=== PATIENT | female | born 1980 ===

== ENCOUNTER 2020-10-25 10:49 | Emergency (ER) | payer OTHER, SELFPAY ==
[2020-10-25 10:57] VITALS: BP 166/69; PULSE 77; RESP 17; TEMP 36.5; O2SAT 97; BMI 40.2
--- NOTE | 2020-10-25 11:03 | ED_ITS ---
HPI - Extremity Problem General Chief complaint: Extremity Injury, Upper Stated complaint: shoulder and arm pain,rt Time Seen by Provider: 10/25/20 10:57 Source: patient Mode of arrival: ambulatory Limitations: no limitations History of Present Illness HPI Narrative: 40 yo female here with right sided neck pain which radiates to the right shoulder and down the right arm x 1 month. No injury or trauma. Patient taking Tylenol and using he denies at home with continued pain. No numbness or tingling. MD Complaint: extremity pain Onset (ago): month(s) Pain Consistency: intermittent Location: right Quality: burning Radiation: distal Relieving factors: nothing Exacerbating factors: nothing Associated symptoms: denies other symptoms Related Data Previous Rx's Medication Instructions Recorded dexamethasone [Decadron] 4 mg PO DAILY #5 tab 10/25/20 hydrocodone-acetaminophen 1 tab PO Q4-6H PRN #5 tab 10/25/20 methocarbamol [Robaxin-750] 750 mg PO Q8H #10 tab 10/25/20 Allergies Allergy/AdvReac Type Severity Reaction Status Date / Time aspirin [Aspirin] Allergy Unknown HIVES, Verified 10/25/20 10:59 swollen throat penicillin V Allergy Unknown swollen Verified 10/25/20 10:59 throat Penicillins Allergy Unknown BREATHING Verified 10/25/20 10:59 PROBLEM SEAFOOD Allergy Unknown ANAPHYLAXIS Uncoded 07/07/20 15:23 Shrimp Flavor Allergy Unknown Unknown Uncoded 10/25/20 10:59 Review of Systems Review of Systems: Yes all other systems are reviewed and are negative Constitutional: Constitutional: Reports no additional constitutional complaints, Denies body ache(s), Denies chills, Denies fever(s), Denies headache(s) and Denies weakness Eyes: Eyes: Reports no additional eye complaints and Denies change in vision ENT: Reports system reviewed and no additional complaints, except as documented, Denies dizziness, Denies headache(s), Denies nasal congestion, Denies nasal discharge and Denies neck pain Cardiovascular: Cardiovascular: Reports no additional cardiovascular complaints, Denies chest pain, Denies leg edema and Denies dyspnea Respiratory: Respiratory: Reports no additional respiratory complaints, Denies cough and Denies dyspnea Gastrointestinal: Gastrointestinal: Reports no additional gastrointestinal complaints, Denies abdominal pain, Denies diarrhea, Denies nausea and Denies vomiting Genitourinary: Genitourinary: Reports no additional female genitourinary complaints and Denies urinary incontinence Musculoskeletal: Musculoskeletal: Reports no additional musculoskeletal complaints, Denies back pain, Reports arthralgias, Denies joint swelling, Denies neck pain, Denies numbness and Denies tingling Integumentary/Breasts: Skin/Breast: Reports system reviewed and no additional complaints, except as docu and Denies rash Neurologic: Reports system reviewed and no additional complaints, except as documented, Denies Abnormal speech present, Denies dizziness, Denies headache(s), Denies numbness, Denies tingling and Denies weakness [facility] Past Medical History Attestation statement: The following information was validated with the patient. Source: old records reviewed and nursing notes reviewed Medical History Asthma Heart murmur Surgical History History of carpal tunnel surgery Social History Social History Advance Directives: No Advance Directives Information Provided: No Physical Exam Vital Signs: Vital Signs: Last Vital Signs Temp 97.7 F 10/25/20 10:57 Pulse 77 10/25/20 10:57 Resp 17 10/25/20 10:57 BP 166/69 H 10/25/20 10:57 Pulse Ox 97 10/25/20 10:57 Body Mass Index 40.2 Const: General: cooperative, healthy appearing, comfortable and no acute distress Orientation/consciousness: patient oriented x3 Limitations: no limitations HENMT: Head: Yes normal to inspection Ears: hearing grossly normal bilaterally General nose exam: Normal external nose present Face and sinus: Yes normal facial exam Mouth: Normal oral and palatal mucosa present Throat: Yes posterior oropharynx normal Eyes: General: appearance normal, both eyes and all related structures Pupils: Equal, round and reactive pupils present Neck: Neck: Yes normal visual inspection Chest: Chest palpation & inspection: normal inspection of the chest Resp: Effort & Inspection: normal respiratory effort Auscultation: clear to auscultation bilaterally Cardio: Rate: regular rate Rhythm: regular rhythm Peripheral pulses: Peripheral pulses 2+ throughout GI: Inspection: Yes normal to inspection Palpation (GI): Soft to palpation and nontender Auscultation: normal bowel sounds Back/Spine/Pelvis: Thoracic/Lumbar Spine: thoracic and lumbar spine normal to inspection Skin: General skin exam: no rashes or lesions noted Neuro: General: patient oriented x3, no focal motor deficits and normal sensation to monofilament Cranial nerves: Yes Equal, round and reactive pupils present Cognition (Neuro): normal cognition Speech: No Abnormal speech present Gait exam (Neuro): Normal gait present Motor exam (neuro): 5/5 motor strength present throughout Extrem: Other: Pain with palpable muscle spasm over the right trapezius. When manipulated the patient tells me she has pain which radiates down the right arm. Full range of motion of shoulder. Neurovascularly intact distally. Normal cap refill. No cervical tenderness. General: Yes normal to inspection Course Course Course Narrative: X-ray show a bone spur. Exam is more consistent with cervical radiculopathy. No neurological deficits. Discussed supportive care at home and follow-up outpatient with primary care. Reviewed worrisome signs and symptoms of when to return to the emergency department. Comfortable discharge home. MDM - Extremity (Nontraumatic) Imaging Data shoulder xray: Attestation: I personally reviewed and interpreted this imaging study as follows: Radiologist's impression: EXAMINATION: XR SHOULDER, RIGHT CLINICAL INFORMATION: Pain. No known trauma. COMPARISON: Radiographs right shoulder 01/17/2018 TECHNIQUE: Right shoulder is imaged in 3 views. FINDINGS: There is no fracture, dislocation, or destructive process. The glenohumeral joint is unremarkable. No joint narrowing or erosive change. The acromioclavicular alignment is normal. No degenerative changes. There are no visible rotator cuff calcifications. There is a small spur at the greater tuberosity. XR/XR shoulder RT min 2V IMPRESSION: Small spur greater tuberosity. Otherwise unremarkable exam. No arthropathy or visible rotator cuff calcifications. Discharge Plan Discharge Clinical Impression: Cervical radiculopathy Patient Disposition: Home, Self-Care Instructions: Cervical Radiculopathy (ED) Additional Instructions: Follow-up with your PCP. Consider seeing a chiropracter Heat to the area gentle stretching Prescriptions: New dexamethasone [Decadron] 4 mg tablet 4 mg PO DAILY Qty: 5 RF: 0 methocarbamol [Robaxin-750] 750 mg tablet 750 mg PO Q8H Qty: 10 RF: 0 hydrocodone-acetaminophen 5-300 mg tablet 1 tab PO Q4-6H PRN (Reason: pain) Qty: 5 RF: 0 Referrals: Stormy Browne MD [Primary Care Provider] - 2 days Interventions: ED Discharge Assessment Last Done: 10/25/20 12:20 Discharge Date/Time: 10/25/20 12:21
== END 2020-10-25 12:21 | disposition home or self-care (01) ==
PROVIDERS: Emergency Provider Emergency Medicine; PCP Internal Medicine
DX: M54.12 Radiculopathy, cervical region (principal)
CPT/HCPCS: 73030; 99282; 99283

== ENCOUNTER 2020-11-22 13:26 | Emergency (ER) | payer OTHER, SELFPAY ==
[2020-11-22 14:09] VITALS: BP 167/75; PULSE 72; RESP 18; TEMP 36.5; O2SAT 97; BMI 41.1
--- NOTE | 2020-11-22 14:32 | XR_ITS ---
EXAMINATION: RIGHT HAND/WRIST. CLINICAL INFORMATION: History of carpal tenderness with worsening/hand/wrist pain. COMPARISON: None TECHNIQUE: 4 views. FINDINGS: There is no visible acute fracture, dislocation or subluxation seen. The soft tissues are normal. XR/XR hand wrist RT IMPRESSION: Unremarkable right hand exam.
--- NOTE | 2020-11-22 14:32 | US_ITS ---
EXAMINATION: US VENOUS WITH DOPPLER UPPER EXTREMITY, RIGHT CLINICAL INFORMATION: Edema and swelling COMPARISON: 01/22/2019 TECHNIQUE: Ultrasound of the upper extremity is performed using compression sonography and color and pulse Doppler flow with assessment of augmentation of flow. There is also imaging and Doppler assessment of the jugular and subclavian veins. Spectral analysis with color-flow imaging is performed. FINDINGS: Respiratory variation, normal compression, and augmented flow are noted throughout the upper extremity including the axillary, brachial, cubital, and radial and ulnar veins. There is normal flow in the internal jugular and subclavian veins. There is no visible deep or superficial thrombophlebitis. If the patient's symptoms progress, a followup ultrasound in 5 -7 days might be of value to exclude proximal propagation from a nonvisualized distal arm vein. US/US venous duplex UE RT IMPRESSION: No DVT demonstrated in the right upper extremity
[2020-11-22] MEDS: oxyCODONE HCl Immed Release 5 MG TABLET PO (14:45)
--- NOTE | 2020-11-22 15:23 | ED.GENADULT ---
HPI - General Adult General Chief complaint: General Medical Stated complaint: R WRIST PAIN SURGERY 04/09 Time Seen by Provider: 11/22/20 14:25 Source: patient Mode of arrival: ambulatory Limitations: no limitations History of Present Illness HPI narrative: 40yoF c PMHx of carpal release surgery to right wrist presenting to the ED with complaints of worsening right hand/wrist pain with swelling since yesterday worse today. Denies any dizziness, headaches, changes in vision, jaw pain, paresthesias, chest pain, shortness of breath, dyspnea on exertion, orthopnea, symptoms or any other symptoms complaints or concerns at this time. Related Data Previous Rx's Medication Instructions Recorded dexamethasone [Decadron] 4 mg PO DAILY #5 tab 10/25/20 hydrocodone-acetaminophen 1 tab PO Q4-6H PRN #5 tab 10/25/20 methocarbamol [Robaxin-750] 750 mg PO Q8H #10 tab 10/25/20 acetaminophen [Tylenol Extra 1,000 mg PO QID PRN #14 tab 11/22/20 Strength] oxycodone 5 mg PO BID PRN #10 tab 11/22/20 prednisone 40 mg PO DAILY 5 Days #10 tab 11/22/20 Allergies Allergy/AdvReac Type Severity Reaction Status Date / Time aspirin [Aspirin] Allergy Unknown HIVES, Verified 10/25/20 10:59 swollen throat penicillin V Allergy Unknown swollen Verified 10/25/20 10:59 throat Penicillins Allergy Unknown BREATHING Verified 10/25/20 10:59 PROBLEM SEAFOOD Allergy Unknown ANAPHYLAXIS Uncoded 07/07/20 15:23 Shrimp Flavor Allergy Unknown Unknown Uncoded 10/25/20 10:59 Review of Systems Review of Systems: Constitutional : No Fever, No Chills, No Night Sweats, No Fatigue, No Malaise Eyes: No Eye Pain,No Discharge, No Vision Changes Cardiovascular : No Chest Pain, No SOB, No Dyspnea on Exertion, No Orthopnea, No Edema, No Palpitations Respiratory : No Cough, No Sputum, No Wheezing, No Dyspnea Gastrointestinal : No Nausea, No Vomiting, No Diarrhea, No Constipation, No abdominal Pain Genitourinary : No Dysuria, No Urinary Frequency, No Hematuria, No Urinary Incontinence, No Urgency, No Flank Pain, No Urinary Flow Changes, No Hesitancy Musculoskeletal : + joint pain/swelling, No Myalgias Skin : No Skin Lesions, No rash Neuro : No Weakness, No Numbness, No Paresthesias, No Loss of Consciousness, No Dizziness, No Headache Psych : No Anxiety/Panic, No Depression, No SI/HI/AH/VH, No Social Issues, Heme/Lymph: No Bruising, No Bleeding,No Lymphadenopathy Endocrine : No Polyuria, No Polydipsia, No Temperature Intolerance Yes all other systems are reviewed and are negative [facility] Past Medical History Attestation statement: The following information was validated with the patient. Medical History Asthma Heart murmur Surgical History History of carpal tunnel surgery Social History Social History Advance Directives: No Advance Directives Information Provided: Yes Physical Exam Vital Signs: Vital Signs: Last Vital Signs Temp 97.7 F 11/22/20 14:09 Pulse 72 11/22/20 14:09 Resp 18 11/22/20 14:09 BP 167/75 H 11/22/20 14:09 Pulse Ox 97 11/22/20 14:09 Body Mass Index 41.1 vital signs have been reviewed as normal and appeared to be correct. Blood pressure hypertensive. Heart rate normal. Respiration rate normal. Temperature normal. Oxygen saturation normal. Appearance: Alert. Oriented X3. No acute distress. Head: Normal external exam. Normocephalic. Atraumatic. Eyes: PERRLA. EOMI. Conjunctiva and sclera normal. Eyelids normal. ENT: Pharynx normal. Uvula midline. Moist mucous membranes. Neck: Normal inspection. Neck supple. FROM. No adenopathy. Thyroid Normal. Trachea midline. No meningeal signs. No neck mass noted. CVS: Normal heart rate and rhythm. Heart sound normal. No murmurs noted. Pulses normal throughout. Respiratory: No respiratory distress. Painless inspiration. Breath sounds normal. No wheezes/rales/rhonchi noted. Chest nontender. No accessory muscle usage noted or decreased air movement noted. Back: Full range of motion noted. Skin: Skin warm and dry. Normal skin color. Normal skin turgor. No rashes/lesions/lacerations noted. Extremities: Patient tender to palpation to right volar aspect of the distal wrist positive phalen;s/prayer sign consistent with carpal tunnel syndrome patient does have soft tissue swelling. No pitting edema to upper extremities. Patient has full range of motion of right shoulder/right elbow/right wrist and digits. No obvious deformities. No rashes/lesion/induration/fluctuance or signs infection noted. No laxity noted. No lower extremity edema. No calf tenderness noted. Otherwise all other Extremities exhibit normal range of motion and nontender. Neuro: Oriented X 3. No motor deficit. No sensory deficit. Reflexes normal. Course Course Course Narrative: 40yoF c PMHx of carpal release surgery to right wrist presenting to the ED with complaints of worsening right hand/wrist pain with swelling since yesterday worse today. - x-ray of right hand/wrist obtained and negative for any acute processes noted. - ultrasound of right upper extremity obtain if negative will DC home with symptomatic treatment along with instructions to return if any new or worsening symptoms and referral to hand surgeon. Patient understands agrees the plan. Medical Decision Making Medical Records Medical records reviewed: Yes I reviewed the patient's medical records. Lab Data Lab results reviewed: Yes I reviewed the patient's lab results. Imaging Data Right hand/wrist: Attestation: I personally reviewed and interpreted this imaging study as follows: Radiologist's impression: FINDINGS: There is no visible acute fracture, dislocation or subluxation seen. The soft tissues are normal. XR/XR hand wrist RT IMPRESSION: Unremarkable right hand exam. Right upper extremity venous Doppler: Attestation: I personally reviewed and interpreted this imaging study as follows: Radiologist's impression: FINDINGS: Respiratory variation, normal compression, and augmented flow are noted throughout the upper extremity including the axillary, brachial, cubital, and radial and ulnar veins. There is normal flow in the internal jugular and subclavian veins. There is no visible deep or superficial thrombophlebitis. If the patient's symptoms progress, a followup ultrasound in 5 -7 days might be of value to exclude proximal propagation from a nonvisualized distal arm vein. US/US venous duplex UE RT IMPRESSION: No DVT demonstrated in the right upper extremity Discharge Plan Discharge Clinical Impression: Acute carpal tunnel syndrome of right wrist Patient Disposition: Home, Self-Care Instructions: Carpal Tunnel Surgery (DC) Prescriptions: New acetaminophen [Tylenol Extra Strength] 500 mg tablet 1,000 mg PO QID PRN (Reason: fever or pain) Qty: 14 RF: 0 prednisone 20 mg tablet 40 mg PO DAILY 5 Days Qty: 10 RF: 0 oxycodone 5 mg tablet 5 mg PO BID PRN (Reason: pain) Qty: 10 RF: 0 No Action dexamethasone [Decadron] 4 mg tablet 4 mg PO DAILY Qty: 5 RF: 0 methocarbamol [Robaxin-750] 750 mg tablet 750 mg PO Q8H Qty: 10 RF: 0 hydrocodone-acetaminophen 5-300 mg tablet 1 tab PO Q4-6H PRN (Reason: pain) Qty: 5 RF: 0 Referrals: Isela Mo MD [Physician] - 1 week Stand Alone Forms: Work/School Release Print Language: Lithuanian
== END 2020-11-22 16:54 | disposition home or self-care (01) ==
PROVIDERS: Emergency Provider Emergency Medicine; PCP Internal Medicine
DX: G56.01 Carpal tunnel syndrome, right upper limb (principal); M25.531 Pain in right wrist
CPT/HCPCS: 29125; 73110; 73130; 93971; 99283; 99284

== ENCOUNTER 2022-08-12 15:55 | Emergency (ER) | payer OTHER, SELFPAY ==
[2022-08-12 16:39] VITALS: BP 183/108; PULSE 71; RESP 18; TEMP 36.6; O2SAT 99; BMI 38.6
--- NOTE | 2022-08-12 21:57 | ED_ITS ---
HPI - General Adult General Chief complaint: General Medical Stated complaint: ?Dental infection Time Seen by Provider: 08/12/22 21:36 Source: patient Mode of arrival: ambulatory History of Present Illness HPI narrative: 32-year-old female who presents with left upper molar pain that started approximately 2 weeks ago after the ?tooth cracked? and since that time she is been attempting multiple times to make an appointment to see the dentist, she denies any fevers or chills but states she has noted some left cheek swelling and denies any ear pain, difficulty swallowing or difficulty breathing. Related Data Previous Rx's Medication Instructions Recorded dexamethasone 4 mg tablet 4 mg PO DAILY #5 tabs 10/25/20 (Decadron) hydrocodone 5 mg-acetaminophen 300 1 tab PO Q4-6H PRN pain #5 tabs 10/25/20 mg tablet methocarbamol 750 mg tablet 750 mg PO Q8H #10 tabs 10/25/20 (Robaxin-750) acetaminophen 500 mg tablet 1,000 mg PO QID PRN fever or pain 11/22/20 (Tylenol Extra Strength) #14 tabs oxycodone 5 mg tablet 5 mg PO BID PRN pain #10 tabs 11/22/20 prednisone 20 mg tablet 40 mg PO DAILY rash 5 days #10 tabs 11/22/20 clindamycin HCl 300 mg capsule 300 mg PO Q6H 5 days #20 caps 08/12/22 Allergies Allergy/AdvReac Type Severity Reaction Status Date / Time aspirin [Aspirin] Allergy Unknown HIVES, Verified 08/12/22 16:39 swollen throat penicillin V Allergy Unknown swollen Verified 08/12/22 16:39 throat Penicillins Allergy Unknown BREATHING Verified 08/12/22 16:39 PROBLEM SEAFOOD Allergy Unknown ANAPHYLAXIS Uncoded 07/07/20 15:23 Shrimp Flavor Allergy Unknown Unknown Uncoded 10/25/20 10:59 Review of Systems Review of Systems: Pertinent positives and negatives as stated in HPI 10 point review of systems is otherwise negative. [facility] Past Medical History Source: nursing notes reviewed Medical History Asthma Heart murmur Surgical History History of carpal tunnel surgery Social History Social History Advance Directives: No Advance Directives Information Provided: No Physical Exam ED Vital Signs: Vital Signs - 24 hr 08/12/22 16:39 Temperature 97.9 F Pulse Rate 71 Respiratory Rate 18 Blood Pressure 183/108 H Pulse Oximetry 99 Oxygen Delivery Method Room Air BMI result Body Mass Index 38.6 VITAL SIGNS: Reviewed. GENERAL: Well developed, well nourished, in no acute distress. HEAD: Normocephalic/atraumatic EYES: PERRLA, EOMI EARS: Ext canals without abnormality, TMs non-bulging and non-erythematous NOSE: Nares patent bilateral OROPHARYNX: no oral lesions noted, posterior pharynx clear, left upper molar that is obviously cracked and there is noted gingival swelling and some mild nuchal swelling is noted, there is no trismus NECK: Supple, no adenopathy LUNGS: Normal breath sounds. No adventitious sounds or accessory muscle use. SpO2<99> CARDIOVASCULAR: Regular rate and rhythm without noted murmurs ABDOMEN: Soft, non-tender, non-distended with bowel sounds. MUSCULOSKELETAL: No tenderness, deformities, or effusions noted on gross inspection. EXTREMITIES: No cyanosis, clubbing or edema. SKIN: Inspection of the skin reveals no rashes NEUROLOGIC: Alert and oriented x 4. Strength and sensation to light touch were grossly intact x 4. Course Course Course Narrative: 42-year-old female with noted cracked tooth and evidence to suggest dental infection without concerns for airway. Patient was given topical pain medication as well as Tylenol and initial dose of antibiotics. She was then discharged home in stable condition. Discharge Plan Discharge Clinical Impression: Abscess, dental Patient Disposition: Home, Self-Care Instructions: Dental Abscess (ED) Additional Instructions: 1. Resume all home medications as prescribed. 2. Complete the entire course of antibiotics as prescribed. 3. Tylenol 1000 mg, orally, every 6 hours as needed for pain control. Do not exceed 4000 mg within 24 hours. Additional pain relief can be obtained from application of an ice pack to unexposed skin for 5-10 minutes, 3 to 4 times a day. 4. Please attempt to make an appointment with your primary care provider/dentist at your earliest convenience. Return to the ER for worsening symptoms. Prescriptions: New clindamycin HCl 300 mg capsule 300 mg PO Q6H 5 Days Qty: 20 0RF No Action dexamethasone [Decadron] 4 mg tablet 4 mg PO DAILY Qty: 5 0RF methocarbamol [Robaxin-750] 750 mg tablet 750 mg PO Q8H Qty: 10 0RF hydrocodone-acetaminophen 5-300 mg tablet 1 tab PO Q4-6H PRN (Reason: pain) Qty: 5 0RF acetaminophen [Tylenol Extra Strength] 500 mg tablet 1,000 mg PO QID PRN (Reason: fever or pain) Qty: 14 0RF prednisone 20 mg tablet 40 mg PO DAILY 5 Days Qty: 10 0RF oxycodone 5 mg tablet 5 mg PO BID PRN (Reason: pain) Qty: 10 0RF Referrals: Stormy Browne MD [Primary Care Provider] -
[2022-08-12 22:00] VITALS: BP 198/94; PULSE 73; RESP 18; TEMP 35.7; O2SAT 100
--- NOTE | 2022-08-12 22:07 | ED.GENADULT ---
HPI - General Adult General Chief complaint: General Medical Stated complaint: ?Dental infection Time Seen by Provider: 08/12/22 21:36 Source: patient Mode of arrival: ambulatory Related Data Previous Rx's Medication Instructions Recorded dexamethasone 4 mg tablet 4 mg PO DAILY #5 tabs 10/25/20 (Decadron) hydrocodone 5 mg-acetaminophen 300 1 tab PO Q4-6H PRN pain #5 tabs 10/25/20 mg tablet methocarbamol 750 mg tablet 750 mg PO Q8H #10 tabs 10/25/20 (Robaxin-750) acetaminophen 500 mg tablet 1,000 mg PO QID PRN fever or pain 11/22/20 (Tylenol Extra Strength) #14 tabs oxycodone 5 mg tablet 5 mg PO BID PRN pain #10 tabs 11/22/20 prednisone 20 mg tablet 40 mg PO DAILY rash 5 days #10 tabs 11/22/20 clindamycin HCl 300 mg capsule 300 mg PO Q6H 5 days #20 caps 08/12/22 Allergies Allergy/AdvReac Type Severity Reaction Status Date / Time aspirin [Aspirin] Allergy Unknown HIVES, Verified 08/12/22 16:39 swollen throat penicillin V Allergy Unknown swollen Verified 08/12/22 16:39 throat Penicillins Allergy Unknown BREATHING Verified 08/12/22 16:39 PROBLEM SEAFOOD Allergy Unknown ANAPHYLAXIS Uncoded 07/07/20 15:23 Shrimp Flavor Allergy Unknown Unknown Uncoded 10/25/20 10:59 [facility] Past Medical History Medical History Asthma Heart murmur Surgical History History of carpal tunnel surgery Social History Social History Advance Directives: No Advance Directives Information Provided: No Physical Exam ED Vital Signs: Vital Signs - 24 hr 08/12/22 16:39 08/12/22 22:00 Temperature 97.9 F 96.3 F L Pulse Rate 71 73 Respiratory Rate 18 18 Blood Pressure 183/108 H 198/94 H Pulse Oximetry 99 100 Oxygen Delivery Method Room Air Room Air BMI result Body Mass Index 38.6 Discharge Plan Discharge Clinical Impression: Abscess, dental, Hypertension Patient Disposition: Home, Self-Care Instructions: Dental Abscess (ED) Additional Instructions: 1. Resume all home medications as prescribed. 2. Complete the entire course of antibiotics as prescribed. 3. Tylenol 1000 mg, orally, every 6 hours as needed for pain control. Do not exceed 4000 mg within 24 hours. Additional pain relief can be obtained from application of an ice pack to unexposed skin for 5-10 minutes, 3 to 4 times a day. 4. Please attempt to make an appointment with your primary care provider/dentist at your earliest convenience. Return to the ER for worsening symptoms. Prescriptions: New clindamycin HCl 300 mg capsule 300 mg PO Q6H 5 Days Qty: 20 0RF No Action dexamethasone [Decadron] 4 mg tablet 4 mg PO DAILY Qty: 5 0RF methocarbamol [Robaxin-750] 750 mg tablet 750 mg PO Q8H Qty: 10 0RF hydrocodone-acetaminophen 5-300 mg tablet 1 tab PO Q4-6H PRN (Reason: pain) Qty: 5 0RF acetaminophen [Tylenol Extra Strength] 500 mg tablet 1,000 mg PO QID PRN (Reason: fever or pain) Qty: 14 0RF prednisone 20 mg tablet 40 mg PO DAILY 5 Days Qty: 10 0RF oxycodone 5 mg tablet 5 mg PO BID PRN (Reason: pain) Qty: 10 0RF Referrals: Stormy Browne MD [Primary Care Provider] - Interventions: ED Discharge Assessment Last Done: 08/12/22 22:19 Discharge Date/Time: 08/12/22 22:19
[2022-08-12] MEDS: Clindamycin HCL 300 MG CAPSULE PO (22:15)
[2022-08-12] MEDS: Acetaminophen 325 MG TABLET 975 MG PO (22:15)
[2022-08-12] MEDS: amLODIPine Besylate 10 MG TABLET 5 MG PO (22:15)
== END 2022-08-12 22:19 | disposition home or self-care (01) ==
PROVIDERS: Emergency Provider Student in an Organized Health Care Education/Training Program; PCP Internal Medicine
DX: K04.7 Periapical abscess without sinus (principal); Z79.899 Other long term (current) drug therapy
CPT/HCPCS: 99283

== ENCOUNTER 2023-06-10 21:08 | Emergency (ER) | payer OTHER, SELFPAY ==
--- NOTE | 2023-06-10 | ECG_ITS ---
Test Reason : chest pain Blood Pressure : / mmHG Vent. Rate : 074 BPM Atrial Rate : 074 BPM P-R Int : 162 ms QRS Dur : 088 ms QT Int : 410 ms P-R-T Axes : 053 026 021 degrees QTc Int : 455 ms Normal sinus rhythm Normal ECG When compared with ECG of 24-OCT-2018 02:56, No significant change was found Referred By: Generic ED Physician Electronically Signed By:SAMUEL SY
--- NOTE | ~2023-06-10 | XR_ITS ---
EXAMINATION: XR SHOULDER, LEFT CLINICAL INFORMATION: Shoulder pain COMPARISON: None available. TECHNIQUE: Three views of the left shoulder. FINDINGS: Glenohumeral alignment is anatomic. No acute fracture is seen. The acromioclavicular joint is intact. XR/XR shoulder LT min 2V IMPRESSION: No acute findings.
--- NOTE | ~2023-06-10 | XR_ITS ---
EXAMINATION: XR CHEST CLINICAL INFORMATION: Chest pain COMPARISON: 10/24/2018 TECHNIQUE: Frontal view of the chest was obtained. FINDINGS: The lungs are clear with no focal consolidation. No evidence of pneumothorax, pulmonary edema, or pleural effusions. The cardiomediastinal silhouette is unremarkable. No acute osseous findings. XR/XR chest 1V IMPRESSION: No acute cardiopulmonary findings.
[2023-06-10 21:35] VITALS: BP 158/102; PULSE 71; RESP 18; TEMP 36.3; O2SAT 98; BMI 35.1
[2023-06-10 21:36] LABS: MANUAL DIFF FLAG NO
[2023-06-10 21:53] LABS: Alanine Aminotransferase 12 U/L (0-31); Albumin Level 4.1 g/dL (3.5-5.0); Alkaline Phosphatase 71 U/L (39-117); Anion Gap 14 (12-20); Aspartate Amino Transferase 16 U/L (5-31); Bilirubin Total 0.2 mg/dL (0.0-1.0); Blood Urea Nitrogen 11 mg/dL (9-16); Calcium 9.5 mg/dL (8.4-10.2); Carbon Dioxide 25 mmol/L (22-29); Chloride 107 mmol/L (96-108); Creatinine Clr Calc Pharmacy 86.4; Estimated Glomerular Filt Rate > 60; Glucose Random 100 mg/dL (60-115); Potassium 3.6 mmol/L (3.3-5.1); Sodium 142 mmol/L (135-145); Total Protein 7.9 g/dL (6.5-8.0)
[2023-06-10 21:59] LABS: IDNOW Serial# 08D9AD1C; Strep A Nucleic Acid Negative (Negative)
[2023-06-10 22:00] LABS: Basophils Percent Auto 0.5 % (0-2); Eosinophils Absolute Auto 0.2 X10*3/uL (0.0-0.4); Eosinophils Percent Auto 2.6 % (0-4); Hemoglobin 9.6 g/dl (12.0-16.0); Imm Gran Abs Auto 0.02 X10*3/uL (0.00-0.03); Imm Gran Pct Auto 0.2 % (0.0-0.4); Lymphocytes Absolute Auto 3.7 X10*3/uL (1.2-4.9); Lymphocytes Percent Auto 45.3 % (20-40); Mean Corpuscular Hemoglobin 25.1 pg (27.0-33.0); Mean Corpuscular Volume 78.5 fL (80.0-98.0); Mean Platelet Volume 9.6 fL (9.4-12.3); Monocytes Absolute Auto 0.5 X10*3/uL (0.1-1.2); Monocytes Percent Auto 6.3 % (2-11); Neutrophils Absolute Auto 3.7 x10*3/uL (2.0-8.3); Neutrophils Percent Auto 45.1 % (45-73); Platelet Count 345 X10*3/uL (160-400); Red Blood Count 3.82 X10*6/uL (4.20-5.50); Red Cell Distribution Width 14.6 % (11.0-16.0); White Blood Count 8.2 X10*3/uL (4.8-10.8)
[2023-06-10 22:02] LABS: COVID-19 Test Negative (Negative); IDNOW Serial# BCCEAD1C
[2023-06-10 22:05] LABS: Troponin-I High Sensitivity < 2.7 ng/L (<3.5-17.0)
[2023-06-11 00:30] VITALS: BP 195/96; PULSE 68; PULSE 70; RESP 16; O2SAT 100
--- NOTE | 2023-06-11 00:57 | PC.NURSE ---
this RN brought patient back to room, placed on granite fabricator, Pt reported having high blood pressure, this RN took blood pressure again, continues to be high. Awaiting MD orders at this time
[2023-06-11 01:23] LABS: D Dimer High Sensitivity 166 NG/ML
--- NOTE | 2023-06-11 01:28 | ED.CHESTPAIN ---
HPI - Chest Pain General Chief Complaint: Chest Pain Stated Complaint: L arm pain radiates to the chest Time Seen by Provider: 06/11/23 00:51 Source: patient and family Mode of arrival: ambulatory Limitations: no limitations History of Present Illness HPI narrative: 43-year-old female otherwise healthy presented for left shoulder/left arm pain that started about 2 hours before presenting to the hospital today, pain was described as dull aching pain radiating to the left chest, complained of generalized weakness and lightheadedness and dizziness with sore throat with recent treatment of a family member for strep pharyngitis. Related Data Previous Rx's Medication Instructions Recorded dexamethasone 4 mg tablet 4 mg PO DAILY #5 tabs 10/25/20 (Decadron) hydrocodone 5 mg-acetaminophen 300 1 tab PO Q4-6H PRN pain #5 tabs 10/25/20 mg tablet methocarbamol 750 mg tablet 750 mg PO Q8H #10 tabs 10/25/20 (Robaxin-750) acetaminophen 500 mg tablet 1,000 mg PO QID PRN fever or pain 11/22/20 (Tylenol Extra Strength) #14 tabs oxycodone 5 mg tablet 5 mg PO BID PRN pain #10 tabs 11/22/20 prednisone 20 mg tablet 40 mg PO DAILY rash 5 days #10 tabs 11/22/20 clindamycin HCl 300 mg capsule 300 mg PO Q6H 5 days #20 caps 08/12/22 Allergies Allergy/AdvReac Type Severity Reaction Status Date / Time aspirin [Aspirin] Allergy Unknown HIVES, Verified 06/10/23 21:35 swollen throat penicillin V Allergy Unknown swollen Verified 06/10/23 21:35 throat Penicillins Allergy Unknown BREATHING Verified 06/10/23 21:35 PROBLEM SEAFOOD Allergy Unknown ANAPHYLAXIS Uncoded 07/07/20 15:23 Shrimp Flavor Allergy Unknown Unknown Uncoded 10/25/20 10:59 Review of Systems Review of Systems: All other systems are reviewed and are negative Constitutional: Reports as per HPI and Reports no additional constitutional complaints Eyes: Reports as per HPI and Reports no additional eye complaints Reports system reviewed and no additional complaints, except as documented Cardiovascular: Reports as per HPI and Reports no additional cardiovascular complaints Respiratory: Reports as per HPI and Reports no additional respiratory complaints Gastrointestinal: Reports as per HPI and Reports no additional gastrointestinal complaints Genitourinary: Reports no additional female genitourinary complaints Musculoskeletal: Reports no additional musculoskeletal complaints Skin/Breast: Reports system reviewed and no additional complaints, except as docu Psychiatric: Reports no additional psychiatric complaints Endocrine: Reports no additional endocrine complaints Hematologic/Lymphatic: Reports no additional hematologic/lymphatic complaints Allergic/Immunologic: Reports no additional allergic/immunologic complaints Reports system reviewed and no additional complaints, except as documented and Reports Abnormal speech present FORMERLY [facility], [facility] Past Medical History Medical History Asthma Heart murmur Surgical History History of carpal tunnel surgery Social History Social History Alcohol intake: never Smoked in Last 30 Days: No Use of substances other than those prescribed or required for medical reasons: No Advance Directives: No Advance Directives Information Provided: Yes Patient : No Physical Exam Vital Signs: Vital Signs: Last Vital Signs Temp 98.5 F 06/11/23 02:04 Pulse 68 06/11/23 02:04 Resp 13 06/11/23 02:04 BP 165/89 H 06/11/23 02:04 Pulse Ox 98 06/11/23 02:04 O2 Del Method Room Air 06/11/23 02:04 BMI result Body Mass Index 35.1 Vital signs have been reviewed as appeared to be correct. Blood pressure elevated. Heart rate normal. Respiration rate normal. Temperature normal. Oxygen saturation normal. Appearance: Alert. Oriented X3. No acute distress. Head: Normal external exam. Normocephalic. Atraumatic. No Johnson signs noted. No raccoon eyes noted Eyes: PERRLA. EOMI. Conjunctiva and sclera normal. Eyelids normal. ENT: TM's Normal. Pharynx normal. Uvula midline. Moist mucous membranes. No trismus noted. No drooling noted. No muffled voice noted. Neck: Normal inspection. Neck supple. FROM. No adenopathy. Thyroid Normal. No meningeal signs. No neck mass noted. CVS: Normal heart rate and rhythm. Heart sound normal. No murmurs noted. Pulses normal throughout. Respiratory: No respiratory distress. Painless inspiration. Breath sounds normal. No wheezes/rales/rhonchi noted. Chest nontender. No accessory muscle usage noted or decreased air movement noted. Abdomen: Soft and nontender. Bowel sounds normal in all 4 quadrants. No distention noted. No organomegaly noted. No visible injury noted. Back: No CVA tenderness. Full range of motion noted. Skin: Skin warm and dry. Normal skin color. Normal skin turgor. No rashes/lesions/lacerations noted. Extremities: No lower extremity edema. Extremities exhibit normal range of motion. Extremities nontender. Neuro: Oriented X 3. Cranial nerve exam: II-XII are grossly intact No motor deficit. No sensory deficit. Reflexes normal. Course Course Course Narrative: 03:00: 43-year-old female came in with left arm/left shoulder pain and atypical left chest pain negative workup for ACS patient with HEART score of 1. Declined any recent history of prolonged immobilization or recent surgery, no history of DVT, in light of negative D-dimer and in absence of arm swelling DVT in the left upper extremity is not likely. Left shoulder x-ray is unremarkable for acute pathology. Medications Administered Discontinued Medications Generic Name Dose Route Start Last Admin Trade Name Freq PRN Reason Stop Dose Admin Acetaminophen 650 mg 06/11/23 02:15 06/11/23 02:26 Acetaminophen 325 Mg Tablet PO 06/11/23 02:16 650 mg ONCE ONE Administration Medical Decision Making Differential Diagnosis Differential Diagnoses: The differential diagnosis associated with the presentation includes (ACS, left upper extremity DVT, pneumothorax, pleural effusion, severe anemia, electrolyte abnormality, left shoulder fracture, left shoulder dislocation.) Admission/Observation Consideration of admission/observation: Escalation of care including admission/observation considered Lab Data MDM Lab Attestation statement: I reviewed the patient's lab results. 06/10/23 21:31 06/10/23 21:31 Labs: Lab Results 06/10/23 06/10/23 06/10/23 Range/Units 21:31 21:31 21:31 WBC 8.2 (4.8-10.8) X10*3/uL RBC 3.82 L (4.20-5.50) X10*6/uL Hgb 9.6 L (12.0-16.0) g/dl Hct 30.0 L (37.0-47.0) % MCV 78.5 L (80.0-98.0) fL MCH 25.1 L (27.0-33.0) pg MCHC 32.0 (31.0-35.0) g/dl RDW 14.6 (11.0-16.0) % Plt Count 345 (160-400) X10*3/uL MPV 9.6 (9.4-12.3) fL Immature Gran % (Auto) 0.2 (0.0-0.4) % Neut % (Auto) 45.1 (45-73) % Lymph % (Auto) 45.3 H (20-40) % [place] % (Auto) 6.3 (2-11) % Eos % (Auto) 2.6 (0-4) % Baso % (Auto) 0.5 (0-2) % Lymph # (Auto) 3.7 (1.2-4.9) X10*3/uL [place] # (Auto) 0.5 (0.1-1.2) X10*3/uL Eos # (Auto) 0.2 (0.0-0.4) X10*3/uL Baso # (Auto) 0.0 (0.0-0.2) X10*3/uL Abs Immat Gran (auto) 0.02 (0.00-0.03) X10*3/uL Absolute Neuts (auto) 3.7 (2.0-8.3) x10*3/uL Absolute Nucleated RBC 0.000 (0.0-0.012) X10*3/uL Nucleated RBC % (auto) 0.0 (0.0-0.2) /100WBC D-Dimer High Sensitivty NG/ML Sodium 142 (135-145) mmol/L Potassium 3.6 (3.3-5.1) mmol/L Chloride 107 (96-108) mmol/L Carbon Dioxide 25 (22-29) mmol/L Anion Gap 14 (12-20) BUN 11 (9-16) mg/dL Creatinine 0.86 (0.5-1.4) mg/dL Estim Creat Clear Calc 86.4 Estimated GFR > 60 Random Glucose 100 (60-115) mg/dL Calcium 9.5 (8.4-10.2) mg/dL Total Bilirubin 0.2 (0.0-1.0) mg/dL AST 16 (5-31) U/L ALT 12 (0-31) U/L Alkaline Phosphatase 71 (39-117) U/L Troponin I High Sens < 2.7 (<3.5-17.0) ng/L Total Protein 7.9 (6.5-8.0) g/dL Albumin 4.1 (3.5-5.0) g/dL COVID-19 ([facility]) (Negative) COVID-19 Clin Com S. pyogenes GrpA TANA (Negative) 06/10/23 06/10/23 06/11/23 Range/Units 21:42 21:42 01:06 WBC (4.8-10.8) X10*3/uL RBC (4.20-5.50) X10*6/uL Hgb (12.0-16.0) g/dl Hct (37.0-47.0) % MCV (80.0-98.0) fL MCH (27.0-33.0) pg MCHC (31.0-35.0) g/dl RDW (11.0-16.0) % Plt Count (160-400) X10*3/uL MPV (9.4-12.3) fL Immature Gran % (Auto) (0.0-0.4) % Neut % (Auto) (45-73) % Lymph % (Auto) (20-40) % [place] % (Auto) (2-11) % Eos % (Auto) (0-4) % Baso % (Auto) (0-2) % Lymph # (Auto) (1.2-4.9) X10*3/uL [place] # (Auto) (0.1-1.2) X10*3/uL Eos # (Auto) (0.0-0.4) X10*3/uL Baso # (Auto) (0.0-0.2) X10*3/uL Abs Immat Gran (auto) (0.00-0.03) X10*3/uL Absolute Neuts (auto) (2.0-8.3) x10*3/uL Absolute Nucleated RBC (0.0-0.012) X10*3/uL Nucleated RBC % (auto) (0.0-0.2) /100WBC D-Dimer High Sensitivty 166 NG/ML Sodium (135-145) mmol/L Potassium (3.3-5.1) mmol/L Chloride (96-108) mmol/L Carbon Dioxide (22-29) mmol/L Anion Gap (12-20) BUN (9-16) mg/dL Creatinine (0.5-1.4) mg/dL Estim Creat Clear Calc Estimated GFR Random Glucose (60-115) mg/dL Calcium (8.4-10.2) mg/dL Total Bilirubin (0.0-1.0) mg/dL AST (5-31) U/L ALT (0-31) U/L Alkaline Phosphatase (39-117) U/L Troponin I High Sens (<3.5-17.0) ng/L Total Protein (6.5-8.0) g/dL Albumin (3.5-5.0) g/dL COVID-19 ([facility]) Negative (Negative) COVID-19 Clin Com See Note S. pyogenes GrpA TANA Negative (Negative) 06/11/23 Range/Units 02:13 WBC (4.8-10.8) X10*3/uL RBC (4.20-5.50) X10*6/uL Hgb (12.0-16.0) g/dl Hct (37.0-47.0) % MCV (80.0-98.0) fL MCH (27.0-33.0) pg MCHC (31.0-35.0) g/dl RDW (11.0-16.0) % Plt Count (160-400) X10*3/uL MPV (9.4-12.3) fL Immature Gran % (Auto) (0.0-0.4) % Neut % (Auto) (45-73) % Lymph % (Auto) (20-40) % [place] % (Auto) (2-11) % Eos % (Auto) (0-4) % Baso % (Auto) (0-2) % Lymph # (Auto) (1.2-4.9) X10*3/uL [place] # (Auto) (0.1-1.2) X10*3/uL Eos # (Auto) (0.0-0.4) X10*3/uL Baso # (Auto) (0.0-0.2) X10*3/uL Abs Immat Gran (auto) (0.00-0.03) X10*3/uL Absolute Neuts (auto) (2.0-8.3) x10*3/uL Absolute Nucleated RBC (0.0-0.012) X10*3/uL Nucleated RBC % (auto) (0.0-0.2) /100WBC D-Dimer High Sensitivty NG/ML Sodium (135-145) mmol/L Potassium (3.3-5.1) mmol/L Chloride (96-108) mmol/L Carbon Dioxide (22-29) mmol/L Anion Gap (12-20) BUN (9-16) mg/dL Creatinine (0.5-1.4) mg/dL Estim Creat Clear Calc Estimated GFR Random Glucose (60-115) mg/dL Calcium (8.4-10.2) mg/dL Total Bilirubin (0.0-1.0) mg/dL AST (5-31) U/L ALT (0-31) U/L Alkaline Phosphatase (39-117) U/L Troponin I High Sens < 2.7 (<3.5-17.0) ng/L Total Protein (6.5-8.0) g/dL Albumin (3.5-5.0) g/dL COVID-19 ([facility]) (Negative) COVID-19 Clin Com S. pyogenes GrpA TANA (Negative) Independent Interpretation I performed an independent interpretation of an: EKG (Normal sinus rhythm at 74 beats per minutes, normal axis deviation, normal intervals, no ST-T changes.) and Plain X-Ray (Chest/left shoulder: No acute pathology.) Radiology Impression Discussion of test interpretation with radiology: I have reviewed the radiologist's reading. Discharge Plan Discharge Clinical Impression: Atypical chest pain, Acute shoulder pain Patient Disposition: Home, Self-Care Instructions: Chest Pain (ED) Additional Instructions: Follow-up with PCP. Prescriptions: No Action dexamethasone [Decadron] 4 mg tablet 4 mg PO DAILY Qty: 5 0RF methocarbamol [Robaxin-750] 750 mg tablet 750 mg PO Q8H Qty: 10 0RF hydrocodone-acetaminophen 5-300 mg tablet 1 tab PO Q4-6H PRN (Reason: pain) Qty: 5 0RF acetaminophen [Tylenol Extra Strength] 500 mg tablet 1,000 mg PO QID PRN (Reason: fever or pain) Qty: 14 0RF prednisone 20 mg tablet 40 mg PO DAILY 5 Days Qty: 10 0RF oxycodone 5 mg tablet 5 mg PO BID PRN (Reason: pain) Qty: 10 0RF clindamycin HCl 300 mg capsule 300 mg PO Q6H 5 Days Qty: 20 0RF
[2023-06-11 02:04] VITALS: BP 165/89; PULSE 68; RESP 13; TEMP 36.9; O2SAT 98
[2023-06-11] MEDS: Acetaminophen 325 MG TABLET 650 MG PO (02:26)
[2023-06-11 02:39] LABS: Troponin-I High Sensitivity < 2.7 ng/L (<3.5-17.0)
== END 2023-06-11 03:13 | disposition home or self-care (01) ==
PROVIDERS: Emergency Provider Emergency Medicine
DX: R07.89 Other chest pain (principal); M25.512 Pain in left shoulder; Z20.822 Contact with and (suspected) exposure to COVID-19
CPT/HCPCS: 36415; 71045; 73030; 80053; 84484; 85025; 85379; 87635; 87651; 93005; 99283; 99285

== ENCOUNTER 2024-12-11 16:20 | Emergency (ER) | payer OTHER, SELFPAY ==
--- NOTE | ~2024-12-11 | CT_ITS ---
CLINICAL HISTORY: trauma CT maxillofacial without contrast Comparison: None Findings: No acute fractures. Temporomandibular joints are intact. Mild bilateral ethmoid sinus mucosal thickening. Mild left frontal sinus mucosal thickening. Mild bilateral maxillary sinus mucosal thickening. Mastoids clear. Right ostiomeatal unit is opacified. Left ostiomeatal unit is opacified. Mild leftward deviation of the nasal septum anteriorly. Mild rightward deviation of the posterior nasal septum. Orbital contents within normal limits. Visualized intracranial contents are within normal limits. No foreign bodies. IMPRESSION: 1. Sinus disease. 2. Right ostiomeatal unit opacification. 3. Nasal septal deviation as above. 4. No fracture. This document has been electronically signed by: Flakita Rosa MD on 12/11/2024 17:47:42
[2024-12-11 16:25] VITALS: BP 157/71; PULSE 78; RESP 18; TEMP 36.4; O2SAT 100; BMI 40.2
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
[2024-12-11 17:14] LABS: HCG Quantitative < 2 mIU/mL
[2024-12-11 20:06] VITALS: BP 180/86; PULSE 69; RESP 18; TEMP 36.9; O2SAT 100
[2024-12-11 20:17] VITALS: BP 180/86; PULSE 69; RESP 18; TEMP 36.9; O2SAT 100
== END 2024-12-11 20:19 | disposition home or self-care (01) ==
PROVIDERS: Emergency Provider Physician Assistant Medical
DX: S00.83XA Contusion of other part of head, initial encounter (principal); R51.9 Headache, unspecified; R10.2 Pelvic and perineal pain; Y29.XXXA Contact with blunt object, undetermined intent, initial encounter; Y93.9 Activity, unspecified; Y92.9 Unspecified place or not applicable; Y99.0 Civilian activity done for income or pay
CPT/HCPCS: 36415; 70486; 84702; 99282; 99284

== ENCOUNTER → 2024-12-11 16:26 | Outpatient (BNV) | payer OTHER, SELFPAY | PROVIDERS: Visit Provider Radiology Diagnostic Radiology | DX: S09.93XA Unspecified injury of face, initial encounter (principal) | CPT/HCPCS: 70486 ==

== ENCOUNTER 2025-01-30 08:47 | Emergency (ER) | payer OTHER, SELFPAY ==
--- NOTE | ~2025-01-30 | US_ITS ---
CLINICAL HISTORY: pain, swelling Bilateral lower extremity duplex venous Doppler Comparison: None Technique: Grayscale/Color/Duplex Doppler sonographic evaluation of the deep venous system within both lower extremities. Findings: Right lower extremity Common femoral vein: Patent CFV/GSV junction: Patent Femoral vein: Patent Popliteal vein: Patent Infrapopliteal veins: Patent where seen Soft tissue: No focal abnormality Left lower extremity Common femoral vein: Patent CFV/GSV junction: Patent Femoral vein: Patent Popliteal vein: Patent Infrapopliteal veins: Patent where seen Soft tissues: No focal abnormality Impression: 1. Negative for bilateral lower extremity DVT 2. No Charles's cyst This document has been electronically signed by: Justino Goode MD on 01/30/2025 09:54:57
--- NOTE | ~2025-01-30 | XR_ITS ---
CLINICAL HISTORY: pain 1 view chest x-ray. Comparison: CR/SR - XR CHEST 1V - 06/11/23 01:45 EDT Findings: Normal lung volumes. Lungs are clear. No pneumothorax or pleural effusion. Heart size normal. No passive venous congestion. No midline shift or tracheal deviation. No acute fracture. Impression: 1. No acute cardiopulmonary disease. This document has been electronically signed by: Justino Goode MD on 01/30/2025 10:39:45
--- NOTE | 2025-01-30 08:49 | ECG_ITS ---
Test Reason : chest pain Blood Pressure : */* mmHG Vent. Rate : 78 BPM Atrial Rate : 78 BPM P-R Int : 158 ms QRS Dur : 96 ms QT Int : 374 ms P-R-T Axes : 57 30 40 degrees QTcB Int : 426 ms Normal sinus rhythm Normal ECG When compared with ECG of 10-Jun-2023 21:26, No significant change was found Referred By: Generic ED Physician Electronically Signed By: Cameron Pierre
[2025-01-30 08:56] VITALS: BP 145/85; PULSE 70; RESP 18; TEMP 36; O2SAT 98; BMI 40.2
--- NOTE | 2025-01-30 09:01 | ED_ITS ---
HPI - Chest Pain General Chief Complaint: Chest Pain Stated Complaint: Chest pain, high bood pressure Time Seen by Provider: 01/30/25 09:01 Source: patient and old records reviewed Mode of arrival: ambulatory Limitations: no limitations History of Present Illness ED Provider: MARGIE MENDEZ narrative: 44 yo female with PMH of headaches, chronic back pain, anxiety, asthma, remote provoked PE several years ago here with c/o noticing L sided chest pain that is intermittent brought on by touching chest and deep breaths. No recent URI , travel or procedures. She has mild nausea and feels short of breath. She notes a recent cramp in her R calf as well. She feels cold sweats when it happens. She has no prior known CAD. She has been healthy otherwise MD complaint: chest pain Onset (ago): hour(s) (5am today) Timing of current episode: episodic Prior episodes: No Onset: during rest Pain location: left chest Pain radiation: none Severity: moderate Quality: sharp Relieving factors: nothing Exacerbating factors: inspiration and palpation Associated symptoms: nausea, diaphoresis and dyspnea Treatment prior to arrival: none Related Data Previous Rx's ?Medication ?Instructions ?Recorded dexamethasone 4 mg tablet 4 mg PO DAILY #5 tabs 10/25/20 (Decadron) hydrocodone 5 mg-acetaminophen 300 1 tab PO Q4-6H PRN pain #5 tabs 10/25/20 mg tablet methocarbamol 750 mg tablet 750 mg PO Q8H #10 tabs 10/25/20 (Robaxin-750) acetaminophen 500 mg tablet 1,000 mg (2 x 500 mg) PO QID PRN 11/22/20 (Tylenol Extra Strength) fever or pain #14 tabs oxycodone 5 mg tablet 5 mg PO BID PRN pain #10 tabs 11/22/20 prednisone 20 mg tablet 40 mg (2 x 20 mg) PO DAILY rash 5 11/22/20 days #10 tabs clindamycin HCl 300 mg capsule 300 mg PO Q6H 5 days #20 caps 08/12/22 cyclobenzaprine 10 mg tablet 10 mg PO TID PRN muscle spasm #20 01/30/25 tabs Allergies Allergy/AdvReac Type Severity Reaction Status Date / Time aspirin [Aspirin] Allergy Unknown HIVES, Verified 01/30/25 09:04 swollen throat penicillin V Allergy Unknown swollen Verified 01/30/25 09:04 throat Penicillins Allergy Unknown BREATHING Verified 01/30/25 09:04 PROBLEM SEAFOOD Allergy Unknown ANAPHYLAXIS Uncoded 07/07/20 15:23 Shrimp Flavor Allergy Unknown Unknown Uncoded 10/25/20 10:59 Review of Systems 2 Review of Systems: Constitutional : No Weight loss, No Fever, No Chills ENT/Mouth : No sore throat, No Rhinorrhea Eyes: No Eye Pain, No Swelling Cardiovascular : pos Chest Pain, pos SOB, no Dyspnea on Exertion, No Orthopnea, No Edema, No Palpitations Respiratory : No Cough, No Sputum Gastrointestinal : pos Nausea, No Vomiting, No Diarrhea, No abdominal Pain, No Hematochezia, No Melena Genitourinary : No Dysuria, No Urinary Frequency Musculoskeletal : No joint pain, No Myalgias, No Joint Swelling, pos calf pain Skin : No Skin Lesions, No rash Neuro : No Weakness, No Numbness, No Dizziness, No Headache Psych : No Anxiety/Panic, No Depression Heme/Lymph: No Bruising, No Lymphadenopathy Endocrine : No Polyuria, No Polydipsia All other systems reviewed and are negative [facility] Past Medical History Attestation statement: The following information was validated with the patient. Source: old records reviewed Medical History Heart murmur Asthma Surgical History History of carpal tunnel surgery Social History Social History (Updated 01/30/25 @ 09:02 by Eden Campos DO) Alcohol intake: never Patient Tobacco Use Status: Never used Tobacco Smoked in Last 30 Days: No Use of substances other than those prescribed or required for medical reasons: No Advance Directives: No Advance Directives Information Provided: No Do you have a plan to hurt others: No Plan Physical Exam 2 Vital Signs: Vital Signs: Last Vital Signs Temp 97.9 F 01/30/25 11:14 Pulse 67 01/30/25 11:14 Resp 19 01/30/25 11:14 BP 175/89 H 01/30/25 11:14 Pulse Ox 97 01/30/25 11:14 O2 Del Method Room Air 01/30/25 11:14 BMI result Body Mass Index 40.2 Appearance: Alert. Oriented X3. No acute distress. Eyes: Pupils equal, round and reactive to light. ENT: Pharynx normal. Neck: Normal inspection. Neck supple. CVS: Normal heart rate and rhythm. Pulses normal. Chest wall: anterior chest wall L sided ttp Respiratory: No respiratory distress. Breath sounds normal. Abdomen: Soft and nontender. Skin: Skin warm and dry. Normal skin color. Normal skin turgor. Extremities: No lower extremity edema. No calf ttp Neuro: Oriented X 3. No motor deficit. No sensory deficit. CN2-12 intact Medications Administered Discontinued Medications Generic Name Dose Route Start Last Admin Trade Name Alem PRN Reason Stop Dose Admin Acetaminophen 975 mg 01/30/25 11:14 01/30/25 11:19 Acetaminophen 325 Mg Tablet PO 01/30/25 11:15 975 mg ONCE ONE Administration Medical Decision Making Medical Decision Making [facility] Narrative: 44 yo female with PMH of headaches, chronic back pain, anxiety, asthma, remote provoked PE several years ago here with c/o chest pain that is reproduceable but with sweats, dyspnea, nausea and recent R leg cramp - she has no risk factors for VTE other than prior provoked VTE will need ddimer and US. She also c/o atypical chest pain but no known ACS will obtain trop, EKG and chest xray. Will likely repeat and obtain delta trop. Differential Diagnosis Differential Diagnoses: The differential diagnosis associated with the presentation includes chest wall pain, low prob VTE, atypical for ACS Admission/Observation Consideration of admission/observation: Escalation of care including admission/observation considered EKG, DVT work up, VTE work up and 2 troponins are negative at this time no concerning features stable for DC Lab Data [facility] Lab Attestation statement: I reviewed the patient's lab results. 01/30/25 09:24 01/30/25 09:24 Labs: Lab Results 01/30/25 01/30/25 Range/Units 09:24 11:30 WBC 6.5 (4.8-10.8) X10*3/uL RBC 3.88 L (4.20-5.50) X10*6/uL Hgb 8.7 L (12.0-16.0) g/dl Hct 27.7 L (37.0-47.0) % MCV 71.4 L (80.0-98.0) fL MCH 22.4 L (27.0-33.0) pg MCHC 31.4 (31.0-35.0) g/dl RDW 16.8 H (11.0-16.0) % Plt Count 310 (160-400) X10*3/uL MPV 8.4 L (9.4-12.3) fL Immature Gran % (Auto) 0.3 (0.0-0.4) % Neut % (Auto) 50.6 (45-73) % Lymph % (Auto) 39.2 (20-40) % Menard % (Auto) 7.4 (2-11) % Eos % (Auto) 2.2 (0-4) % Baso % (Auto) 0.3 (0-2) % Lymph # (Auto) 2.6 (1.2-4.9) X10*3/uL Menard # (Auto) 0.5 (0.1-1.2) X10*3/uL Eos # (Auto) 0.1 (0.0-0.4) X10*3/uL Baso # (Auto) 0.0 (0.0-0.2) X10*3/uL Abs Immat Gran (auto) 0.02 (0.00-0.03) X10*3/uL Absolute Neuts (auto) 3.3 (2.0-8.3) x10*3/uL Absolute Nucleated RBC 0.000 (0.0-0.012) X10*3/uL Nucleated RBC % (auto) 0.0 (0.0-0.2) /100WBC D-Dimer High Sensitivty 181 NG/ML Sodium 139 (135-145) mmol/L Potassium 3.4 (3.3-5.1) mmol/L Chloride 107 (96-108) mmol/L Carbon Dioxide 23 (22-29) mmol/L Anion Gap 12 (12-20) BUN 10 (9-16) mg/dL Creatinine 0.76 (0.5-1.4) mg/dL Estim Creat Clear Calc 104.3 Estimated GFR > 60 Random Glucose 95 (60-115) mg/dL Calcium 8.9 (8.4-10.2) mg/dL Magnesium 1.9 (1.6-2.6) mg/dL Total Bilirubin 0.3 (0.0-1.0) mg/dL Direct Bilirubin 0.1 (0.0-0.5) mg/dL AST 24 (5-31) U/L ALT 22 (0-31) U/L Alkaline Phosphatase 75 (39-117) U/L Troponin I High Sens < 2.7 < 2.7 (<3.5-17.0) ng/L B-Natriuretic Peptide 49 (<100) pg/mL Total Protein 7.2 (6.5-8.0) g/dL Albumin 3.9 (3.5-5.0) g/dL Lipase 25 (8-78) U/L Independent Interpretation I performed an independent interpretation of an: EKG, Plain X-Ray (normal ) and Ultrasound (no DVT) Interpretation: Rate: 78 Rhythm: NSR Tolley: normal Normal P waves. Normal MARIVEL. Normal QRS complex. ST T wave : no SARA, normal qTC: 426 prior studies: no acute ischemia The study has been interpreted contemporaneously by me. . Radiology Impression Discussion of test interpretation with radiology: I have reviewed the radiologist's reading. External Record Review External record reviewed: Outpatient record Discharge Plan Discharge Clinical Impression: Atypical chest pain Patient Disposition: Home, Self-Care Instructions: Chest Pain (ED) Additional Instructions: at this time negative study for blood clot in legs and ddimer for blood clot test negative EKG, chest xray and repeat heart tests in blood are normal return for worsening symptoms or concerns. hemoglobin 8.7 which has been your baseline Prescriptions: New cyclobenzaprine 10 mg tablet 10 mg PO TID PRN (Reason: muscle spasm) Qty: 20 0RF No Action dexamethasone [Decadron] 4 mg tablet 4 mg PO DAILY Qty: 5 0RF methocarbamol [Robaxin-750] 750 mg tablet 750 mg PO Q8H Qty: 10 0RF hydrocodone-acetaminophen 5-300 mg tablet 1 tab PO Q4-6H PRN (Reason: pain) Qty: 5 0RF acetaminophen [Tylenol Extra Strength] 500 mg tablet 1,000 mg PO QID PRN (Reason: fever or pain) Qty: 14 0RF prednisone 20 mg tablet 40 mg PO DAILY 5 Days Qty: 10 0RF oxycodone 5 mg tablet 5 mg PO BID PRN (Reason: pain) Qty: 10 0RF clindamycin HCl 300 mg capsule 300 mg PO Q6H 5 Days Qty: 20 0RF Stand Alone Forms: Work/School Release Print Language: Romanian
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
--- OUTSIDE RECORDS SUMMARY | 2025-01-30 09:18 | XMS_ITS | Encounter Summary ---
Author Organization [facility] Address [facility] [place] [address] Care Team Providers Care Typesetting Machine Tender Name Role Phone Stormy Browne MD Primary Care Provider Unavail able Sachi Salinas MD Primary Care Provider + Naveen Cruz Primary Care Provider [phone] Encounter Details Date Type Department Care Team Description 11/09/2019 Refill Adult Medicine [address] [address] Fadia Loza PA-C Social History Tobacco Use Types Packs/Day Years Used Date Smoking Tobacco: Never Smokeless Tobacco: Never Alcohol Use Standard Drinks/Week Comments No 0 (1 standard drink = 0.6 oz pur e alcohol) Sex Assigned at Date Recorded Female 03/05/2024 12:18 PM EDT Job Start Date Occupation Industry Not on file Not on file Not on file documented as of this encounter Miscellaneous Notes * Telephone Encounter - Christelle Reyes M.A. - 11/11/2019 3:58 PM EST Lab Results Component Value Date NA 142 03/22/2018 K 4.1 03/22/2018 CO2 28.4 03/22/2018 CL 104 03/22/2018 BUN 15 03/22/2018 CREAT 0.8 03/22/2018 CA 10.0 03/22/2018 GFR > 60 03/22/2018 KATHYA 08/14/19 documented in this encounter Plan of Treatment Not on file documented as of this encounter Visit Diagnoses Not on filedocumented in this encounter Care Teams Typesetting Machine Tender Relationship Specialty Start Date End Date Stormy Browne MD PCP - General Internal Medicine 03/22/18 03/28/22 Sachi Salinas MD [address] [place] [address] [phone] PCP - General Internal Medicine 05/07/22 Naveen Cruz [address] [place] [address] [phone] PCP - General Internal Medicine 05/01/22 05/06/22 documented as of this encounter
--- OUTSIDE RECORDS SUMMARY | 2025-01-30 09:18 | XMS_ITS | Encounter Summary ---
Author Organization [facility] Address [address] [place] [address] Care Team Providers Care Welder Explosion Name Role Phone Stormy Browne MD Primary Care Provider Unavail able Sachi Salinas MD Primary Care Provider + Naveen Cruz Primary Care Provider [phone] Encounter Details Date Type Department Care Team Description 05/26/2020 Refill OBGYN - [place] [address] [place] [address] [phone] Aubrey Higginbotham MD [address] [place] [address] Social History Tobacco Use Types Packs/Day Years Used Date Smoking Tobacco: Never Smokeless Tobacco: Never Alcohol Use Standard Drinks/Week Comments No 0 (1 standard drink = 0.6 oz pur e alcohol) Sex Assigned at Date Recorded Female 03/05/2024 12:18 PM EDT Job Start Date Occupation Industry Not on file Not on file Not on file documented as of this encounter Plan of Treatment Not on file documented as of this encounter Visit Diagnoses Not on filedocumented in this encounter Care Teams Welder Explosion Relationship Specialty Start Date End Date Stormy Browne MD PCP - General Internal Medicine 03/22/18 03/28/22 Sachi Salinas MD [address] [place] [address] [phone] PCP - General Internal Medicine 05/07/22 Naveen Cruz [address] [place] [id number] PCP - General Internal Medicine 05/01/22 05/06/22 documented as of this encounter
--- OUTSIDE RECORDS SUMMARY | 2025-01-30 09:18 | XMS_ITS | Encounter Summary ---
Author Organization [facility] Address [facility] [place] [address] Care Team Providers Care Bat Carrier Name Role Phone Rebecca Clarke DO Primary Care Pro vider Unavailable Stormy Browne MD Primary Care Provider Unavail able Sachi Salinas MD Primary Care Provider + Naveen Cruz Primary Care Provider [phone] Encounter Details Date Type Department Care Team Description 05/28/2017 [facility] Medical Records [address] [place] [address] Social History Tobacco Use Types Packs/Day Years [...] on file documented as of this encounter Procedures Procedure Name Priority Date/Time Associated Diagnosis Comments OUTSIDE EKG Routine 05/28/2017 OUTSIDE PLAIN FILM Routine 05/28/2017 documented in this encounter Results * OUTSIDE PLAIN FILM (05/28/2017) Provider Default RADIOLOGY * OUTSIDE EKG (05/28/2017) Provider Default CARDIOLOGY documented in this encounter Visit Diagnoses Not on filedocumented in this encounter Care Teams Bat Carrier Relationship Specialty Start Date End Date Rebecca Clarke DO PCP - General Internal Medicine 08/12/15 03/21/18 Stormy Browne MD PCP - General Internal Medicine 03/22/18 03/28/22 Sachi Salinas MD [address] [place] [address] [phone] PCP - General Internal Medicine 05/07/22 Naveen Cruz [address] [place] [address] [phone] PCP - General Internal Medicine 05/01/22 05/06/22 documented as of this encounter
--- OUTSIDE RECORDS SUMMARY | 2025-01-30 09:19 | XMS_ITS | Encounter Summary ---
Author Organization [facility] Address [facility] [place] [address] Care Team Providers Care Dermatologist Name Role Phone Sachi Salinas MD Primary Care Provider + Reason for Visit * Reason Onset Date Comments My Chart Appointment 03/26/2024 Review for appriote booking Encounter Details Date Type Department Care Team Description 03/26/2024 Telephone Adult Medicine [facility] [address] [place] [id number] Sachi Salinas MD [address] [place] [id number] My Chart Appointment (Review for appriote booking) Social History Tobacco Use Types Packs/Day Years [...] encounter Miscellaneous Notes * Telephone Encounter - Oriana Oliver R.N. - 03/27/2024 8:06 AM EDT Number listed is restricted/not available Unable to triage I attempted to call patient, unable to reach her * Telephone Encounter - JADA Gilbert - 03/27/2024 7:[address] Johnson patient booked a physical exam appointment via [employer] on my schedule with encounter note that states my blood pressure being high and a lot pain in arms and legs and be have weird pain on chest . Please triage. If appropriate for outpatient visit this cannot be completed with a physical exam. She will need to be seen for sick complaint only with physical exam postponed when she is feeling well. * Telephone Encounter - Oriana Oliver R.N. - 03/26/2024 12:09 PM EDT Called number listed - unable to reach patient, number disconnected or not in service * Telephone Encounter - Stormy Reyes - 03/26/2024 11:56 AM EDT [email or web address] and high bp in February. Please review booking if pt ok to be seen in office. documented in this encounter Plan of Treatment Not on file documented as of this encounter Visit Diagnoses Not on filedocumented in this encounter Care Teams Dermatologist Relationship Specialty Start Date End Date Sachi Salinas MD [address] [place] [id number] PCP - General Internal Medicine 05/07/22 documented as of this encounter
--- OUTSIDE RECORDS SUMMARY | 2025-01-30 09:19 | XMS_ITS | Data Portability ---
Author Organization JADA Aldana [facility] [address] Address [address] [place] [address] Care Team Providers Care Student Counsellor Name Role Phone [facility] Family Medicine Assessment No assessment recorded. Plan of Treatment Reminders Order Date Submit Date Provider Last Modified By Organization Details Last Modified Time Details Appointments None recorded. Lab None recorded. Referral None recorded. Procedures None recorded. Surgeries None recorded. Imaging None recorded. Medication Orders ibuprofen 800 mg tablet 2022 023 [facility][id number], [address] [facility] [place], [address], 19:53:28 Patient TargetsNo targets recorded. Patient Instructions Encounter Date Encounter Id Patient Instructions Last Modified By Organization Details Last Modified Time 03/24/2023 [id number] Your symptoms ar e consistent with a strain of the muscles and or tendons in your forearm from overuse / minor trauma. There is very little concern for bony injury or need for xray at this time. We expect with conservatinve treatment such as ice rest and anti inflammatory meds it should improve within a few weeks. Follow up wieth your PCP or an orthopedic provider as needed. [email or web address] Not available 03/24/2023 19:54:59 Reason for Referral None Reported. Problems Name Problem SNOMED Code Status Onset Date Resolution Date Notes Provider Name and Address Organization Details Recorded Time Chronic back pain 840247487 Active 023 JADA Perry [facility] 18:15:37 Asthma 451040446 Active 023 JADA Perry [facility] 06/04/202 3 18:15:43 Anxiety 39145121 Active 023 Eveline Sharifa null, PA - [facility] 3 18:15:49 Depressive disorder 33415073 Active 023 Eveline Sharifa null, PA - [facility] 3 18:15:55 Problem Notes None recorded. Medical Equipment None Reported. Allergies Allergen ID Allergen Name Allergen Category Reaction Reaction Severity Criticality Documentation Date Start Date Code Code System Note Provider Name and Address Organization Details Recorded Time 691849 Product containin g penicilli n (product) medicatio n hives Not available Not available 03/24/2023 54055 8001 SNOMED Eveline Allen null, PA - [facility] 3 18:14:56 Medications Name Sig Start Date Stop Date Status Note LastModified by Organization Details LastModified Time clindamycin HCl 300 mg capsule TAKE 1 CAP ORALLY EVERY 6 HOURS FOR 5 DAYS 03/24 completed Not Available Not Available Not Available ibuprofen 800 mg tablet Take 1 tablet 3 times a day by oral route for 10 days. 2022 active Not Available Not Available Not Avai lable lidocaine 5 % topical patch APPLY 1 PATCH ONTO THE SKIN EVERY 24 HOURS; APPLY FOR NO MORE THAN 12 HOURS IN ANY 24 HOUR PERIOD. active Not Available Not Available No t Available lisinopril 5 mg tablet TAKE 1 TABLET BY MOUTH DAILY. active Not Available Not Available No t Available Vitamin D2 1,250 mcg (50,000 unit) capsule TAKE 1 CAPSULE BY MOUTH ONCE A WEEK active Not Available Not Available No t Available duloxetine 60 mg capsule,giacomo yed release TAKE ONE CAPSULE BY MOUTH EVERY DAY active Not Available Not Available No t Available ProAir HFA 90 mcg/actuatio n aerosol inhaler INHALE TWO PUFFS BY MOUTH FOUR TIMES A DAY NEEDED FOR COUGH OR WHEEZING . active Not Available Not Available No t Available Vitals Date Recorded Body height Pain severity - 0-10 verbal numeric rating [Score] - Reported Respiratory rate Oxygen saturation Oxygen saturation in Arterial blood by Pulse oximetry Heart rate Body temperature Body mass index (BMI) Body weight Systolic blood pressure Diastolic blood pressure Provider Name and Address Organization Details Last Updated DateTime 3 157.48 cm 8 20 /min 100 % 100 % 65 /min 97.9 [degF] 39.1 kg/m2 37152.7 7 g 155 mm[Hg] 87 mm[Hg] Eveline Allen PA - [facility] 18:17:43 Social History Question Answer Notes LastModified by Organizat ion Details LastModified Time Tobacco Smoking Status Never Smoker Eveline Sharifa null, PA - [facility] 03/24/2023 18:16:04 What Is Your Level Of Alcohol Consumption? None Information not available 03/24/2023 Have You Had Direct Contact, Or Contact During Intimacy, With Monkeypox Rash, Scabs, Or Body Fluids From A Person With Monkeypox? No Information not available 03/24/2023 Do You Use Any Illicit Or Recreational Drugs? No Information not available 03/24/2023 Have You Recently Traveled Abroad? No Information not available 03/24/2023 Do You Or Have You Ever Used Any Other Forms Of Tobacco Or Nicotine? No Information not available 03/24/2023 Sex: Unknown Functional Status None recorded. Mental Status None recorded. Family History Relationship Description Onset Age of this Age Resolved Age Notes LastModified by Organization Details LastModified Time Father No current problems or disability Not available 03/24 18:15:56 Mother No current problems or disability Not available 03/24 18:15:56 Medical History No medical history recorded. Gynecological History Statement/Question Response Date of LMP 03/24/2023 Is there any chance of ? No LMP Approximate Obstetrics History GPAL:G 0 P 0 0 0 0 Immunizations Vaccine Type Date Status Note Provider Nam e and Address Organization Details Recorded Time Influenza, MDCK, quadrivalent, PF 9 completed Eveline Sharifa null, PA - [facility] 03/24/2023 18:14:47 Influenza, MDCK, quadrivalent, PF 1 completed Eveline Sharifa null, PA - [facility] 03/24/2023 18:14:47 Influenza, MDCK, quadrivalent, preservative 8 completed Eveline Sharifa null, PA - [facility] 03/24/2023 18:14:47 COVID-19, mRNA, LNP-S, PF, 30 mcg/0.3 mL dose 1 completed Eveline Allen null, PA - [facility] 03/24/2023 18:14:47 COVID-19, mRNA, LNP-S, PF, 30 mcg/0.3 mL dose 1 completed Eveline Sharifa null, PA - [facility] 03/24/2023 18:14:47 Tdap 0 completed Eveline Allen null, PA - [facility] 03/24/2023 18:14:47 Tdap 8 completed Eveline Allen null, PA - [facility] 03/24/2023 18:14:47 Td (adult), 5 Lf tetanus toxoid, preservative free, adsorbed 4 completed Eveline Sharifa null, PA - [facility] 03/24/2023 18:14:47 Hep B, adult 0 completed Eveline Allen null, PA - [facility] 03/24/2023 18:14:47 Hep A, adult 6 completed Eveline Allen null, PA - [facility] 03/24/2023 18:14:47 Past Encounters Encounter ID Performer Location Encounter Start Date Encounter Closed Date Diagnosis/Indication Diagnosis SNOMED-CT Code Diagnosis ICD10 Code Diagnosis Note [id number] [address] [place] [address] 07/05/2020 14:57:39 07/05/2020 16:33:45 [id number] JADA Rosario [address] [place] [address] 03/24/2023 16:58:09 03/24/2023 19:55:29 Strain of muscle and/or tendon of forearm 725327104 S56.912A Health Concerns Section Related Observation LastModified by Organization Detai ls LastModified Time None Recorded Concern Status LastModified by Organization Details LastModified Time None Recorded Advance Directives Directive None Recorded Payers Encounter Date Sequence Insurance Name Policy Number Policy Perdomo Covered Member ID Perdomo Member ID Guarantor Name 07/05/2020 1 [facility] (MEDICAID REPLACEMENT - HMO) YOLA Reynolds [id number] Fabiola Reynolds 03/24/2023 1 [facility] (MEDICAID REPLACEMENT - HMO) YOLA Reynolds [id number] Fabiola Reynolds Notes Date Note Type Note Provider Name and Address Organization Details Recorded Time 03/24/20 23 text/htm l Upper Arm Elbow Injury UCReported bypatient.source of patient informationInformation obtained from patient; Patient arrived at Urgent Care ambulatory Hand Dominance:right Location:left Quality:aching; throbbing; dull Severity:moderate Duration:1 days Context:lifting; overuse Alleviating Factors:rest Aggravating Factors:twisting; bending; grasping Associated Symptoms:swelling;ecchymos is JADA Gutierrez [facility] [place], [address], PA - [facility] 03/24/2023 19:55:10 OBGyn Episode No OBEpisode recorded.
--- OUTSIDE RECORDS SUMMARY | 2025-01-30 09:19 | XMS_ITS | Encounter Summary ---
Author Organization [facility] Address [address] [place] [address] Care Team Providers Care [employer] Volleyball Coach Name Role Phone Stormy Browne MD Primary Care Provider Unavail able Sachi Salinas MD Primary Care Provider + Naveen Cruz Primary Care Provider [phone] Encounter Details Date Type Department Care Team Description 11/29/2019 Release of Information Medical Records [address] [place] [id number] Abstract, Provider Social History Tobacco Use Types Packs/Day Years [...] on filedocumented in this encounter Care Teams [employer] Volleyball Coach Relationship Specialty Start Date End Date Stormy Browne MD PCP - General Internal Medicine 03/22/18 03/28/22 Sachi Salinas MD [address] [place] [address] PCP - General Internal Medicine 05/07/22 Naveen Cruz [address] [place] [id number] PCP - General Internal Medicine 05/01/22 05/06/22 documented as of this encounter
--- OUTSIDE RECORDS SUMMARY | 2025-01-30 09:19 | XMS_ITS | Clinical Summary ---
Author Organization [address] Address [address] [place] [phone] Phone Care Team Providers Care Chemistry Account Manager Name Role Phone Sachi Salinas MD Primary Care Pr ovider Allergies Active Allergy Reactions Criticality Noted Date Comments Aspirin Hives 08/18/2015 Takes Naprosyn for headaches Penicillins Hives 08/18/2015 Shrimp 12/25/2016 Medications albuterol HFA (PROAIR HFA ; PROVENTIL HFA ; VENTOLIN HFA) 90 mcg/actuation inhaler Inhale 2 Puffs into the lungs 4 times daily as needed for Cough or Wheezing. 2 Active cholecalciferol (Dialyvite Vitamin D3 Max) 1,250 mcg (50,000 unit) tablet Take 1 Tablet by mouth every 7 days. 4 Active cyanocobalamin (VITAMIN B-12) 2,000 mcg tablet Take 1 tablet by mouth daily. 1 Active ferrous sulfate 325 mg (65 mg iron) EC tablet Take 1 Tablet by mouth daily. 4 Active FLUoxetine (PROzac) 20 mg tablet Take 1 Tablet by mouth daily. 4 Active hydrocortisone 1 % topical cream Apply to affected area when clean and dry sparingly twice daily for the next 2 weeks. 1 Active ketoconazole (NIZORAL) 2 % cream Apply to affected skin on the left foot daily for 4 weeks. 0 Active lidocaine (LIDODERM) 5 % patch Place 1 Patch onto the skin every 24 hours. Apply for no more than 12 hours in any 24 hour period. 2 Active loratadine (CLARITIN) 10 mg tablet Take 1 Tablet by mouth daily. 2 Active Active Problems Problem Noted Date Diagnosed Date Menorrhagia with regular cycle 05/06/2024 HTN (hypertension) 05/01/2022 Iron deficiency anemia 07/24/2021 Vitamin D deficiency 11/09/2019 Arthritis, lumbar spine 05/21/2019 Overview (08/27/2024): S/p MRI 04/2018 mild. CTS (carpal tunnel syndrome) 05/21/2019 Overview (08/27/2024): Mild; right s/p NCS PSS Severe obesity (BMI 35.0-39. 9) with comorbidity (CMS/HCC V24, CMS/HCC V28) 07/31/2018 Venous insufficiency of both lower extremities 1 Anxiety and depression 07/01/2018 DDD (degenerative disc disease), lumbar 07/01/20 18 Multiple thyroid nodules 07/01/2018 Overview (08/27/2024): No h/o FNA, repeat US pending. Last US 01/2016 Allergic rhinitis due to pollen 03/22/2018 Costochondritis 06/01/2017 Overview (08/27/2024): 05/28/17; [facility] Asthma 08/18/2015 Migraine without aura and wi thout status migrainosus, not intractable 08/18/2015 Encounters Date Type Department Care Team Description 01/25/2025 Nurse Triage Adult Medicine [address] [phone] Rosy Rivera MA Hypertension 12/23/2024 Telephone Adult Medicine [address] [phone] Kathy Bradford MA call back from Last 3 Months Immunizations Name Administration Dates Next Due Hepatitis A Adult (Havrix; Vaqta) 19yo and older 01/08/2006 Hepatitis B (Bgvbmgv-N-Iwvtk , Recombivax HB-Adult) 19yo and older 01/27/2010 Influenza Quadravalent, MDCK , 0.5ml, preservative free (Flucelvax) 6mo and older 07/10/2021,07/09/2019 Influenza Quadravalent, MDCK , 0.5ml, with preservative (Flucelvax) 6mo and older 07/31/2018 PPD Test 09/07/2015 Amura SARS-CoV-2 COVID-19, mRNA, LNP-S, preservative free 06/28/2021 Td Tetanus diptheria (Tdvax) 7yo and older 11/03 Tdap Tetanus diptheria acell ular pertussis (Boostrix; Adacel) 7yo and older 07/31/2018,11/30/2009 Surgical History Surgery Date Site/Laterality Comments CHOLECYSTECTOMY PROCEDURE: HISTORICAL CHOLECYSTECTOMY; COMMENT: at age 19 APPENDECTOMY PROCEDURE: HISTORICAL APPENDECTOMY; COMMENT: at age 19 TUBAL LIGATION PROCEDURE: HISTORICAL TUBAL LIGATION; COMMENT: at age 26 CARPAL TUNNEL RELEASE 2019 Right PROCEDURE: AL NEUROPLASTY &/TRANSPOS MEDIAN NRV CARPAL TUNNE; COMMENT: [facility] Medical History Medical History Date Comments Morbid obesity (CMS/HCC V24, CMS/HCC V28) 07/31/2018 DX:Morbid obesity (HCC) Multiple thyroid nodules 07/01/2018 DX:Mult iple thyroid nodules; COMMENT: No h/o FNA, repeat US pending. Last US 01/2016 Migraine without aura and wi thout status migrainosus, not intractable 08/18/2015 DX:Migraine withou t aura and without status migrainosus, not intractable DDD (degenerative disc disea se), lumbar 07/01/2018 DX:DDD (degenerative disc di sease), lumbar Costochondritis 06/01/2017 DX:Costochondrit is; COMMENT: 05/28/17; [facility] 08/18/2015 DX:Asthma Anxiety and depression 07/01/2018 DX:Anxiet y and depression Allergic rhinitis due to pollen 03/22/2018 DX:Allergic rhinitis due to pollen Venous insufficiency of both lower extremities 07/31/2018 DX:Venous insufficiency of b oth lower extremities CTS (carpal tunnel syndrome) 05/21/2019 DX: CTS (carpal tunnel syndrome); COMMENT: Mild; right s/p NCS PSS Arthritis, lumbar spine 05/21/2019 DX:Arthr itis, lumbar spine; COMMENT: S/p MRI 04/2018 mild. HTN (hypertension) 05/01/2022 DX:HTN (hyper tension) Family History Medical History Relation Name Comments Colon cancer Aunt 1 Maternal Heart attack Aunt 1 Maternal Breast cancer Aunt 2 Maternal Ovarian cancer Aunt 2 Maternal Other: murder Brother Arthritis Father htn Heart attack Maternal Grandmother Arthritis Mother Asthma Mother Diabetes Mother Hyperlipidemia Mother prediabetes, htn Ovarian cancer Mother Heart attack Paternal Grandmother seizure disorder, htn Other: seizure Sister has one kidne y as a transplant Ovarian cancer Sister Blindness Neg Hx Cataracts Neg Hx Glaucoma Neg Hx Macular degeneration Neg Hx Strabismus Neg Hx Uterine cancer Neg Hx Relation Name Status Comments Aunt 1 Maternal Other Aunt 2 Maternal Brother Father Alive Maternal Grandmother Mother Alive Paternal Grandmother Sister Alive Social History Tobacco Use Types Packs/Day Years Used Date Smoking Tobacco: Never Smokeless Tobacco: Never Alcohol Use Standard Drinks/Week Comments No 0 (1 standard drink = 0.6 oz pur e alcohol) Comments Unknown Sex and Gender Information Value Date Recorded Sex Assigned at Not on file Legal Sex Female 4:35 AM EST Gender Identity Not on file Sexual Orientation Not on file Obstetrics History Last Filed Vital Signs Vital Sign Reading Time Taken Comments Blood Pressure 150/92 07/07/2024 3:34 PM EDT Pulse 64 07/07/2024 2:10 PM EDT Temperature - - Respiratory Rate - - Oxygen Saturation - - Inhaled Oxygen Concentration - - Weight 103 kg (228 lb) 07/07/2024 2:10 PM EDT Height 157.5 cm (5' 2 ) 07/07/2024 2:10 PM EDT Body Mass Index 41.7 07/07/2024 2:10 PM EDT Plan of Treatment Upcoming Encounters Date Type Department Care Team (Late st Contact Info) Description 03/16/2025 4:10 PM EDT Appointment Radiology Department [address] [phone] Health Maintenance Due Date Last Done Comments Breast Cancer Screening 1980 Pneumococcal Vaccine: Pediatrics (0 to 5 Years) and At-Risk Patients (6 to 64 Years) (1 of 2 - PCV) 1999 Hepatitis B Vaccines (2 of 3 - 19+ 3-dose series) 02/24/2010 01/27/2010 COVID-19 Vaccine (2 - Pfizer risk series) 07/19/2021 06/28/2021 Social Influencers of Health Screening 09/29/2022 Hypertension/CHF/CAD Annual BMP Blood Test 05/01/2023 05/01/2022 Influenza Vaccine (Season Ended) 2025 07/10/2021, 07/09/2019, 07/31/2018 Depression Screening 07/07/2025 07/07/2024 Cholesterol Screening (Lipid Panel) 05/01/2027 05/01/2022 DTaP,Tdap,and Td Vaccines (4 - Td or Tdap) 07/31/2028 07/31/2018, 11/03/2013, 11/30/2009 Cervical Cancer Screening: HPV 07/07/2029 07/07/2024 Hepatitis A Vaccines Aged Out 01/08/2006 No long er eligible based on patient's age to complete this topic HIV Screening Completed 07/07/2024, 07/07/2024 Hepatitis C Screening Completed 07/07/2024 HIB Vaccines Aged Out No longer eligi ble based on patient's age to complete this topic HPV Vaccines Aged Out No longer eligi ble based on patient's age to complete this topic IPV Vaccines Aged Out No longer eligi ble based on patient's age to complete this topic MMR Vaccines Aged Out No longer eligi ble based on patient's age to complete this topic Meningococcal ACWY Vaccine Aged Out N o longer eligible based on patient's age to complete this topic Meningococcal B Vaccine Aged Out No l onger eligible based on patient's age to complete this topic RSV Immunization Patients Under 20 months Aged Out No longer eligible b ased on patient's age to complete this topic Varicella Vaccines Aged Out No longer eligible based on patient's age to complete this topic Procedures Procedure Name Priority Date/Time Associated Diagnosis Comments HPV Routine 07/07/2024 HEPATITIS C SCREENING Routine 07/07/2024 HIV SCREENING Routine 07/07/2024 DEPRESSION SCREENING Routine 07/07/2024 ANNUAL BMP BLOOD TEST Routine 05/01/2022 LIPID PANEL Routine 05/01/2022 from Last 3 Months or Most Recently Relevant to Health Maintenance Results * Cervical Cancer Screening: HPV (07/07/2024) [facility] Cervical Cancer Screening: HPV Abstracted, Negative [facility] Provider HEALTH MAINTENANCE Final Result * Depression Screening (07/07/2024) [facility] Depression Screening Abstracted [facility] Provider HEALTH MAINTENANCE Final Result * HIV Screening (07/07/2024) [facility] HIV Screening Abstracted Result [facility] Provider HEALTH MAINTENANCE Final Result * Hepatitis C Screening (07/07/2024) [facility] Hepatitis C Screening Abstracted Result [facility] Provider HEALTH MAINTENANCE Final Result * Annual BMP Blood Test (05/01/2022) [facility] Annual BMP Blood Test Abstracted Result [facility] Provider HEALTH MAINTENANCE Final Result * Lipid panel (05/01/2022) [facility] LDL/HDL Ratio 2 0 - 4 Triglycerides 93 0 - 150 mg/dL Cholesterol 147 0 - 200 mg/dL HDL 63 >=40 mg/dL LDL Cholesterol 66 0 - 100 mg/dL Blood Venous blood specimen / Unknown Result [facility] Provider LAB BLOOD ORDERABLES [place] [facility] Result from Last 3 Months or Most Recently Relevant to Health Maintenance Insurance [facility] [employer] [facility] Care Teams Chemistry Account Manager Relationship Specialty Start Date End Date Sachi Salinas MD [address] [facility], [place] PCP - General Internal Medicine 05/07/22
--- OUTSIDE RECORDS SUMMARY | 2025-01-30 09:19 | XMS_ITS | Clinical Summary ---
Author Organization [facility] Address [address] [place] [address] Care Team Providers Care Manager Application Name Role Phone Sachi Salinas MD Primary Care Provider + Allergies Active Allergy Reactions Severity Noted Date Comments Aspirin Hives/Urticaria 08/18/2015 Takes Naprosyn for headaches Penicillins Hives/Urticaria 08/18/2015 Shrimp 12/25/2016 Medications Medication Sig Dispensed Refills Start Date End Date Status ketoconazole (NIZORAL) 2 % cream Apply to affected skin on the left foot daily for 4 weeks. 15 g 0 08/02/2020 Active Cyanocobalamin (B-12) 2000 MCG Tab Take 1 tablet by mouth daily. 30 tablet 5 07/10/2021 Active hydrocortisone 1 % cream Apply to affected area when clean and dry sparingly twice daily for the next 2 weeks. 30 g 0 07/10/2021 Active ALBUTEROL SULFATE (ProAir HFA) 108 (90 Base) MCG/ACT Aero Soln Inhale 2 Puffs into the lungs 4 times daily as needed for Cough or Wheezing. 8.5 g 0 03/30/2022 Active lidocaine (LIDODERM) 5 % Place 1 Patch onto the skin every 24 hours. Apply for no more than 12 hours in any 24 hour period. 28 Patch 0 03/30/2022 Active loratadine (Claritin) 10 MG tablet Take 1 Tablet by mouth daily. 30 Tablet 0 03/30/2022 Active fluoxetine (PROZAC) 20 MG tablet Take 1 Tablet by mouth daily. 90 Tablet 0 05/06/2024 Active Cholecalciferol (Vitamin D3) 1.25 MG (51487 UT) Tab Take 1 Tablet by mouth every 7 days. 12 Tablet 0 05/07/2024 Active Ferrous Sulfate 324 (65 Fe) MG Tab EC Take 1 Tablet by mouth daily. 90 Tablet 1 05/07/2024 Active Active Problems Problem Noted Date Menorrhagia with regular cycle 4 Family history of breast cancer 05/06/20 24 Overview: 06/2024- Negative genetic testing. 6.1% Cecile Luz lifetime breast cancer risk Family history of ovarian cancer 024 HTN (hypertension) 05/01/2022 Iron deficiency anemia 07/24/2021 Vitamin D deficiency 11/09/2019 CTS (carpal tunnel syndrome) 05/21/2019 Overview: Mild; right s/p NCS PSS Arthritis, lumbar spine 05/21/2019 Overview: S/p MRI 04/2018 mild. Severe obesity (BMI 35.0-39.9) with lady rbidity 07/31/2018 Venous insufficiency of both lower extre mities 07/31/2018 DDD (degenerative disc disease), lumbar 07/01/2018 Anxiety and depression 07/01/2018 Multiple thyroid nodules 07/01/2018 Overview: No h/o FNA, repeat US pending. Last US 01/2016 Allergic rhinitis due to pollen 03/22/20 18 Costochondritis 06/01/2017 Overview: 05/28/17; [facility] Migraine without aura and without status migrainosus, not intractable 08/18/2015 Asthma 08/18/2015 Resolved Problems Problem Noted Date Resolved Date Chronic foot pain 07/01/2018 07/31/2018 Chronic pain syndrome 07/01/2018 07/31/2018 History of DVT (deep vein thrombosis) 06/01/2017 07/31/2018 Overview: Provoked by long car ride , 2013 Obesity, Class II, BMI 35-39.9 06/01/2017 1 Thyromegaly 11/18/2015 07/01/2018 Anxiety 08/18/2015 07/31/2018 Immunizations Name Administration Dates Next Due COVID-19 (Pfizer) Pt Reported 06/28/2021 Hepatitis B (Generic) 01/27/2010 Hepatitis-A (>19YRS) 01/08/2006 Influenza Vaccine-preservati ve Free-quadrivalent 4 Years 07/10/2021,07/09/2019 Influenza Vaccine-quadrivalent 4 Years Plus 07/21 PPD-RBMG 09/07/2015 TD (STATE SUPPLIED FOR ADULTS AND CHILDREN) 10/21 Tdap 07/31/2018,11/30/2009 Family History Medical History Relation Name Comments CA Colon Aunt 1 Maternal AL Aunt 1 Maternal CA Breast Aunt 2 Maternal CA Ovarian Aunt 2 Maternal murder Brother Arthritis Father htn AL Maternal Grandmother Arthritis Mother Asthma Mother CA Ovarian Mother Cholesterol Level Mother prediabete s, htn Diabetes Mother AL Paternal Grandmother seizure disorder, htn CA Ovarian Sister seizure Sister has one kidney as a transplant Blindness Negative Hx Cataract Negative Hx Glaucoma Negative Hx Macular Degeneration Negative Hx Strabismus Negative Hx Uterine Cancer Negative Hx Relation Name Status Comments Aunt 1 Maternal Other Aunt 2 Maternal Brother Father Alive Maternal Grandmother Mother Alive Paternal Grandmother Sister Alive Social History Tobacco Use Types Packs/Day Years Used Date Smoking Tobacco: Never Smokeless Tobacco: Never Tobacco Cessation:Counseling Given: Not Answered Alcohol Use Standard Drinks/Week Comments No 0 (1 standard drink = 0.6 oz pur e alcohol) Sex Assigned at Date Recorded Female 03/05/2024 12:18 PM EDT Job Start Date Occupation Industry Not on file Not on file Not on file Last Filed Vital Signs Vital Sign Reading Time Taken Comments Blood Pressure 150/92 07/07/2024 3:34 PM EDT Pulse 64 07/07/2024 2:10 PM EDT Temperature 36.2 ??C (97.2 ??F) 05/06/2024 10:57 AM E DT Respiratory Rate 14 07/07/2024 2:10 PM EDT Oxygen Saturation 99% 03/27/2024 10:49 AM EDT Inhaled Oxygen Concentration - - Weight 103.4 kg (228 lb) 07/07/2024 2:10 PM EDT Height 157.5 cm (5' 2 ) 07/07/2024 2:10 PM EDT Body Mass Index 41.7 07/07/2024 2:10 PM EDT Plan of Treatment Health Maintenance Due Date Last Done Comments PNEUMOCOCCAL VACCINE FOR HIG H RISK PATIENTS (#1) 1999 MAMMOGRAM 2020 Covid-19 Vaccine (2 2 4 season) 2024 06/28/2021 BMI CHECK/ADVISE 10/21/2024 07/07/2024, , 03/27/2024, Additional history exists DEPRESSION SCREENING/FOLLOWUP 10/21/2024, 05/06/2024, 05/06/2024, Additional history exists SOCIAL NEEDS SCREENING 10/21/2024 4, 07/10/2021 (Completed), 12/09/2019 (Completed), Additional history exists INFLUENZA (Season Ended) 2025 021, 07/09/2019, 07/09/2019, Additional history exists BASELINE HEALTH EXAM 40-64 05/06/202605/06, 05/06/2024, 07/10/2021, Additional history exists CHOLESTEROL SCREENING 05/01/2027 05/01/2022 , 07/19/2021, 11/18/2015 CERVICAL CANCER SCREENING 07/07/2027 07/07/2024, DTAP/TDAP/TD (4 - Td or Tdap) 07/31/2028, 07/31/2018, 11/03/2013, Additional history exists Care Teams Manager Application Relationship Specialty Start Date End Date Sachi Salinas MD [address] [place] [address] [id number] PCP - General Internal Medicine 05/07/22
--- OUTSIDE RECORDS SUMMARY | 2025-01-30 09:19 | XMS_ITS | Clinical Summary ---
Author Organization [facility] Address [address] [place] [address] Care Team Providers Care International Banker Name Role Phone Unavailable Primary Care Provider Unavailabl e Allergies Active Allergy Reactions Criticality Noted Date Comments Aspirin 10/02/2021 Medications Medication Sig Dispensed Refills Start Date End Date Status vitamin D3 (CHOLECALCIFEROL) 1.25 MG (32075 UT) CAPS capsule Take 50,000 Units by mouth every 7 days. 0 Active lisinopril (PRINIVIL,ZESTRIL) tablet 5 mg Take 5 mg by mouth daily. 0 Active cyanocobalamin 2000 MCG tablet Take 2,000 mcg by mouth daily. 0 Active DULoxetine (CYMBALTA) DR capsule 20 mg Take 20 mg by mouth daily. 0 Active ferrous sulfate 325 (65 FE) MG tablet Take 325 mg by mouth every morning with breakfast. 0 Active lidocaine (LIDODERM) 5 % Place 1 patch onto the skin daily. Remove & Discard patch within 12 hours or as directed by MD 0 Active loratadine (CLARITIN) 10 MG tablet Take 10 mg by mouth daily. 0 Active sertraline (ZOLOFT) 25 MG tablet Take 25 mg by mouth daily. 0 Active hydrocortisone 1 % cream Apply topically 2 (two) times a day. 0 Active ketoconazole (NIZORAL) 2 % cream Apply topically daily. 0 Active Albuterol Sulfate 108 (90 Base) MCG/ACT AEPB Inhale into the lungs. 0 Active Active Problems Problem Noted Date Diagnosed Date Iron deficiency anemia due to chronic blood loss 10/02/2021 Social History Tobacco Use Types Packs/Day Years Used Date Smoking Tobacco: Never Assessed Sex and Gender Information Value Date Recorded Sex Assigned at Not on file Gender Identity Not on file Sexual Orientation Not on file Last Filed Vital Signs Vital Sign Reading Time Taken Comments Blood Pressure 145/80 10/16/2021 9:19 AM EST Pulse 62 10/16/2021 9:19 AM EST Temperature 36.4 ??C (97.5 ??F) 10/16/2021 9:19 AM ES T Respiratory Rate - - Oxygen Saturation 100% 10/16/2021 9:19 AM EST Inhaled Oxygen Concentration - - Weight 99.3 kg (219 lb) 10/16/2021 9:19 AM EST Height 159 cm (5' 2.6 ) 10/02/2021 10:50 AM EST Body Mass Index 39.29 10/02/2021 10:50 AM EST Plan of Treatment Health Maintenance Due Date Last Done Comments Hepatitis B Vaccines (1 of 3 - 3-dose series) 1980 Hepatitis C Screening 1980 Depression Screening 1992 Preventative Health Evaluation 1998 Cervical Cancer Screening (Pap Smear) 2001 COVID-19 Vaccine (2 - 4-2 5 season) 2024 06/28/2021 Influenza Vaccine (#1) 2024 , 07/09/2019, 07/31/2018 DTap / Tdap / Td (2 - Td or Tdap) 07/31/2028 07/31/2018 Pneumococcal Vaccine Aged Out No long er eligible based on patient's age to complete this topic RSV Ped < 20 months Aged Out No longe r eligible based on patient's age to complete this topic
--- OUTSIDE RECORDS SUMMARY | 2025-01-30 09:19 | XMS_ITS | Encounter Summary ---
Author Organization [facility] Address [address] [place] [address] Care Team Providers Care Artificial Cherry Maker Name Role Phone Stormy Browne MD Primary Care Provider Unavail able Sachi Salinas MD Primary Care Provider + Naveen Cruz Primary Care Provider [phone] Encounter Details Date Type Department Care Team Description 01/14/2019 Release of Information Medical Records [address] [place] [id number] Abstract, Provider Social History Tobacco Use Types [...] on filedocumented in this encounter Care Teams Artificial Cherry Maker Relationship Specialty Start Date End Date Stormy Browne MD PCP - General Internal Medicine 03/22/18 03/28/22 Sachi Salinas MD [address] [place] [address] PCP - General Internal Medicine 05/07/22 Naveen Cruz [address] [place] [id number] PCP - General Internal Medicine 05/01/22 05/06/22 documented as of this encounter
--- OUTSIDE RECORDS SUMMARY | 2025-01-30 09:19 | XMS_ITS | Encounter Summary ---
Author Organization [facility] Address [address] [place] [address] Care Team Providers Care Radiation / Chemistry Technician Name Role Phone Stormy Browne MD Primary Care Provider Unavail able Sachi Salinas MD Primary Care Provider + Naveen Cruz Primary Care Provider [phone] Reason for Visit * Reason Onset Date Comments medication problems 08/02/2020 Encounter Details Date Type Department Care Team Description 08/02/2020 Telephone Adult Medicine - [address] [address] Stormy Browne MD medication problems Social History Tobacco Use Types Packs/Day Years [...] encounter Miscellaneous Notes * Telephone Encounter - Elsa Fisher M.A. - 08/02/2020 4:14 PM EDT Pharmacist Beka boggs okay to fill vitamin b12 extended release * Telephone Encounter - Stormy Browne MD - 08/02/2020 4:07 PM EDT It looks like the Relafen was discontinued please have patient schedule follow- up to discuss the medication Okay to fill B12 * Telephone Encounter - Elsa Fisher M.A. - 08/02/2020 4:05 PM EDT Contacted the pharmacy spoke with Beka solisumetone is not on pt med list they needed an okay to fill vitamin b12 extended release, please advise * Telephone Encounter - Nathalia Gottlieb - 08/02/2020 3:39 PM EDT Who is calling? A pharmacist: Pharmacy: [facility] Pharmacist Name: [facility] Name of the medication nabumetone (RELAFEN) 500 MG tablet What is the specific problem or interaction? Rquesting clarification on med. If the patient is having a problem with taking the med - how long has the problem been going on? N/A documented in this encounter Plan of Treatment Not on file documented as of this encounter Visit Diagnoses Not on filedocumented in this encounter Care Teams Radiation / Chemistry Technician Relationship Specialty Start Date End Date Stormy Browne MD PCP - General Internal Medicine 03/22/18 03/28/22 Sachi Salinas MD [address] [place] [id number] PCP - General Internal Medicine 05/07/22 Naveen Cruz [address] [place] [id number] PCP - General Internal Medicine 05/01/22 05/06/22 documented as of this encounter
--- OUTSIDE RECORDS SUMMARY | 2025-01-30 09:19 | XMS_ITS | Encounter Summary ---
Author Organization [facility] Address [address] [place] [address] Care Team Providers Care Subcontract Administrator Name Role Phone Stormy Browne MD Primary Care Provider Unavail able Sachi Salinas MD Primary Care Provider + Naveen Cruz Primary Care Provider [phone] Encounter Details Date Type Department Care Team Description 12/13/2020 Old Medical Records Medical Records [address] [place] [address] Abstract, Provider Social History Tobacco Use Types [...] on filedocumented in this encounter Care Teams Subcontract Administrator Relationship Specialty Start Date End Date Stormy Browne MD PCP - General Internal Medicine 03/22/18 03/28/22 Sachi Salinas MD [address], [place] [phone] PCP - General Internal Medicine 05/07/22 Naveen Cruz [address] [place] [address] PCP - General Internal Medicine 05/01/22 05/06/22 documented as of this encounter
[2025-01-30 09:30] LABS: MANUAL DIFF FLAG NO
[2025-01-30 09:31] LABS: Basophils Percent Auto 0.3 % (0-2); Eosinophils Absolute Auto 0.1 X10*3/uL (0.0-0.4); Eosinophils Percent Auto 2.2 % (0-4); Hematocrit 27.7 % (37.0-47.0); Hemoglobin 8.7 g/dl (12.0-16.0); Imm Gran Abs Auto 0.02 X10*3/uL (0.00-0.03); Imm Gran Pct Auto 0.3 % (0.0-0.4); Lymphocytes Absolute Auto 2.6 X10*3/uL (1.2-4.9); Lymphocytes Percent Auto 39.2 % (20-40); Mean Corpuscular HGB Conc 31.4 g/dl (31.0-35.0); Mean Corpuscular Hemoglobin 22.4 pg (27.0-33.0); Mean Corpuscular Volume 71.4 fL (80.0-98.0); Mean Platelet Volume 8.4 fL (9.4-12.3); Monocytes Absolute Auto 0.5 X10*3/uL (0.1-1.2); Monocytes Percent Auto 7.4 % (2-11); Neutrophils Absolute Auto 3.3 x10*3/uL (2.0-8.3); Neutrophils Percent Auto 50.6 % (45-73); Platelet Count 310 X10*3/uL (160-400); Red Blood Count 3.88 X10*6/uL (4.20-5.50); Red Cell Distribution Width 16.8 % (11.0-16.0); White Blood Count 6.5 X10*3/uL (4.8-10.8)
[2025-01-30 09:38] LABS: D Dimer High Sensitivity 181 NG/ML
[2025-01-30 09:52] LABS: B Type Natriuretic Peptide 49 pg/mL (<100)
[2025-01-30 09:53] LABS: Alanine Aminotransferase 22 U/L (0-31); Albumin Level 3.9 g/dL (3.5-5.0); Alkaline Phosphatase 75 U/L (39-117); Anion Gap 12 (12-20); Aspartate Amino Transferase 24 U/L (5-31); Bilirubin Direct 0.1 mg/dL (0.0-0.5); Bilirubin Total 0.3 mg/dL (0.0-1.0); Blood Urea Nitrogen 10 mg/dL (9-16); Calcium 8.9 mg/dL (8.4-10.2); Carbon Dioxide 23 mmol/L (22-29); Chloride 107 mmol/L (96-108); Creatinine Clr Calc Pharmacy 104.3; Estimated Glomerular Filt Rate > 60; Glucose Random 95 mg/dL (60-115); Lipase 25 U/L (8-78); Magnesium 1.9 mg/dL (1.6-2.6); Potassium 3.4 mmol/L (3.3-5.1); Sodium 139 mmol/L (135-145); Total Protein 7.2 g/dL (6.5-8.0)
[2025-01-30 10:13] LABS: Troponin-I High Sensitivity < 2.7 ng/L (<3.5-17.0)
[2025-01-30 11:14] VITALS: BP 175/89; PULSE 67; RESP 19; TEMP 36.6; O2SAT 97
[2025-01-30 11:19] VITALS: PULSE 61
[2025-01-30] MEDS: Acetaminophen 325 MG TABLET 975 MG PO (11:19)
[2025-01-30 12:01] LABS: Troponin-I High Sensitivity < 2.7 ng/L (<3.5-17.0)
[2025-01-30 12:13] VITALS: BP 175/89; PULSE 67; RESP 19; TEMP 36.6; O2SAT 97
== END 2025-01-30 12:16 | disposition home or self-care (01) ==
PROVIDERS: Emergency Provider Emergency Medicine
DX: R07.89 Other chest pain (principal); M54.50 Low back pain, unspecified; F41.9 Anxiety disorder, unspecified; R60.0 Localized edema; R11.0 Nausea; R06.02 Shortness of breath; Z79.899 Other long term (current) drug therapy
CPT/HCPCS: 36415; 71045; 80048; 80076; 83690; 83735; 83880; 84484; 85025; 85379; 93005; 93970; 99284; 99285

== ENCOUNTER → 2025-01-30 08:49 | Outpatient (BNV) | payer OTHER, SELFPAY | PROVIDERS: Emergency Provider Emergency Medicine; Visit Provider Internal Medicine Cardiovascular Disease | DX: R07.9 Chest pain, unspecified (principal) | CPT/HCPCS: 93010 ==

== ENCOUNTER → 2025-01-30 09:10 | Outpatient (BNV) | payer OTHER, SELFPAY | PROVIDERS: Emergency Provider Emergency Medicine; Visit Provider Radiology Diagnostic Radiology | DX: R60.0 Localized edema (principal); M79.606 Pain in leg, unspecified; R07.9 Chest pain, unspecified | CPT/HCPCS: 71045; 93970 ==

== ENCOUNTER 2025-02-09 19:34 | Emergency (ER) | payer OTHER, SELFPAY ==
--- NOTE | 2025-02-09 19:37 | ECG_ITS ---
Test Reason : HP Blood Pressure : */* mmHG Vent. Rate : 73 BPM Atrial Rate : 73 BPM P-R Int : 152 ms QRS Dur : 86 ms QT Int : 396 ms P-R-T Axes : 50 31 37 degrees QTcB Int : 436 ms Normal sinus rhythm Normal ECG When compared with ECG of 30-Jan-2025 08:50, No significant change was found Referred By: Shabbir Espinal Electronically Signed By: NI IBARRA
[2025-02-09 20:21] VITALS: BP 215/87; PULSE 70; RESP 16; TEMP 36.9; O2SAT 100; BMI 41.0
--- NOTE | 2025-02-09 20:29 | ED_ITS ---
HPI - General Adult General Chief complaint: Dental/Oral Stated complaint: rt side face pain/chest pain too Time Seen by Provider: 02/09/25 22:04 Related Data Previous Rx's ?Medication ?Instructions ?Recorded dexamethasone 4 mg tablet 4 mg PO DAILY #5 tabs 10/25/20 (Decadron) hydrocodone 5 mg-acetaminophen 300 1 tab PO Q4-6H PRN pain #5 tabs 10/25/20 mg tablet methocarbamol 750 mg tablet 750 mg PO Q8H #10 tabs 10/25/20 (Robaxin-750) acetaminophen 500 mg tablet 1,000 mg (2 x 500 mg) PO QID PRN 11/22/20 (Tylenol Extra Strength) fever or pain #14 tabs oxycodone 5 mg tablet 5 mg PO BID PRN pain #10 tabs 11/22/20 prednisone 20 mg tablet 40 mg (2 x 20 mg) PO DAILY rash 5 11/22/20 days #10 tabs clindamycin HCl 300 mg capsule 300 mg PO Q6H 5 days #20 caps 08/12/22 cyclobenzaprine 10 mg tablet 10 mg PO TID PRN muscle spasm #20 01/30/25 tabs clindamycin HCl 300 mg capsule 300 mg PO Q6H #20 caps 02/09/25 Allergies Allergy/AdvReac Type Severity Reaction Status Date / Time aspirin [Aspirin] Allergy Unknown HIVES, Verified 02/09/25 20:24 swollen throat penicillin V Allergy Unknown swollen Verified 02/09/25 20:24 throat Penicillins Allergy Unknown BREATHING Verified 02/09/25 20:24 PROBLEM SEAFOOD Allergy Unknown ANAPHYLAXIS Uncoded 02/09/25 20:24 Shrimp Flavor Allergy Unknown Unknown Uncoded 02/09/25 20:24 [facility] Past Medical History Medical History Heart murmur Asthma Surgical History History of carpal tunnel surgery Social History Social History (Updated 01/30/25 @ 09:02 by Eden Campos DO) Alcohol intake: never Patient Tobacco Use Status: Never used Tobacco Smoked in Last 30 Days: No Use of substances other than those prescribed or required for medical reasons: No Advance Directives: No Advance Directives Information Provided: No Do you have a plan to hurt others: No Plan Patient : No Physical Exam ED Vital Signs: Vital Signs - 24 hr 02/09/25 20:21 02/09/25 21:30 Temperature 98.5 F 98.3 F Pulse Rate 70 79 Respiratory Rate 16 24 H Blood Pressure 215/87 H 173/90 H Pulse Oximetry 100 98 Oxygen Delivery Method Room Air Room Air BMI result Body Mass Index 41.0 Course Course Course Narrative: RME: [age] year female presents to ED right-sided jaw pain without any trauma for the past couple of days. Physical exam negative for any facial swelling but positive for right lower molar tooth belching with some pus collection. Negative for any gum swelling or trismus. Patient's blood pressure found to be 215/87. Patient has history of high blood pressure for primary care provider took her off meds. Patient brought back to the ED immediately for EKG labs. Patient stating chest pain. Medical Decision Making Lab Data 02/09/25 20:44 02/09/25 20:44 Labs: Lab Results 02/09/25 Range/Units 20:44 WBC 8.9 (4.8-10.8) X10*3/uL RBC 4.20 (4.20-5.50) X10*6/uL Hgb 9.6 L (12.0-16.0) g/dl Hct 30.2 L (37.0-47.0) % MCV 71.9 L (80.0-98.0) fL MCH 22.9 L (27.0-33.0) pg MCHC 31.8 (31.0-35.0) g/dl RDW 16.9 H (11.0-16.0) % Plt Count 370 (160-400) X10*3/uL MPV 8.6 L (9.4-12.3) fL Immature Gran % (Auto) 0.2 (0.0-0.4) % Neut % (Auto) 47.6 (45-73) % Lymph % (Auto) 41.8 H (20-40) % Donley % (Auto) 8.0 (2-11) % Eos % (Auto) 2.1 (0-4) % Baso % (Auto) 0.3 (0-2) % Lymph # (Auto) 3.7 (1.2-4.9) X10*3/uL Donley # (Auto) 0.7 (0.1-1.2) X10*3/uL Eos # (Auto) 0.2 (0.0-0.4) X10*3/uL Baso # (Auto) 0.0 (0.0-0.2) X10*3/uL Abs Immat Gran (auto) 0.02 (0.00-0.03) X10*3/uL Absolute Neuts (auto) 4.2 (2.0-8.3) x10*3/uL Absolute Nucleated RBC 0.000 (0.0-0.012) X10*3/uL Nucleated RBC % (auto) 0.0 (0.0-0.2) /100WBC PT 11.0 (10.9-12.4) SEC INR 0.9 (0.9-1.1) APTT 31.2 (26.0-36.8) SEC Sodium 140 (135-145) mmol/L Potassium 3.8 (3.3-5.1) mmol/L Chloride 105 (96-108) mmol/L Carbon Dioxide 26 (22-29) mmol/L Anion Gap 13 (12-20) BUN 7 L (9-16) mg/dL Creatinine 0.80 (0.5-1.4) mg/dL Estim Creat Clear Calc 100.2 Estimated GFR > 60 Random Glucose 98 (60-115) mg/dL Calcium 9.3 (8.4-10.2) mg/dL Total Bilirubin 0.2 (0.0-1.0) mg/dL AST 30 (5-31) U/L ALT 28 (0-31) U/L Alkaline Phosphatase 82 (39-117) U/L Troponin I High Sens < 2.7 (<3.5-17.0) ng/L B-Natriuretic Peptide 33 (<100) pg/mL Total Protein 8.1 H (6.5-8.0) g/dL Albumin 4.3 (3.5-5.0) g/dL Beta HCG, Quant < 2 mIU/mL Discharge Plan Discharge Clinical Impression: Pain, dental, Dental cavity Patient Disposition: Home, Self-Care Instructions: Toothache (ED) Additional Instructions: Please follow-up with your dentist later today Prescriptions: New clindamycin HCl 300 mg capsule 300 mg PO Q6H Qty: 20 0RF No Action dexamethasone [Decadron] 4 mg tablet 4 mg PO DAILY Qty: 5 0RF methocarbamol [Robaxin-750] 750 mg tablet 750 mg PO Q8H Qty: 10 0RF hydrocodone-acetaminophen 5-300 mg tablet 1 tab PO Q4-6H PRN (Reason: pain) Qty: 5 0RF acetaminophen [Tylenol Extra Strength] 500 mg tablet 1,000 mg PO QID PRN (Reason: fever or pain) Qty: 14 0RF prednisone 20 mg tablet 40 mg PO DAILY 5 Days Qty: 10 0RF oxycodone 5 mg tablet 5 mg PO BID PRN (Reason: pain) Qty: 10 0RF clindamycin HCl 300 mg capsule 300 mg PO Q6H 5 Days Qty: 20 0RF cyclobenzaprine 10 mg tablet 10 mg PO TID PRN (Reason: muscle spasm) Qty: 20 0RF Referrals: Physician,Unknown J [Primary Care Provider] - (Please follow-up with your dentist tomorrow) Print Language: Upper Sorbian
--- NOTE | 2025-02-09 20:41 | ECG_ITS ---
Test Reason : chest pain Blood Pressure : */* mmHG Vent. Rate : 70 BPM Atrial Rate : 70 BPM P-R Int : 154 ms QRS Dur : 98 ms QT Int : 398 ms P-R-T Axes : 51 28 47 degrees QTcB Int : 429 ms Normal sinus rhythm Normal ECG When compared with ECG of 09-Feb-2025 20:33, No significant change was found Referred By: Cristina Brooks Electronically Signed By: NI IBARRA
[2025-02-09 20:48] LABS: MANUAL DIFF FLAG NO
[2025-02-09 20:50] LABS: Basophils Percent Auto 0.3 % (0-2); Eosinophils Absolute Auto 0.2 X10*3/uL (0.0-0.4); Eosinophils Percent Auto 2.1 % (0-4); Hematocrit 30.2 % (37.0-47.0); Hemoglobin 9.6 g/dl (12.0-16.0); Imm Gran Abs Auto 0.02 X10*3/uL (0.00-0.03); Imm Gran Pct Auto 0.2 % (0.0-0.4); Lymphocytes Absolute Auto 3.7 X10*3/uL (1.2-4.9); Lymphocytes Percent Auto 41.8 % (20-40); Mean Corpuscular HGB Conc 31.8 g/dl (31.0-35.0); Mean Corpuscular Hemoglobin 22.9 pg (27.0-33.0); Mean Corpuscular Volume 71.9 fL (80.0-98.0); Mean Platelet Volume 8.6 fL (9.4-12.3); Monocytes Absolute Auto 0.7 X10*3/uL (0.1-1.2); Neutrophils Absolute Auto 4.2 x10*3/uL (2.0-8.3); Neutrophils Percent Auto 47.6 % (45-73); Platelet Count 370 X10*3/uL (160-400); Red Cell Distribution Width 16.9 % (11.0-16.0); White Blood Count 8.9 X10*3/uL (4.8-10.8)
[2025-02-09 20:57] LABS: INTERNATIONAL NORM RATIO 0.9 (0.9-1.1)
[2025-02-09 21:00] LABS: Partial Thromboplastin Time 31.2 SEC (26.0-36.8)
[2025-02-09 21:04] LABS: Alanine Aminotransferase 28 U/L (0-31); Albumin Level 4.3 g/dL (3.5-5.0); Alkaline Phosphatase 82 U/L (39-117); Anion Gap 13 (12-20); Aspartate Amino Transferase 30 U/L (5-31); Bilirubin Total 0.2 mg/dL (0.0-1.0); Blood Urea Nitrogen 7 mg/dL (9-16); Calcium 9.3 mg/dL (8.4-10.2); Carbon Dioxide 26 mmol/L (22-29); Chloride 105 mmol/L (96-108); Creatinine Clr Calc Pharmacy 100.2; Estimated Glomerular Filt Rate > 60; Glucose Random 98 mg/dL (60-115); Potassium 3.8 mmol/L (3.3-5.1); Sodium 140 mmol/L (135-145); Total Protein 8.1 g/dL (6.5-8.0)
[2025-02-09 21:10] LABS: B Type Natriuretic Peptide 33 pg/mL (<100)
[2025-02-09 21:14] LABS: Troponin-I High Sensitivity < 2.7 ng/L (<3.5-17.0)
[2025-02-09 21:30] VITALS: BP 173/90; PULSE 79; RESP 24; TEMP 36.8; O2SAT 98
--- NOTE | 2025-02-09 22:20 | ED_ITS ---
HPI - Dental/Oral General Chief complaint: Dental/Oral Stated complaint: rt side face pain/chest pain too Time Seen by Provider: 02/09/25 22:04 History of Present Illness HPI Narrative: Patient is a 44-year-old female presented today with having right-sided jaw pain that is been ongoing for about a week. Patient has been calling for an appointment with her dentist came for help. Patient denies any difficulty swallowing. No difficulty with her voice. Took some Tylenol with only moderate relief. She was noted to have an elevated blood pressure to me she has no chest pain she has no diaphoresis she had an EKG done at triage. Patient was brought back for evaluation the initial blood pressure was fairly extreme at 215/87. Patient has a history of hypertension but is not taking any medication. Teeth map: 2 1. Infected inner molar no abscess palpable 2. Related Data Previous Rx's ?Medication ?Instructions ?Recorded dexamethasone 4 mg tablet 4 mg PO DAILY #5 tabs 10/25/20 (Decadron) hydrocodone 5 mg-acetaminophen 300 1 tab PO Q4-6H PRN pain #5 tabs 10/25/20 mg tablet methocarbamol 750 mg tablet 750 mg PO Q8H #10 tabs 10/25/20 (Robaxin-750) acetaminophen 500 mg tablet 1,000 mg (2 x 500 mg) PO QID PRN 11/22/20 (Tylenol Extra Strength) fever or pain #14 tabs oxycodone 5 mg tablet 5 mg PO BID PRN pain #10 tabs 11/22/20 prednisone 20 mg tablet 40 mg (2 x 20 mg) PO DAILY rash 5 11/22/20 days #10 tabs clindamycin HCl 300 mg capsule 300 mg PO Q6H 5 days #20 caps 08/12/22 cyclobenzaprine 10 mg tablet 10 mg PO TID PRN muscle spasm #20 01/30/25 tabs clindamycin HCl 300 mg capsule 300 mg PO Q6H #20 caps 02/09/25 Allergies Allergy/AdvReac Type Severity Reaction Status Date / Time aspirin [Aspirin] Allergy Unknown HIVES, Verified 02/09/25 20:24 swollen throat penicillin V Allergy Unknown swollen Verified 02/09/25 20:24 throat Penicillins Allergy Unknown BREATHING Verified 02/09/25 20:24 PROBLEM SEAFOOD Allergy Unknown ANAPHYLAXIS Uncoded 04/22/25 20:24 Shrimp Flavor Allergy Unknown Unknown Uncoded 02/09/25 20:24 Review of Systems 2 Review of Systems: No fever no chills no chest pain Yes all other systems are reviewed and are negative [facility] Past Medical History Attestation statement: The following information was validated with the patient. Medical History Heart murmur Asthma Surgical History History of carpal tunnel surgery Social History Social History (Updated 01/30/25 @ 09:02 by Eden Campos DO) Alcohol intake: never Patient Tobacco Use Status: Never used Tobacco Smoked in Last 30 Days: No Use of substances other than those prescribed or required for medical reasons: No Advance Directives: No Advance Directives Information Provided: No Do you have a plan to hurt others: No Plan Patient : No Physical Exam 2 Vital Signs: Vital Signs: Last Vital Signs Temp 98.3 F 02/09/25 21:30 Pulse 79 02/09/25 21:30 Resp 24 H 02/09/25 21:30 BP 173/90 H 02/09/25 21:30 Pulse Ox 98 02/09/25 21:30 O2 Del Method Room Air 02/09/25 21:30 BMI result Body Mass Index 41.0 Appearance: Alert. Oriented X3. No acute distress. Eyes: Pupils equal, round and reactive to light. ENT: Pharynx normal. Positive infected upper inner molar. There is no abscess palpable. Tonsils are nonenlarged. Posterior pharynx is normal. There is no tenderness on palpation of the floor of the mouth. Neck: Normal inspection. Neck supple. No lymph nodes noted. No crepitus CVS: Normal heart rate and rhythm. Pulses normal. Normal S1 and S2 Respiratory: No respiratory distress. Breath sounds normal. No Wheezing. No rales Abdomen: Soft and nontender. No rigidity. No distention. good BS x4 Skin: Skin warm and dry. Normal skin color. Normal skin turgor. Extremities: No lower extremity edema. Neurovascular intact to all extremities. No Lacerations. No Rash Neuro: Oriented X 3. No motor deficit. No sensory deficit. Moving all extermities. No slurred speech Medical Decision Making Medical Decision Making MDM Narrative: Likely infected upper molar. Will start antibiotics. We obtained labs. Patient's white count is normal. Patient is hemoglobin is 9.6. This is approximately baseline. Patient is electrolytes are normal. LFTs normal troponin is negative. Will check patient's status start patient on antibiotics. Patient is blood pressure in the emergency department on recheck was 173/90. Will monitor carefully. test is negative. My interpretation of patient's EKG showed a sinus rhythm heart rate was 80 ID QRS QTC normal no acute ST segment elevation patient's white count is normal. No signs of peritonsillar abscess. There is no gross abscess that was palpable patient's floor of the mouth was soft there is no signs of Viktor's angina patient's BNP is normal troponin is negative test is negative no evidence for related issue. EKG is normal. Blood pressure elevated explained to patient the need to be closely monitored and require outpatient workup. Patient's has a dental cavity which will require dental help. Explained to patient the need for follow-up closely. Will start antibiotics Motrin for pain. Differential Diagnosis Differential Diagnoses: The differential diagnosis associated with the presentation includes Dental cavity, peritonsillar abscess, Viktor's angina, dental abscess Admission/Observation Consideration of admission/observation: Escalation of care including admission/observation considered Lab Data MDM Lab Attestation statement: I reviewed the patient's lab results. 02/09/25 20:44 02/09/25 20:44 Labs: Lab Results 02/09/25 Range/Units 20:44 WBC 8.9 (4.8-10.8) X10*3/uL RBC 4.20 (4.20-5.50) X10*6/uL Hgb 9.6 L (12.0-16.0) g/dl Hct 30.2 L (37.0-47.0) % MCV 71.9 L (80.0-98.0) fL MCH 22.9 L (27.0-33.0) pg MCHC 31.8 (31.0-35.0) g/dl RDW 16.9 H (11.0-16.0) % Plt Count 370 (160-400) X10*3/uL MPV 8.6 L (9.4-12.3) fL Immature Gran % (Auto) 0.2 (0.0-0.4) % Neut % (Auto) 47.6 (45-73) % Lymph % (Auto) 41.8 H (20-40) % [place] % (Auto) 8.0 (2-11) % Eos % (Auto) 2.1 (0-4) % Baso % (Auto) 0.3 (0-2) % Lymph # (Auto) 3.7 (1.2-4.9) X10*3/uL Assumption # (Auto) 0.7 (0.1-1.2) X10*3/uL Eos # (Auto) 0.2 (0.0-0.4) X10*3/uL Baso # (Auto) 0.0 (0.0-0.2) X10*3/uL Abs Immat Gran (auto) 0.02 (0.00-0.03) X10*3/uL Absolute Neuts (auto) 4.2 (2.0-8.3) x10*3/uL Absolute Nucleated RBC 0.000 (0.0-0.012) X10*3/uL Nucleated RBC % (auto) 0.0 (0.0-0.2) /100WBC PT 11.0 (10.9-12.4) SEC INR 0.9 (0.9-1.1) APTT 31.2 (26.0-36.8) SEC Sodium 140 (135-145) mmol/L Potassium 3.8 (3.3-5.1) mmol/L Chloride 105 (96-108) mmol/L Carbon Dioxide 26 (22-29) mmol/L Anion Gap 13 (12-20) BUN 7 L (9-16) mg/dL Creatinine 0.80 (0.5-1.4) mg/dL Estim Creat Clear Calc 100.2 Estimated GFR > 60 Random Glucose 98 (60-115) mg/dL Calcium 9.3 (8.4-10.2) mg/dL Total Bilirubin 0.2 (0.0-1.0) mg/dL AST 30 (5-31) U/L ALT 28 (0-31) U/L Alkaline Phosphatase 82 (39-117) U/L Troponin I High Sens < 2.7 (<3.5-17.0) ng/L B-Natriuretic Peptide 33 (<100) pg/mL Total Protein 8.1 H (6.5-8.0) g/dL Albumin 4.3 (3.5-5.0) g/dL Beta HCG, Quant < 2 mIU/mL Independent Interpretation I performed an independent interpretation of an: EKG Social Determinants Patient?s care significantly limited by Social Determinants of Health including: Problems related to primary support group Discharge Plan Discharge Clinical Impression: Pain, dental, Dental cavity Patient Disposition: Home, Self-Care Instructions: Toothache (ED) Additional Instructions: Please follow-up with your dentist later today Prescriptions: New clindamycin HCl 300 mg capsule 300 mg PO Q6H Qty: 20 0RF No Action dexamethasone [Decadron] 4 mg tablet 4 mg PO DAILY Qty: 5 0RF methocarbamol [Robaxin-750] 750 mg tablet 750 mg PO Q8H Qty: 10 0RF hydrocodone-acetaminophen 5-300 mg tablet 1 tab PO Q4-6H PRN (Reason: pain) Qty: 5 0RF acetaminophen [Tylenol Extra Strength] 500 mg tablet 1,000 mg PO QID PRN (Reason: fever or pain) Qty: 14 0RF prednisone 20 mg tablet 40 mg PO DAILY 5 Days Qty: 10 0RF oxycodone 5 mg tablet 5 mg PO BID PRN (Reason: pain) Qty: 10 0RF clindamycin HCl 300 mg capsule 300 mg PO Q6H 5 Days Qty: 20 0RF cyclobenzaprine 10 mg tablet 10 mg PO TID PRN (Reason: muscle spasm) Qty: 20 0RF Referrals: Physician,Unknown J [Primary Care Provider] - (Please follow-up with your dentist tomorrow) Print Language: Martiniquais
[2025-02-09 22:51] LABS: HCG Quantitative < 2 mIU/mL
[2025-02-09] MEDS: Clindamycin HCL 300 MG CAPSULE PO (23:49)
[2025-02-09 23:50] VITALS: BP 172/85; PULSE 87; RESP 16; TEMP 36.6; O2SAT 96
[2025-02-10 00:01] VITALS: BP 172/85; PULSE 87; RESP 16; TEMP 36.6; O2SAT 96
== END 2025-02-10 00:02 | disposition home or self-care (01) ==
PROVIDERS: Physician Assistant; Emergency Provider Emergency Medicine Emergency Medical Services
DX: R68.84 Jaw pain (principal); R51.9 Headache, unspecified; R07.89 Other chest pain; K08.89 Other specified disorders of teeth and supporting structures; R03.0 Elevated blood-pressure reading, without diagnosis of hypertension
CPT/HCPCS: 36415; 80053; 83880; 84484; 84702; 85025; 85610; 85730; 93005; 99283; 99284

== ENCOUNTER → 2025-02-09 19:37 | Outpatient (BNV) | payer OTHER, SELFPAY | PROVIDERS: Emergency Provider Emergency Medicine Emergency Medical Services; Visit Provider Internal Medicine | DX: R07.9 Chest pain, unspecified (principal); I10 Essential (primary) hypertension | CPT/HCPCS: 93010 ==

== ENCOUNTER 2025-07-01 14:04 | Emergency (ER) | payer OTHER, SELFPAY ==
--- OUTSIDE RECORDS SUMMARY | 2025-06-25 18:17 | XMS_ITS | Encounter Summary ---
Author Organization [facility] and [facility] Address [address] [place] [phone] Care Team Providers Care Filler Spreader Name Role Phone No, Pcp (Do Not Change Name) Primary Care Provid er Unavailable Reason for Referral * Consultation (Routine) - New Request Specialty Diagnoses / Procedures Referred By Tim steele Referred To Contact Internal Medicine / Primary Care Zeny Saunders PA [address] [place] [phone] Phone: tel: fax: Mark Stratton MD [address] [place] [phone] Phone: tel: fax: Referral ID Status Reason Start Date Expiration Date Visits Requested Visits Authorized [id number] New Request Specialty Services Required 06/25/2025 06/25/2026 1 1 Reason for Visit * Reason Comments Chest Pain biba from Urgent car e - c/o chest pain starting yesterday, getting progressively worse radiating down left arm, hypertensive Encounter Details Date Type Department Care Team (Latest Contact Info) Description 06/25/2025 6:17 PM EDT - 06/26/2025 12:10 AM EDT Hospital Encounter [facility] Emergency Department [address] [place] [phone] Radha Richmond MD [address] [place] [phone] Chest pain, unspecified type (Primary Dx); Cervical radiculopathy Discharge Disposition: Home or Self Care Social History Tobacco Use Types Packs/Day Years Used Date Smoking Tobacco: Never Alcohol Use Standard Drinks/Week Comments Never 0 (1 standard drink = 0.6 oz pur e alcohol) Interpersonal Safety Answer Date Record ed Is there anyone in your life that is hurting or threatening you in anyway? no 06/25/2025 Physical Indicators of Abuse No evidence of phys ical abuse 06/25/2025 Comments Unknown Sex and Gender Information Value Date Recorded Sex Assigned at Not on file Legal Sex Female 2:22 PM EDT Gender Identity Not on file Sexual Orientation Not on file documented as of this encounter Last Filed Vital Signs Vital Sign Reading Time Taken Comments Blood Pressure 155/83 06/25/2025 10:27 PM EDT Pulse 77 06/25/2025 10:27 PM EDT Temperature 36.4 C (97.6 F) 06/25/2025 10:27 PM EDT Respiratory Rate 16 06/25/2025 10:27 PM EDT Oxygen Saturation 100% 06/25/2025 10:27 PM EDT Inhaled Oxygen Concentration - - Weight - - Height - - Body Mass Index - - documented in this encounter Discharge Instructions * Discharge Instructions* Zeny Saunders PA - 06/25/2025 10:51 PM EDT In the medical field, there is always a level of diagnostic uncertainty, even if this uncertainty is low. For this reason, it is important to immediately return to the emergency department if you have any new symptoms, worsening symptoms, change of symptoms, or if you have any other concerns. We would be happy to re- evaluate you. Otherwise, please take your medications as prescribed and follow-up as recommended. * Attachments The following attachments cannot be sent through Care Everywhere. * Radiculopathy (Algerian) * Chest Pain (Algerian) documented in this encounter Medications at Time of Discharge amLODIPine (NORVASC) 5 mg tablet Take 1 tablet (5 mg total) by mouth daily. 05/27/2025 amLODIPine (NORVASC) 5 mg tablet Take 1 tablet (5 mg total) by mouth daily. 30 tablet 06/25/2025 baclofen (LIORESAL) 10 mg tablet Take 1 tablet (10 mg total) by mouth 2 (two) times daily for 7 days. 14 tablet 06/25/2025 5 glucose 4 GM chewable tablet Take 4 tablets (16 g total) by mouth as needed. lidocaine (LIDODERM) 5 % Place 1 patch over 12 hours onto the skin every 24 hours. Remove & Discard patch within 12 hours or as directed by 30 patch 06/25/2025 methylPREDNISolo ne (MEDROL DOSEPACK) 4 mg tablet follow package directions 21 tablet 06/25/2025 5 documented as of this encounter ED Notes * Jermaine Alcantar Jr., RN - 06/26/2025 12:09 AM EDT 12:09 AM Patient provided discharge paperwork/instructions by the provider. Patient verbalized understandingand denies any questions regarding care. Vital signs stable prior to discharge. IV removed with catheter intact. Patient exited ED with strong, steady gait. * Radha Richmond MD - 06/25/2025 7:21 PM EDT Images from the original note were not included. Chief Complaint Patient presents with Chest Pain biba from Urgent care - c/o chest pain starting yesterday, getting progressively worse radiating down left arm, hypertensive HPI/PE: Pt with Past Medical History: No date: Asthma (HC CODE) No date: Hypertension No date: Murmur, cardiac Presenting with hypertension and chest pain. She notes that she recently moved to [place] and has not been able to reach her refills for heramlodipine. She states that in his still being sent to a pharmacy in [place]. She is not taking it for about 1 month. She notes that 3 days ago she began to have neck pain mostly on the left side into the upper back. Has had caused a slight headache. Last night today she has been having intermittent sharp shooting chest pain worsening with ambulation with some mild dyspnea on exertion. She states the pain radiates to her left shoulder and she gets a he occasional tingling in her hand. She also notes that last night she began to feel pain in herleft lower extremity. She denies accompanying nausea, vomiting, diaphoresis. No fever, chills, recent illnesses. No cough or hemoptysis. No recent travel or surgeries. She is not currently on any hormonal medications. She did have a provoked PE in the past and states she finished her round of anticoagulants. She went to an urgent care today regarding symptoms and they sent her here for further evaluation noting a normal EKG. Per EMR: h/o costochondritis, atypical CP, HTN, CTA 04/13 negative, stress test symptomatic but negative in 2020 Physical Exam ED Triage Vitals [06/25/25 1530] BP: (!) 186/102 Pulse: 70 Pulse from O2 sat: n/a Resp: 18 Temp: 97.3 ??F (36.3 ??C) Temp src: n/a SpO2: 98 % BP (!) 155/83 Pulse 77 Temp 97.6 ??F (36.4 ??C) (Oral) Resp 16 SpO2 100% Physical Exam Vitals and nursing note reviewed. Constitutional: General: She is not in acute distress. Appearance: She is well-developed. HENT: Head: Normocephalic and atraumatic. Eyes: Pupils: Pupils are equal, round, and reactive to light. Cardiovascular: Rate and Rhythm: Normal rate and regular rhythm. Pulses: Normal pulses. Heart sounds: Normal heart sounds. Pulmonary: Effort: Pulmonary effort is normal. Breath sounds: Normal breath sounds. Chest: Chest wall: Tenderness present. Abdominal: Palpations: Abdomen is soft. Musculoskeletal: Cervical back: Spasms and tenderness present. No bony tenderness. Back: Left lower leg: Tenderness (mild) present. No swelling or bony tenderness. Legs: Skin: General: Skin is warm and dry. Neurological: Mental Status: She is alert and oriented to person, place, and time. Procedures Attestation/Critical Care Patient Reevaluation: CTA Chest (PE) w IV Contrast Result Date: 06/25/2025 No evidence of pulmonary embolism or acute thoracic pathology. [facility] Classification: Routine. Report initiated by: Toño Perez MD Reported and signed by: Peter Ivory MD CXR Result Date: 06/25/2025 No evidence of acute abnormality in the chest. [facility] Classification: Routine. Reported and signed by: Ian Caro MD -- Labs otherwise stable, troponin negative, VSS with improved blood pressure after home meds, pt is well appearing Additionally looking at OSH records it appears CR, atypical CP and costochondritis has been an ongoing problem and was being followed by cardiology She also feels much better after pain medication interventions, making MSK/radiculopathy likely a contributing factor to her pain We will give medrol dose en, baclofen, lidoderm for the neck/radiculopathy Refill amlodipine F/u to resolution with PCP, Cardiology, referrals placed for same here Strict return precautions given for new or worsening symptoms. Patient is comfortable with this plan of care. Plan of care, diagnosis, and follow-up were discussed with patient as well as return precautions. Patient expressed understanding. All questions were answered. Patient progress: improved Clinical Impressions as of 06/26/251807 Chest pain, unspecified type Cervical radiculopathy ED Disposition Discharge Zeny Saunders PA 06/26/25 0031 Zeny Saunders PA 06/26/25 0032 Radha Richmond MD 06/26/25 1808 * Asa Valdez RN - 06/25/2025 7:17 PM EDT 7:17 PM - 45 y/o female coming from home with c/o chest pain radiating to left arm x 4 days, pt stated pain comes and goes, pt A&O x 4, gcs 15, pt speaking in full sentences with no difficulty, breathing unlabored with equal and bilateral chest rise and fall, VSS, skin PWD, pt waiting for re-eval and dispo. documented in this encounter Plan of Treatment Scheduled Referrals Name Type Priority Associated Diagnoses Order Schedule Ambulatory referral to Internal Medicine- PCC Outpatient Referral Routine Ordered: 06/25/2025 documented as of this encounter Procedures Procedure Name Priority Date/Time Associated Diagnosis Comments CTA CHEST (PE) W IV CONTRAST Within 2 hours (STAT) 06/25/2025 9:20 PM EDT TROPONIN T HIGH SENSITIVITY, 1 HOUR WITH REFLEX ( GH LMW YH) STAT - Timed 06/25/2025 8:36 PM EDT POCT URINE Routine 06/25/2025 8:33 PM EDT URINALYSIS WITH CULTURE REFLEX ( LMW YH) Routine 06/25/2025 8:28 PM EDT UA REFLEX CULTURE Routine 06/25/2025 8:2 8 PM EDT URINALYSIS WITH CULTURE REFLEX Routine 06/25/2025 8:28 PM EDT COMPREHENSIVE METABOLIC PANEL Routine 06/25/2025 7:35 PM EDT TROPONIN T HIGH SENSITIVITY, 0 HOUR BASELINE WITH REFLEX ([facility] LMW YH) STAT 06/25/2025 7:35 PM EDT CBC WITH AUTO DIFFERENTIAL STAT 06/25/2025 7:35 PM EDT D-DIMER, QUANTITATIVE Routine 06/25/2025 7:35 PM EDT CBC AND DIFFERENTIAL STAT 06/25/2025 7:35 PM EDT MAGNESIUM Routine 06/25/2025 7:35 PM EDT COMPREHENSIVE METABOLIC PANEL Routine 06/25/2025 7:35 PM EDT XR CHEST PA AND LATERAL Within 1 hour (STAT) 06/25/2025 6:52 PM EDT EKG Routine 06/25/2025 3:36 PM EDT CARDIAC EKG RESULT SCAN 06/25/2025 12:00 AM EDT documented in this encounter Results * CTA Chest (PE) w IV Contrast (06/25/2025 9:20 PM EDT) Anatomical Region Laterality Modality Chest Computed Tomogra phy 06/25/2025 9:12 PM EDT Impressions 06/25/2025 9:52 PM EDT No evidence of pulmonary embolism or acute thoracic pathology. [facility] Classification: Routine. Report initiated by: Toño Perez MD Reported and signed by: Peter Ivory MD [facility] 06/25/2025 9:52 PM EDT CTA PE (CHEST) INDICATION: cp, elevated ddimer h/o PE COMPARISON: None TECHNIQUE: CT images of the chest were obtained from the lung bases through the apices after the intravenous administration of iodinated contrast. Coronal 3D/MIPS reformats are provided. IV CONTRAST: 80 mL iohexoL (OMNIPAQUE) 350 mg iodine/mL injection FINDINGS: PULMONARY ARTERIES: There is no evidence of filling defects in the pulmonary arteries to suspect pulmonary embolism. The central pulmonary arteries are normal in size The RV/LV ratio measures less than 1. There is no reflux of contrast into the intrahepatic IVC or hepatic veins. HEART: Cardiac chambers are qualitatively normal in size. No pericardial effusion. SYSTEMIC VASCULATURE: Aorta and major branches are unremarkable. LUNGS/AIRWAYS/PLEURA: Centrilobular airways are patent. No focal consolidation, pulmonary edema, pleural effusion or pneumothorax. MEDIASTINUM: Unremarkable. LYMPH NODES: No abnormal or enlarged lymph nodes are seen. UPPER ABDOMEN: Cholecystectomy. BONES & SOFT TISSUES: No acute osseous abnormality. Multilevel degenerative changes in the thoracic spine. These findings were corroborated on the MIP images. Procedure Note Peter Ivory MD - 06/25/2025 CTA PE (CHEST) INDICATION: cp, elevated ddimer h/o PE COMPARISON: None TECHNIQUE: CT images of the chest were obtained from the lung basesthrough the apices after the intravenous administration of iodinatedcontrast. Coronal 3D/MIPS reformats are provided. IV CONTRAST: 80 mL iohexoL (OMNIPAQUE) 350 mg iodine/mL injection FINDINGS: PULMONARY ARTERIES: There is no evidence of filling defects in thepulmonary arteries to suspect pulmonary embolism. The central pulmonaryarteries are normal in size The RV/LV ratio measures less than 1. There isno reflux of contrast into the intrahepatic IVC or hepatic veins. HEART: Cardiac chambers are qualitatively normal in size. No pericardialeffusion. SYSTEMIC VASCULATURE: Aorta and major branches are unremarkable. LUNGS/AIRWAYS/PLEURA: Centrilobular airways are patent. No focalconsolidation, pulmonary edema, pleural effusion or pneumothorax. MEDIASTINUM: Unremarkable. LYMPH NODES: No abnormal or enlarged lymph nodes are seen. UPPER ABDOMEN: Cholecystectomy. BONES & SOFT TISSUES: No acute osseous abnormality. Multileveldegenerative changes in the thoracic spine. These findings were corroborated on the MIP images. IMPRESSION: No evidence of pulmonary embolism or acute thoracic pathology. [facility] Classification: Routine. Report initiated by: Toño Perez MD Reported and signed by: Peter Ivory MD Zeny ELIAS IMG CT ORDERABLES Katlin l Result * Troponin T High Sensitivity, 1 Hour With Reflex (BH GH LMW YH) (06/25/2025 8:36 PM EDT) High Sensitivity Troponin T <6 See Comment ng/L 06/25/2025 9:26 PM EDT [facility] Comment:High Sensitivity Tro ponin T levels should be interpreted in the context of the [facility] Care Signature pathway. 1 hour Delta from 0 Hour, HS-Troponin T 0 ng/L 06/25/2025 9:26 PM EDT [facility] Blood Venipuncture / Unknown 06/25/2025 8:36 PM EDT 06/25/2025 8:58 PM EDT us Zeny ELIAS LAB BLOOD ORDERABLES F inal Result [facility] [address] [place] [address], [facility] [phone] * POCT urine (06/25/2025 8:33 PM EDT) Preg Test, Ur, POC Negative Negative [facility] Line in Control Window? (+ Control) Yes [facility] Background Clear? (- Control) Yes [facility] Kit Lot Number [id number] [facility] Expiration Date 12-09-2026 [facility] Urine URINE SPECIMEN / Unknown 06/25/2025 8:33 PM EDT Zeny ELIAS POINT OF CARE TEST ORD ERABLES Final Result Performing Organization Address City/[facility]/ZIP Co de Phone Number [facility] [place], [facility] * Urinalysis with culture reflex ( LMW YH) (06/25/2025 8:28 PM EDT) Clarity, UA Clear Clear 06/25/2025 8:42 PM EDT [facility] Color, UA Yellow Yellow, Colorless 06/25/2025 8:42 PM EDT [facility] Specific [place], UA 1.016 1.005 - 1.030 06/25/2025 8:42 PM EDT [facility] pH, UA 6.0 5.5 - 7.5 06/25/2025 8:42 PM EDT [facility] Protein, UA Negative Negative, Trace 06/25/2025 8:42 PM EDT [facility] Glucose, UA Negative Negative 06/25/2025 8:42 PM EDT [facility] Ketones, UA Negative Negative 06/25/2025 8:42 PM EDT [facility] Blood, UA Negative Negative 06/25/2025 8:42 PM EDT [facility] Bilirubin, UA Negative Negative 06/25/2025 8:42 PM EDT [facility] Leukocytes, UA Negative Negative 06/25/2025 8:42 PM EDT [facility] Nitrite, UA Negative Negative 06/25/2025 8:42 PM EDT [facility] Urobilinogen, UA <2.0 <=2.0 mg/dL 06/25/2025 8:42 PM EDT [facility] Krueger Top Tube Received ? Yes 06/25/2025 8:42 PM EDT [facility] Urine URINE SPECIMEN OBTAINED BY CLEAN CATCH PROCEDURE / Unknown Collection / Unknown 06/25/2025 8:28 PM EDT 06/25/2025 8:33 PM EDT Zeny ELIAS URINE ORDERABLES Final Result [address] [phone] * UA reflex to culture (06/25/2025 8:28 PM EDT) Reflex Urine Culture See Comment 06/26/2025 2:00 AM EDT [facility] Urine URINE SPECIMEN OBTAINED BY CLEAN CATCH PROCEDURE / Unknown Collection / Unknown 06/25/2025 8:28 PM EDT 06/25/2025 8:33 PM EDT Narrative [facility] DEPARTMENT OF LABORATORY MEDICINE - 06/26/2025 2:00 AM EDT Urine culture will be reflexed if indicated by urinalysis results. Please check microbiology results for urine culture. Zeny ELIAS URINE ORDERABLES Final Result [facility] DEPARTMENT OF LABORATORY MEDICINE [address] [place] [id number] [phone] [phone] * (ABNORMAL) D-dimer, quantitative (06/25/2025 7:35 PM EDT) D-Dimer 0.51(H) <=0.50 mg/L FEU 06/25/2025 8:04 PM EDT [facility] Blood Venipuncture / Unknown 06/25/2025 7:35 PM EDT 06/25/2025 7:47 PM EDT [facility] - 06/25/2025 8:04 PM EDT For a patient <=50 Years of age with unlikely pre-test probability (Wells') of DVT, a D-dimer value <=0.50 mg/L FEU has a negative predictive value >99% (95% CI = 96- 100%) and >99% sensitivity 95% CI = 83.9-100%). For a patient <=50 Years of age with low/moderate pre-test probability (Wells') of PE, a D-dimer value <=0.50 mg/L FEU has 99.6% negative predictive value (95% CI = 97.5-100%) and 98.6% sensitivity (95% CI = 92.5-100%). [Standard (brd-opt-ayoot) Reference Interval: 0.19 - 0.52 mg/L FEU] us Zeny ELIAS LAB BLOOD ORDERABLES F inal Result [address] [phone] * Comprehensive metabolic panel (06/25/2025 7:35 PM EDT) Sodium 137 136 - 144 mmol/L 06/25/2025 8:33 PM EDT [facility] Potassium 4.1 3.3 - 5.3 mmol/L 06/25/2025 8:33 PM EDT [facility] Comment:Sample slightly hemo lyzed. Results may be falsely elevated due to hemolysis. Chloride 103 98 - 107 mmol/L 06/25/2025 8:33 PM EDT [facility] CO2 23 20 - 30 mmol/L 06/25/2025 8:33 PM EDT [facility] Anion Gap 11 7 - 17 06/25/2025 8:33 PM EDT [facility] Glucose 92 70 - 100 mg/dL 06/25/2025 8:33 PM EDT [facility] BUN 8 6 - 20 mg/dL 06/25/2025 8:33 PM EDT [facility] Creatinine 0.77 0.40 - 1.30 mg/dL 06/25/2025 8:33 PM [facility] Calcium 9.5 8.8 - 10.2 mg/dL 06/25/2025 8:33 PM [facility] BUN/Creatinine Ratio 10.4 8.0 - 23.0 06/25/2025 8:33 PM [facility] Total Protein 8.2 5.9 - 8.3 g/dL 025 8:33 PM [facility] Albumin 4.5 3.6 - 5.1 g/dL 06/25/2025 8:33 PM [facility] Total Bilirubin 0.5 <=1.2 mg/dL 06/25/20 8:33 PM [facility] Alkaline Phosphatase 93 9 - 122 U/L 06/25/2025 8:33 PM [facility] Alanine Aminotransferase (ALT) 27 10 - 35 U/L 06/25/2025 8:33 PM [facility] Comment:Calcium dobesilate c an cause artificially low ALT results at therapeutic concentrations Aspartate Aminotransferase (AST) 35 10 - 35 U/L 06/25/2025 8:33 PM [facility] Globulin 3.7 2.0 - 3.9 g/dL 06/25/2025 8:33 PM [facility] A/G Ratio 1.2 1.0 - 2.2 06/25/2025 8:33 PM [facility] AST/ALT Ratio 1.3 Reference Range Not Established 06/25/2025 8:33 PM [facility] eGFR (Creatinine) >60 >=60 mL/min/1.73m2 06/25/2025 8:33 PM [facility] Comment: [facility] utilizes CKD-EPI Creatinine 2020 to report eGFR. Values < 60 mL/min/1.73 m2 may indicate CKD if present for more than three months AND creatinine is at steady state. The eGFR provides a rough estimate of kidney function. For further guidance, please refer to the CKD: Adult Material Handling Technician Signature pathway. Creatinine Delta 06/25/20 8:33 PM [facility] Comment:No previous creatini ne <5.00 mg/dL is available within the previous 12 months to calculate a delta creatinine. Blood Venipuncture / Unknown 06/25/2025 7:35 PM EDT 06/25/2025 7:47 PM EDT us Zeny ELIAS LAB BLOOD ORDERABLES F inal Result [facility] [address] [place] [address], [facility] [phone] * (ABNORMAL) CBC auto differential (06/25/2025 7:35 PM EDT) WBC 10.4 4.0 - 11.0 x1000/ L 06/25/2025 7:55 PM EDT [facility] RBC 4.42 4.00 - 6.00 M/ L 06/25/2025 7:55 PM [facility] Hemoglobin 10.3(L) 11.7 - 15.5 g/dL 06/25/2025 7:55 PM [facility] Hematocrit 33.10(L) 35.00 - 45.00 % 06/25/2025 7:55 PM [facility] MCV 74.9(L) 80.0 - 100.0 fL 06/25/2025 7:55 PM [facility] MCH 23.3(L) 27.0 - 33.0 pg 06/25/2025 7:55 PM [facility] MCHC 31.1 31.0 - 36.0 g/dL 06/25/2025 7:55 PM [facility] RDW-CV 15.8(H) 11.0 - 15.0 % 06/25/2025 7:55 PM [facility] Platelets 348 150 - 420 x1000/ L 06/25/2025 7:55 PM [facility] MPV 9.4 8.0 - 12.0 fL 06/25/2025 7:55 PM [facility] Neutrophils 56.8 39.0 - 72.0 % 06/25/2025 7:55 PM [facility] Lymphocytes 35.5 17.0 - 50.0 % 06/25/2025 7:55 PM [facility] Monocytes 5.8 4.0 - 12.0 % 06/25/2025 7:55 PM [facility] Eosinophils 1.3 0.0 - 5.0 % 06/25/2025 7:55 PM EDT [facility] Basophil 0.3 0.0 - 1.4 % 06/25/2025 7:55 PM [facility] Immature Granulocytes 0.3 0.0 - 1.0 % 06/25/2025 7:55 PM [facility] nRBC 0.0 0.0 - 1.0 % 06/25/2025 7:55 PM [facility] Absolute Lymphocyte Count 3.69 0.60 - 3.70 x 1000/ L 06/25/2025 7:55 PM [facility] Monocyte Absolute Count 0.60 0.00 - 1.00 x 1000/ L 06/25/2025 7:55 PM [facility] Eosinophil Absolute Count 0.14 0.00 - 1.00 x 1000/ L 06/25/2025 7:55 PM [facility] Basophil Absolute Count 0.03 0.00 - 1.00 x 1000/ L 06/25/2025 7:55 PM [facility] Absolute Immature Granulocyte Count 0.03 0.00 - 0.30 x 1000/ L 06/25/2025 7:55 PM [facility] Absolute nRBC 0.00 0.00 - 1.00 x 1000/ L 06/25/2025 7:55 PM [facility] ANC (Abs Neutrophil Count) 5.89 2.00 - 7.60 x 1000/ L 06/25/2025 7:55 PM [facility] Blood Venipuncture / Unknown 06/25/2025 7:35 PM EDT 06/25/2025 7:47 PM EDT us Zeny ELIAS LAB BLOOD ORDER[place] [address], [facility] [phone] * Troponin T High Sensitivity, Emergency; 0 hour baseline AND 1 hour with reflex (3 hour) (57:35 PM EDT) High Sensitivity Troponin T <6 See Comment ng/L 06/25/2025 8:14 PM EDT [facility] Comment:High Sensitivity Tro ponin T levels should be interpreted in the context of the [facility] Care Signature pathway. Blood Venipuncture / Unknown 06/25/2025 7:35 PM EDT 06/25/2025 7:47 PM EDT Zeny Fernandaraul Saunders PA LAB BLOOD ORDERABLES F inal Result Performing Organization Address City/[facility]/ZIP Co de Phone Number [address] [phone] * Mag (06/25/2025 7:35 PM EDT) [facility] Magnesium 2.0 1.7 - 2.4 mg/dL 06/25/2025 8:33 PM EDT [facility] Blood Venipuncture / Unknown 06/25/2025 7:35 PM EDT 06/25/2025 7:47 PM EDT Zenyhuan Saunders PA LAB BLOOD ORDERABLES F inal Result Performing Organization Address [facility] Co de Phone Number [address] [phone] * CXR (06/25/2025 6:52 PM EDT) Anatomical Region Laterality Modality Chest Computed Radiogr aphy 06/25/2025 7:14 PM EDT Impressions 06/25/2025 7:16 PM EDT No evidence of acute abnormality in the chest. [facility] Classification: Routine. Reported and signed by: Ian Caro MD Narrative 06/25/2025 7:16 PM EDT CLINICAL INFORMATION: chest pain TECHNIQUE: XR CHEST PA AND LATERAL COMPARISON: None. FINDINGS: Cardiac silhouette is top normal in size. Mediastinal contours are unremarkable. No focal lung consolidation, pulmonary edema, pleural effusion or pneumothorax. No acute osseous abnormality. Procedure Note Ian Caro MD - 06/25/2025 CLINICAL INFORMATION: chest pain TECHNIQUE: XR CHEST PA AND LATERAL COMPARISON: None. FINDINGS: Cardiac silhouette is top normal in size. Mediastinal contours areunremarkable. No focal lung consolidation, pulmonary edema, pleural effusion orpneumothorax. No acute osseous abnormality. IMPRESSION: No evidence of acute abnormality in the chest. [facility] Notify System Classification: Routine. Reported and signed by: Ian Caro MD Zen[facility] DI[facility]NOSTIC IMAGING ORDERABLES Final Result * EKG (06/25/2025 3:36 PM EDT) Heart Rate 76 bpm [facility] ECG QRS Interval 92 ms [facility] ECG QT Interval 416 ms [facility] ECG QTC Interval 468 ms [facility] ECG P Crystal 53 deg [facility] ECG QRS Crystal 30 deg [facility] ECG T Wave Crystal 32 deg [facility] ECG P-R Interval 156 msec [facility] ECG SEVERITY Normal ECG severity [facility] ECG Comment::Normal sinus rhythm :Normal ECG:Electronically Signed On 06-28-2025 12:58:22 EDT by Dominick Beckman MD OTHER / Unknown 06/25/2025 3 :36 PM EDT Sam Mitchell MD ECG ORDERABLES Final Result [facility] ECG * Cardiac EKG Result Scan (06/25/2025 12:00 AM EDT) us Provider Not In System CV CARDIAC REPORT (CVR) F inal Result documented in this encounter Visit Diagnoses Diagnosis Chest pain, unspecified type- Primary Cervical radiculopathy Brachial neuritis or radiculitis nos documented in this encounter Administered Medications Inactive Administered Medications - up to 3 most recent administrations Medication Order MAR Action Action Date Dose Rate Site amLODIPine (NORVASC) tablet 5 mg 5 mg, Oral, ONCE, On Sat06/25/25 at 1900, For 1 dose, Hold for SBP < 90 mm Hg Common Side Effects: Fluid accumulation, fatigue, hypotension. Given 06/25/2025 7:25 PM EDT 5 mg diazePAM (VALIUM) tablet 5 mg 5 mg, Oral, ONCE, On Sat06/25/25 at 1900, For 1 dose, Common Side Effects: Confusion, dizziness, drowsiness, mood changes. Given 06/25/2025 7:25 PM EDT 5 mg iohexoL (OMNIPAQUE) 350 mg iodine/mL injection 80 mL 80 mL, Intravenous, IMG ONCE PRN, other, Starting on Sat06/25/25 at 2120, For 1 dose, Vesicant agents may cause severe tissue damage, including necrosis, if they extravasate into tissue; Common Side Effects: Headache, nausea, allergic reaction. Given 06/25/2025 9:20 PM EDT 80 mLs lidocaine 4 % topical patch 1 patch 1 patch, Transdermal, Administer over 12 Hours, EVERY 24 HOURS, First dose on Sat06/25/25 at 1900, Apply to: Neck, Midline Patch Applied 06/25/2025 7:26 PM EDT 1 patch Left Upper Back morphine syringe 2 mg 2 mg, IV Push, ONCE, On Sat06/25/25 at 1900, For 1 dose, If given as IV push, administer over 5 minutes. If given as subcutaneous injection, administer over a few seconds. Do not administer > 1.5ml per injection site use multiple sites. If ordered IV Push: Administer undiluted (or dilute with 0.9 % sodium chloride to a concentration of 1 to 2 mg/mL) and administer over 3 minutes (adult) or 5 minutes (pediatric). Given 06/25/2025 7:37 PM EDT 2 mg documented in this encounter Active and Recently Administered Medications Times are shown in EDT. Scheduled Medication Order 06/24/2025 06/25/2025 06/26/2025 amLODIPine (NORVASC) tablet 5 mg (COMPLETED) 5 mg, Oral, ONCE, On Sat06/25/25 at 1900, For 1 dose, Hold for SBP < 90 mm Hg Common Side Effects: Fluid accumulation, fatigue, hypotension. 1924 (Given - Provider: Asa Valdez RN) diazePAM (VALIUM) tablet 5 mg (COMPLETED) 5 mg, Oral, ONCE, On Sat06/25/25 at 1900, For 1 dose, Common Side Effects: Confusion, dizziness, drowsiness, mood changes. 1924 (Given - Provider: Asa Valdez RN) lidocaine 4 % topical patch 1 patch 1 patch, Transdermal, Administer over 12 Hours, EVERY 24 HOURS, First dose on Sat06/25/25 at 1900, Apply to: Neck, Midline 1925 (Patch Applied - Provider: Asa Valdez RN) 0010 (Due: Patch Removed - Provider: Automatic Discharge Provider - Comment: Time automatically adjusted from order being discontinued) morphine syringe 2 mg (COMPLETED) 2 mg, IV Push, ONCE, On Sat06/25/25 at 1900, For 1 dose, If given as IV push, administer over 5 minutes. If given as subcutaneous injection, administer over a few seconds. Do not administer > 1.5ml per injection site use multiple sites. If ordered IV Push: Administer undiluted (or dilute with 0.9 % sodium chloride to a concentration of 1 to 2 mg/mL) and administer over 3 minutes (adult) or 5 minutes (pediatric). 1936 (Given - Provider: Asa Valdez RN) PRN Medication Order 06/24/2025 06/25/2025 06/26/2025 iohexoL (OMNIPAQUE) 350 mg iodine/mL injection 80 mL (COMPLETED) 80 mL, Intravenous, IMG ONCE PRN, other, Starting on Sat06/25/25 at 2120, For 1 dose, Vesicant agents may cause severe tissue damage, including necrosis, if they extravasate into tissue; Common Side Effects: Headache, nausea, allergic reaction. 2119 (Given - Provider: Padmini Jimenez) documented in this encounter Care Teams Filler Spreader Relationship Specialty Start Date End Date No, Pcp (Do Not Change Name) PCP - General 06/20/25 documented as of this encounter
--- OUTSIDE RECORDS SUMMARY | 2025-06-30 20:17 | XMS_ITS | Encounter Summary ---
Author Organization [facility] Address [address] [place] [phone] Care Team Providers Care Office Machines Sales Representative Name Role Phone No, Pcp (Do Not Change Name) Primary Care Provid er Unavailable Reason for Referral * Consultation (Routine) - New Request Specialty Diagnoses / Procedures Referred By Tim steele Referred To Contact Cardiovascular Disease Pedro Drew MD [address] [place] [phone] Phone: tel: fax: [facility] [address] [place] [address] Phone: tel: fax: Referral ID Status Reason Start Date Expiration Date Visits Requested Visits Authorized [id number] New Request Specialty Services Required 07/01/2025 07/01/2026 1 1 Reason for Visit * Reason Comments Hypertension Home BP with systoli c in 170s. Compliant with BP meds. L anterior CP. Encounter Details Date Type Department Care Team (Late st Contact Info) Description 06/30/2025 8:17 PM EDT - 07/01/2025 2:00 AM EDT Emergency [facility] Emergency Department [address] [place] [id number] Pedro Drew MD [address] [place] [phone] Chest pain, unspecified type (Primary Dx); Pain in left lower leg Discharge Disposition: Home or Self Care Social History Tobacco Use Types Packs/Day Years Used Date Smoking Tobacco: Never Alcohol Use Standard Drinks/Week Comments Never 0 (1 standard drink = 0.6 oz pur e alcohol) Interpersonal Safety Answer Date Record ed Is there anyone in your life that is hurting or threatening you in anyway? no 06/30/2025 Physical Indicators of Abuse No evidence of phys ical abuse 06/30/2025 Comments Unknown Sex and Gender Information Value Date Recorded Sex Assigned at Not on file Legal Sex Female 2:22 PM EDT Gender Identity Not on file Sexual Orientation Not on file documented as of this encounter Last Filed Vital Signs Vital Sign Reading Time Taken Comments Blood Pressure 148/93 06/30/2025 11:23 PM EDT Pulse 66 06/30/2025 11:23 PM EDT Temperature 36.7 C (98.1 F) 06/30/2025 11:23 PM EDT Respiratory Rate 16 06/30/2025 11:2 3 PM EDT Oxygen Saturation 97% 06/30/2025 11: 23 PM EDT Inhaled Oxygen Concentration - - Weight 100.4 kg (221 lb 5.5 oz) 06/30/2025 6:34 PM EDT Height - - Body Mass Index 40.48 06/25/2025 2:38 PM EDT documented in this encounter Discharge Instructions * Discharge Instructions* Cristino Kasper PA - 07/01/2025 1:57 AM EDT Please read these instructions carefully. You were seen in the ED for your: Chest pain and leg pain You have been referred to a local compliance intern. Follow up after discharge for further evaluation. Please return to the nearest emergency department or call 911 if you develop new or worsening symptoms such as: fevers, chills, trouble breathing, chest pain, abdominal pain, inability to keep down foods or fluids, or if you have any other symptoms that concern you. You can call 211 for essential community resources if needed. Don't have a Primary Care Provider for follow-up? Contact one of the local [facility] establish care today. [facility] [phone] [facility] [phone] Optim [phone] It was our pleasure meeting and taking care of you! Please let us know if there are any additional resources we can provide you today! * Attachments The following attachments cannot be sent through Care Everywhere. * Chest Pain Discharge Instructions ([place]) * Muscle and Bone Pain Discharge Instructions ([place]) documented in this encounter Medications at Time [...] as of this encounter ED Notes * Quinton Marquis RN - 06/30/2025 9:26 PM EDT 9:26 PM 45 year old female presents to ED with c/o HTN and associated symptoms involving headache, chest pain. Patient reports compliance with Amlodipine, but endorses feeling headache and checking BP at night and reading high in 150s-170s. States that in the morning and throughout most of the day she feels that her BP is under control. Alert and oriented x4, NAD. Pending eval. documented in this encounter Plan of Treatment Scheduled Referrals Name Type Priority Associated Diagnoses Order Schedule Ambulatory referral to Cardiovascular Disease Outpatient Referral Routine Order ed: 07/01/2025 documented as of this encounter Procedures Procedure Name Priority Date/Time Associated Diagnosis Comments US DUPLEX LOWER EXTREMITY VENOUS LEFT Within 2 hours (STAT) 07/01/2025 1:13 AM EDT CTA CHEST ABDOMEN W AND/OR WO IV CONTRAST Within 2 hours (STAT) 07/01/2025 12:22 AM EDT TROPONIN T HIGH SENSITIVITY, 1 HOUR WITH REFLEX ( [facility]) STAT - Timed 06/30/2025 9:18 PM EDT XR CHEST PA AND LATERAL STAT 06/30/2025 7:55 PM EDT COMPREHENSIVE METABOLIC PANEL Routine 06/30/2025 7:04 PM EDT TROPONIN T HIGH SENSITIVITY, 0 HOUR BASELINE WITH REFLEX ([facility]) STAT 06/30/2025 7:04 PM EDT CBC WITH AUTO DIFFERENTIAL STAT 06/30/2025 7:04 PM EDT PROTIME AND INR STAT 06/30/2025 7:04 PM EDT CBC AND DIFFERENTIAL STAT 06/30/2025 7:04 PM EDT MAGNESIUM Routine 06/30/2025 7:04 PM EDT COMPREHENSIVE METABOLIC PANEL Routine 06/30/2025 7:04 PM EDT EKG Routine 06/30/2025 6:39 PM EDT documented in this encounter Results * US Duplex Lower Extremity Venous Left (07/01/2025 1:13 AM EDT) Anatomical Region Laterality Modality Vascular, Thigh, Leg Ultrasound 07/01/2025 1:19 AM EDT Impressions 07/01/2025 1:45 AM EDT No evidence of deep venous thrombosis in left lower extremity veins. Please note that the calf veins are limited in evaluation and that ultrasound is less sensitive for evaluation of thrombus in calf veins. If there is continued clinical concern, re-evaluation can be performed after 5-7 days to evaluate for propagation of an unseen thrombus from the calf. [facility] Notify System Classification: Routine. Report initiated by: Felton Guajardo MD Reported and signed by: Mora Jiang MD [facility] 07/01/2025 1:45 AM EDT US DUPLEX LOWER EXTREMITY VENOUS LEFT HISTORY: Pain, Swelling. COMPARISON: None. TECHNIQUE: Grayscale, color and pulsed Doppler imaging were performed. FINDINGS: COMMON FEMORAL VEIN: No thrombus. GREAT SAPHENOUS ORIGIN: No thrombus. UPPER PROFUNDA FEMORAL VEIN: No thrombus. FEMORAL VEIN: No thrombus. POPLITEAL VEIN: No thrombus. Appropriate augmentation to flow is noted in the popliteal vein. Trifurcation: No thrombus. POSTERIOR TIBIAL VEINS: No thrombus. PERONEAL VEINS: Not visualized. LIMITATIONS: None. There is symmetric phasicity in lower external iliac veins. Procedure Note Mora Jiang MD - 07/01/2025 US DUPLEX LOWER EXTREMITY VENOUS LEFT HISTORY: Pain, Swelling. COMPARISON: None. TECHNIQUE: Grayscale, color and pulsed Doppler imaging were performed. FINDINGS: COMMON FEMORAL VEIN: No thrombus. GREAT SAPHENOUS ORIGIN: No thrombus. UPPER PROFUNDA FEMORAL VEIN: No thrombus. FEMORAL VEIN: No thrombus. POPLITEAL VEIN: No thrombus. Appropriate augmentation to flow is noted inthe popliteal vein. Trifurcation: No thrombus. POSTERIOR TIBIAL VEINS: No thrombus. PERONEAL VEINS: Not visualized. LIMITATIONS: None. There is symmetric phasicity in lower external iliac veins. IMPRESSION: No evidence of deep venous thrombosis in left lower extremity veins. Please note that the calf veins are limited in evaluation and thatultrasound is less sensitive for evaluation of thrombus in calf veins. Ifthere is continued clinical concern, re-evaluation can be performed after5-7 days to evaluate for propagation of an unseen thrombus from thecalf. [facility] Notify [facility] Classification: Routine. Report initiated by: Felton Guajardo MD Reported and signed by: Mora Jiang MD us Dusty ELIAS IMG US ORDERABLES Final Res ult * CTA Chest Abdomen(Dissection) (07/01/2025 12:22 AM EDT) Anatomical Region Laterality Modality Chest, Abdomen, RCC Abdomen/Pelvis, RCC CTA Ches t Computed Tomography 07/01/2025 12:3 1 AM EDT Impressions 07/01/2025 12:48 AM EDT No aortic dissection or acute aortic abnormality. Adequate contrast opacification to assess the central/major pulmonary arteries. No filling defects seen within the pulmonary arteries to suggest pulmonary embolism. No evidence of acute abnormality in the chest or abdomen. [facility] Notify [facility] Classification: Routine. Report initiated by: Felton Guajardo MD Reported and signed by: Ian Caro MD Narrative 07/01/2025 12:48 AM EDT CTA CHEST AND ABDOMEN INDICATION: PLEASE EVALUATE FOR BOTH DISSECTION AND PE COMPARISON: CTA PE (CHEST) 2025-06-25 TECHNIQUE: Prospectively ECG gated CT images of the chest were obtained from the thoracic inlet to the iliac bifurcation with contrast. Coronal MIP reformats are provided. IV CONTRAST: 120 ML IOHEXOL (OMNIPAQUE) 350 MG IODINE/ML INJECTION FINDINGS: QUALITY OF EXAM: Good. AORTA: No aortic dissection or an acute aortic abnormality. No aortic aneurysm. MAJOR VESSELS: Major aortic branches are patent with no significant stenosis, thrombosis or dissection. Although the study was protocoled for aortic phase imaging, there is adequate contrast opacification of the central/major pulmonary arteries. No filling defects are seen to the level of the lobar arteries. No evidence for pulmonary embolism. HEART: Unremarkable. LUNGS/AIRWAYS/PLEURA: Unremarkable MEDIASTINUM: Esophagus is mildly patulous. LYMPH NODES: No abnormal or enlarged lymph nodes are seen. Please note that evaluation of parenchyma of the upper abdominal viscera is somewhat limited due to early arterial phase imaging. Within this limitation: LIVER: Unremarkable. GALLBLADDER: Status post cholecystectomy. SPLEEN: Unremarkable. PANCREAS: Unremarkable. ADRENALS: Unremarkable. KIDNEYS: Unremarkable. BOWEL: Visualized bowel loops are unremarkable. No ascites or intraperitoneal free air. BONES & SOFT TISSUE: No aggressive osseous lesion. No acute osseous abnormality. Findings are confirmed on the MIP images. Procedure Note Ian Caro MD - 07/01/2025 CTA CHEST AND ABDOMEN INDICATION: PLEASE EVALUATE FOR BOTH DISSECTION AND PE COMPARISON: CTA PE (CHEST) 2025-06-25 TECHNIQUE: Prospectively ECG gated CT images of the chest were obtainedfrom the thoracic inlet to the iliac bifurcation with contrast. CoronalMIP reformats are provided. IV CONTRAST: 120 ML IOHEXOL (OMNIPAQUE) 350 MG IODINE/ML INJECTION FINDINGS: QUALITY OF EXAM: Good. AORTA: No aortic dissection or an acute aortic abnormality. No aorticaneurysm. MAJOR VESSELS: Major aortic branches are patent with no significantstenosis, thrombosis or dissection. Although the study was protocoled for aortic phase imaging, there isadequate contrast opacification of the central/major pulmonary arteries.No filling defects are seen to the level of the lobar arteries. Noevidence for pulmonary embolism. HEART: Unremarkable. LUNGS/AIRWAYS/PLEURA: Unremarkable MEDIASTINUM: Esophagus is mildly patulous. LYMPH NODES: No abnormal or enlarged lymph nodes are seen. Please note that evaluation of parenchyma of the upper abdominal viscerais somewhat limited due to early arterial phase imaging. Within thislimitation: LIVER: Unremarkable. GALLBLADDER: Status post cholecystectomy. SPLEEN: Unremarkable. PANCREAS: Unremarkable. ADRENALS: Unremarkable. KIDNEYS: Unremarkable. BOWEL: Visualized bowel loops are unremarkable. No ascites orintraperitoneal free air. BONES & SOFT TISSUE: No aggressive osseous lesion. No acute osseousabnormality. Findings are confirmed on the MIP images. IMPRESSION: No aortic dissection or acute aortic abnormality. Adequate contrast opacification to assess the central/major pulmonaryarteries. No filling defects seen within the pulmonary arteries to suggestpulmonary embolism. No evidence of acute abnormality in the chest or abdomen. [facility] Notify [facility] Classification: Routine. Report initiated by: Felton Guajardo MD Reported and signed by: Ian Caro MD us Dusty ELIAS [place] [address] ORDERABLES Final Res ult * Troponin T High Sensitivity, 1 Hour With Reflex ([facility]) (06/30/2025 9:18 PM EDT) High Sensitivity Troponin T <6 See Comment ng/L 06/30/2025 10:00 PM EDT [facility] Comment:High Sensitivity Tro ponin T levels should be interpreted in the context of the [facility] Care Signature pathway. 1 hour Delta from 0 Hour, HS-Troponin T 0 ng/L 06/30/2025 10:00 PM EDT [facility] Blood Venipuncture / Unknown 06/30/2025 9:18 PM EDT 06/30/2025 9:28 PM EDT us Maria C Rasmussen MD LAB BLOOD ORDERABLES Final Re sult [address] [phone] * CXR (06/30/2025 7:55 PM EDT) Anatomical Region Laterality Modality Chest Computed Radiogr aphy 06/30/2025 7:56 PM EDT Impressions 06/30/2025 7:57 PM EDT No acute findings. [facility] Radiology Notify System Classification: Routine. Reported and signed by: Angie Maxwell MD Narrative 06/30/2025 7:57 PM EDT EXAM: XR CHEST PA AND LATERAL INDICATION: chest pain COMPARISON: XR CHEST PA AND LATERAL 2025-06-25 FINDINGS: Support Devices: None Heart/Mediastinum: Normal. Lungs/Pleura: No focal consolidation. No effusion or pneumothorax. Bones: No acute findings. Procedure Note Angie Maxwell MD - 06/30/2025 EXAM: XR CHEST PA AND LATERAL INDICATION: chest pain COMPARISON: XR CHEST PA AND LATERAL 2025-06-25 FINDINGS: Support Devices: None Heart/Mediastinum: Normal. Lungs/Pleura: No focal consolidation. No effusion or pneumothorax. Bones: No acute findings. IMPRESSION: No acute findings. [facility] Radiology Notify System Classification: Routine. Reported and signed by: Angie Maxwell MD us Maria C Rasmussen MD IMG DIAGNOSTIC IMAGING ORDERA BLES Final Result * Mag (06/30/2025 7:04 PM EDT) Magnesium 1.9 1.7 - 2.4 mg/dL 06/30/2025 7:38 PM EDT [facility] Blood Venipuncture / Unknown 06/30/2025 7:04 PM EDT 06/30/2025 7:11 PM EDT us Maria C Rasmussen MD LAB BLOOD ORDERABLES Final Re sult Performing Organization Address [facility]/ZIP Co de Phone Number [address] [phone] * PT/INR (06/30/2025 7:04 PM EDT) Pathologist [facility] Prothrombin Time 10.5 9.0 - 12.0 seconds 06/30/2025 7:39 PM EDT [facility] INR 1.01 0.90 - 1.10 06/30/2025 7:39 PM T [facility] Blood Venipuncture / Unknown 06/30/2025 7:04 PM EDT 06/30/2025 7:11 PM EDT [facility] - 06/30/2025 7:39 PM EDT Effective 06/24/2025. New Normal Reference Intervals are in place at all [facility] Labs. us Maria C Rasmussen MD LAB BLOOD ORDERABLES Final Re sult Performing Organization Address [facility]/ZIP Co de Phone Number [address] [phone] * (ABNORMAL) Comprehensive metabolic panel (06/30/2025 7:04 PM EDT) Pathologist [facility] Sodium 138 136 - 144 mmol/L 06/30/2025 7:54 PM EDT [facility] Potassium 3.2(L) 3.3 - 5.3 mmol/L 06/30/2025 7:54 PM [facility] Chloride 101 98 - 107 mmol/L 06/30/2025 7:54 PM [facility] CO2 25 20 - 30 mmol/L 06/30/2025 7:54 PM [facility] Anion Gap 12 7 - 17 06/30/2025 7:54 PM T [facility] Glucose 119(H) 70 - 100 mg/dL 06/30/2025 7:54 PM T [facility] BUN 14 6 - 20 mg/dL 06/30/2025 7:54 PM [facility] Creatinine 0.79 0.40 - 1.30 mg/dL 06/30/2025 7:54 PM [facility] Calcium 9.6 8.8 - 10.2 mg/dL 06/30/2025 7:54 PM [facility] BUN/Creatinine Ratio 17.7 8.0 - 23.0 06/30/2025 7:54 PM [facility] Total Protein 8.1 5.9 - 8.3 g/dL 025 7:54 PM [facility] Albumin 4.3 3.6 - 5.1 g/dL 06/30/2025 7:54 PM [facility] Total Bilirubin 0.3 <=1.2 mg/dL 06/30/20 25 7:54 PM [facility] Alkaline Phosphatase 94 9 - 122 U/L 06/30/2025 7:54 PM [facility] Alanine Aminotransferase (ALT) 24 10 - 35 U/L 06/30/2025 7:54 PM [facility] Comment:Calcium dobesilate c an cause artificially low ALT results at therapeutic concentrations Aspartate Aminotransferase (AST) 19 10 - 35 U/L 06/30/2025 7:54 PM [facility] Globulin 3.8 2.0 - 3.9 g/dL 06/30/2025 7:54 PM [facility] A/G Ratio 1.1 1.0 - 2.2 06/30/2025 7:54 PM [facility] AST/ALT Ratio 0.8 Reference Range Not Established 06/30/2025 7:54 PM [facility] eGFR (Creatinine) >60 >=60 mL/min/1.73m2 06/30/2025 7:54 PM [facility] Comment: [facility] utilizes CKD-EPI Creatinine 2020 to report eGFR. Values < 60 mL/min/1.73 m2 may indicate CKD if present for more than three months AND creatinine is at steady state. The eGFR provides a rough estimate of kidney function. For further guidance, please refer to the CKD: Adult [employer] Signature pathway. Creatinine Delta 0.02 See Comment 025 7:54 PM [facility] Comment: Delta creatinine is the difference between the current creatinine and the most recent prior creatinine (if available within the previous 12 months). It is intended to detect significant changes in kidney function for patients whose creatinine is <5 mg/dL. A delta is not calculated for patients whose baseline creatinine is >=5 mg/dL or those who do not have a baseline within the last year. The following deltas will flag as critical (triggering a call from the laboratory): a) Deltas >= +1.5 mg/dL for patients with baseline creatinine <= 1.5 mg/dL. b) Deltas >= +3 mg/dL for patients with baseline creatinine between 1.5 and 5 mg/dL. Blood Venipuncture / Unknown 06/30/2025 7:04 PM EDT 06/30/2025 7:11 PM EDT us Maria C Rasmussen MD LAB BLOOD ORDERABLES Final Re sult Performing Organization Address City/State/[facility] Co de Phone Number [address] [phone] * (ABNORMAL) CBC auto differential (06/30/2025 7:04 PM EDT) WBC 13.5(H) 4.0 - 11.0 x1000/ L 06/30/2025 7:15 PM [facility] RBC 4.43 4.00 - 6.00 M/ L 06/30/2025 7:15 PM [facility] Hemoglobin 10.6(L) 11.7 - 15.5 g/dL 06/30/2025 7:15 PM [facility] Hematocrit 33.60(L) 35.00 - 45.00 % 06/30/2025 7:15 PM [facility] MCV 75.8(L) 80.0 - 100.0 fL 06/30/2025 7:15 PM [facility] MCH 23.9(L) 27.0 - 33.0 pg 06/30/2025 7:15 PM [facility] MCHC 31.5 31.0 - 36.0 g/dL 06/30/2025 7:15 PM [facility] RDW-CV 15.9(H) 11.0 - 15.0 % 06/30/2025 7:15 PM [facility] Platelets 471(H) 150 - 420 x1000/ L 06/30/2025 7:15 PM [facility] MPV 9.0 8.0 - 12.0 fL 06/30/2025 7:15 PM [facility] Neutrophils 70.9 39.0 - 72.0 % 06/30/2025 7:15 PM [facility] Lymphocytes 22.1 17.0 - 50.0 % 06/30/2025 7:15 PM [facility] Monocytes 5.6 4.0 - 12.0 % 06/30/2025 7:15 PM [facility] Eosinophils 0.5 0.0 - 5.0 % 06/30/2025 7:15 PM [facility] Basophil 0.3 0.0 - 1.4 % 06/30/2025 7:15 PM [facility] Immature Granulocytes 0.6 0.0 - 1.0 % 06/30/2025 7:15 PM [facility] nRBC 0.0 0.0 - 1.0 % 06/30/2025 7:15 PM [facility] Absolute Lymphocyte Count 2.98 0.60 - 3.70 x 1000/ L 06/30/2025 7:15 PM [facility] Monocyte Absolute Count 0.75 0.00 - 1.00 x 1000/ L 06/30/2025 7:15 PM [facility] Eosinophil Absolute Count 0.07 0.00 - 1.00 x 1000/ L 06/30/2025 7:15 PM [facility] Basophil Absolute Count 0.04 0.00 - 1.00 x 1000/ L 06/30/2025 7:15 PM [facility] Absolute Immature Granulocyte Count 0.08 0.00 - 0.30 x 1000/ L 06/30/2025 7:15 PM [facility] Absolute nRBC 0.00 0.00 - 1.00 x 1000/ L 06/30/2025 7:15 PM [facility] ANC (Abs Neutrophil Count) 9.55(H) 2.00 - 7.60 x 1000/ L 06/30/2025 7:15 PM [facility] Blood Venipuncture / Unknown 06/30/2025 7:04 PM EDT 06/30/2025 7:11 PM EDT Maria C Rasmussen MD LAB BLOOD ORDERABLES Final Re sult Performing Organization Address [facility] Co de Phone Number [address] [phone] * Troponin T High Sensitivity, Emergency; 0 hour baseline AND 1 hour with reflex (3 hour) (57:04 PM EDT) High Sensitivity Troponin T <6 See Comment ng/L 06/30/2025 7:37 PM EDT [facility] Comment:High Sensitivity Tro ponin T levels should be interpreted in the context of the [facility] Care Signature pathway. Blood Venipuncture / Unknown 06/30/2025 7:04 PM EDT 06/30/2025 7:11 PM EDT Maria C Rasmussen MD LAB BLOOD ORDERABLES Final Re sult Performing Organization Address [facility] Co de Phone Number [address] [phone] * EKG (06/30/2025 6:39 PM EDT) Heart Rate 68 bpm [facility] ECG QRS Interval 98 ms [facility] ECG QT Interval 404 ms [facility] ECG QTC Interval 429 ms [facility] ECG P [place] 57 deg [facility] ECG QRS [place] 33 deg [facility] ECG T Wave [place] 35 deg [facility] ECG P-R Interval 146 msec [facility] SEVERITY Borderline ECG severity [facility] ECG Comment::Normal sinus rhythm :Incomplete right bundle branch block:left ventricular hypertrophy by voltage:Borderline ECG:Electronically Signed On 07-01-2025 13:23:32 EDT by Ross Cheung MD OTHER / Unknown 06/30/2025 6 :39 PM EDT Maria C Rasmussen MD ECG ORDERABLES Final Result [facility] ECG documented in this encounter Visit Diagnoses Diagnosis Chest pain, unspecified type- Primary Pain in left lower leg documented in this encounter Administered Medications Inactive Administered Medications - up to 3 most recent administrations Medication Order MAR Action Action Date Dose Rate Site iohexoL (OMNIPAQUE) 350 mg iodine/mL injection 120 mL 120 mL, Intravenous, IMG ONCE PRN, other, Starting on Sat07/01/25 at 0022, For 1 dose, Vesicant agents may cause severe tissue damage, including necrosis, if they extravasate into tissue; Common Side Effects: Headache, nausea, allergic reaction. Given 07/01/2025 12:22 AM EDT 120 mLs potassium bicarbonate-citric acid (EFFER-K, K-LYTE) effervescent tablet for oral solution 50 mEq 50 mEq, Oral, ONCE, On Sat06/30/25 at 2200, For 1 dose, Completely dissolve the effervescent tablet in 3 ounces (90 mL) of water before drinking or administration. Given 06/30/2025 10:03 PM EDT 50 mEq sodium chloride 0.9% large volume syringe for autoinjector 40 mL 40 mL, Intravenous, IMG ONCE PRN, other, Imaging, Starting on Sat07/01/25 at 0022, For 1 dose Given 07/01/2025 12:22 AM EDT 40 mLs documented in this encounter Active and Recently Administered Medications Times are shown in EDT. Scheduled Medication Order 06/29/2025 06/30/2025 07/01/2025 potassium bicarbonate-citric acid (EFFER-K, K-LYTE) effervescent tablet for oral solution 50 mEq (COMPLETED) 50 mEq, Oral, ONCE, On Sat06/30/25 at 2200, For 1 dose, Completely dissolve the effervescent tablet in 3 ounces (90 mL) of water before drinking or administration. 2202 (Given - Provider: Quinton Marquis RN) PRN Medication Order 06/29/2025 06/30/2025 07/01/2025 iohexoL (OMNIPAQUE) 350 mg iodine/mL injection 120 mL (COMPLETED) 120 mL, Intravenous, IMG ONCE PRN, other, Starting on Sat07/01/25 at 0022, For 1 dose, Vesicant agents may cause severe tissue damage, including necrosis, if they extravasate into tissue; Common Side Effects: Headache, nausea, allergic reaction. 0022 (Given - Provid er: Linda Ovalles) sodium chloride 0.9% large volume syringe for autoinjector 40 mL (COMPLETED) 40 mL, Intravenous, IMG ONCE PRN, other, Imaging, Starting on Anastasiia 07/01/25 at 0022, For 1 dose 0022 (Given - Provid er: Linda Ovalles) documented in this encounter Care Teams Office Machines Sales Representative Relationship Specialty Start Date End Date No, Pcp (Do Not Change Name) PCP - General 06/20/25 documented as of this encounter
--- NOTE | ~2025-07-01 | XR_ITS ---
EXAMINATION: XR CHEST CLINICAL INFORMATION: cp/sob COMPARISON: January 30, 2025 TECHNIQUE: Frontal view of the chest was obtained. FINDINGS: Vague density in the right lung bases probably related to overlap of vessels and rib. Lungs clear otherwise. The heart size is within normal limits. XR/XR chest 1V IMPRESSION: Vague density in the right lung base is probably related to overlap of vessels and ribs, correlate for signs symptoms of pneumonia. Electronically signed by: Mauricio Andersen MD 07/01/2025 03:12 PM EDT
--- NOTE | 2025-07-01 14:05 | ECG_ITS ---
Test Reason : CP Blood Pressure : */* mmHG Vent. Rate : 63 BPM Atrial Rate : 63 BPM P-R Int : 148 ms QRS Dur : 94 ms QT Int : 410 ms P-R-T Axes : 56 22 27 degrees QTcB Int : 419 ms Normal sinus rhythm Normal ECG When compared with ECG of 09-Feb-2025 20:47, Nonspecific T wave abnormality now evident in Anterior leads Referred By: Generic ED Physician Electronically Signed By: RANDY MAHAN MD
[2025-07-01 14:13] VITALS: BP 197/83; PULSE 82; RESP 16; TEMP 36.4; O2SAT 99; BMI 36.0
--- NOTE | 2025-07-01 14:35 | ED.CHESTPAIN ---
HPI - Chest Pain General Chief Complaint: Chest Pain Stated Complaint: CP, high blood pressure Related Data Previous Rx's ?Medication ?Instructions ?Recorded dexamethasone 4 mg tablet 4 mg PO DAILY #5 tabs 10/25/20 (Decadron) hydrocodone 5 mg-acetaminophen 300 1 tab PO Q4-6H PRN pain #5 tabs 10/25/20 mg tablet methocarbamol 750 mg tablet 750 mg PO Q8H #10 tabs 10/25/20 (Robaxin-750) acetaminophen 500 mg tablet 1,000 mg (2 x 500 mg) PO QID PRN 11/22/20 (Tylenol Extra Strength) fever or pain #14 tabs oxycodone 5 mg tablet 5 mg PO BID PRN pain #10 tabs 11/22/20 prednisone 20 mg tablet 40 mg (2 x 20 mg) PO DAILY rash 5 11/22/20 days #10 tabs clindamycin HCl 300 mg capsule 300 mg PO Q6H 5 days #20 caps 08/12/22 cyclobenzaprine 10 mg tablet 10 mg PO TID PRN muscle spasm #20 01/30/25 tabs clindamycin HCl 300 mg capsule 300 mg PO Q6H #20 caps 02/09/25 Allergies Allergy/AdvReac Type Severity Reaction Status Date / Time aspirin (Aspirin) Allergy Unknown HIVES, Verified 07/01/25 14:17 swollen throat penicillin V Allergy Unknown swollen Verified 07/01/25 14:17 throat Penicillins Allergy Unknown BREATHING Verified 07/01/25 14:17 PROBLEM SEAFOOD Allergy Unknown ANAPHYLAXIS Uncoded 02/09/25 20:24 Shrimp Flavor Allergy Unknown Unknown Uncoded 02/09/25 20:24 [facility] Past Medical History Medical History Heart murmur Asthma Surgical History History of carpal tunnel surgery Social History Social History (Updated 01/30/25 @ 09:02 by Eden Campos DO) Alcohol intake: never Patient Tobacco Use Status: Never used Tobacco Advance Directives: No Advance Directives Information Provided: Yes Physical Exam Vital Signs: Vital Signs: Last Vital Signs Temp 97.6 F 07/01/25 14:13 Pulse 82 07/01/25 14:13 Resp 16 07/01/25 14:13 BP 197/83 H 07/01/25 14:13 Pulse Ox 99 07/01/25 14:13 O2 Del Method Room Air 07/01/25 14:13 BMI result Body Mass Index 36.0 Course Course Course Narrative: This is a Rapid Medical Examination (RME) performed by Krissy Ha PA-C in triage. Full HPI, ROS, assessment and treatment plan per primary provider in the Main ED. Hx: 45 yo F here for eval of L sided chest pain w/ CR. assoc b/l LE pain/ numbness intermittent. seen multiple times for this at other facilities. taking BP meds as prescribed. Plan: ekg, cxr, labs Reevaluation(s) Reevaluation #1: Patient left the emergency department before myself or any of the other clinicians could review or explain physical exam findings, test results, need or lack there of for additional testing, treatment options, or a treatment plan. Medical Decision Making Lab Data 07/01/25 15:32 07/01/25 15:32 Labs: Lab Results 07/01/25 Range/Units 15:32 WBC 12.3 H (4.8-10.8) X10*3/uL RBC 4.35 (4.20-5.50) X10*6/uL Hgb 10.3 L (12.0-16.0) g/dl Hct 32.2 L (37.0-47.0) % MCV 74.0 L (80.0-98.0) fL MCH 23.7 L (27.0-33.0) pg MCHC 32.0 (31.0-35.0) g/dl RDW 16.3 H (11.0-16.0) % Plt Count 413 H (160-400) X10*3/uL MPV 8.5 L (9.4-12.3) fL Immature Gran % (Auto) 0.4 (0.0-0.4) % Neut % (Auto) 58.7 (45-73) % Lymph % (Auto) 32.5 (20-40) % Faulk % (Auto) 6.7 (2-11) % Eos % (Auto) 1.5 (0-4) % Baso % (Auto) 0.2 (0-2) % Lymph # (Auto) 4.0 (1.2-4.9) X10*3/uL Faulk # (Auto) 0.8 (0.1-1.2) X10*3/uL Eos # (Auto) 0.2 (0.0-0.4) X10*3/uL Baso # (Auto) 0.0 (0.0-0.2) X10*3/uL Abs Immat Gran (auto) 0.05 H (0.00-0.03) X10*3/uL Absolute Neuts (auto) 7.2 (2.0-8.3) x10*3/uL Absolute Nucleated RBC 0.000 (0.0-0.012) X10*3/uL Nucleated RBC % (auto) 0.0 (0.0-0.2) /100WBC PT 11.6 (10.9-12.4) SEC INR 1.0 (0.9-1.1) Sodium 141 (135-145) mmol/L Potassium 3.3 (3.3-5.1) mmol/L Chloride 103 (96-108) mmol/L Carbon Dioxide 30 H (22-29) mmol/L Anion Gap 11 L (12-20) BUN 14 (9-16) mg/dL Creatinine 0.86 (0.5-1.4) mg/dL Estim Creat Clear Calc 92.5 Estimated GFR > 60 Random Glucose 90 (60-115) mg/dL Calcium 9.3 (8.4-10.2) mg/dL Total Bilirubin 0.3 (0.0-1.0) mg/dL AST 17 (5-31) U/L ALT 24 (0-31) U/L Alkaline Phosphatase 82 (39-117) U/L Troponin I High Sens < 2.7 (<3.5-17.0) ng/L B-Natriuretic Peptide 17 (<100) pg/mL Total Protein 7.7 (6.5-8.0) g/dL Albumin 4.2 (3.5-5.0) g/dL Beta HCG, Quant < 2 mIU/mL Discharge Plan Discharge Clinical Impression: Chest pain Patient Disposition: Left W/O Completing Treatment Prescriptions: No Action dexamethasone [Decadron] 4 mg tablet 4 mg PO DAILY Qty: 5 0RF methocarbamol [Robaxin-750] 750 mg tablet 750 mg PO Q8H Qty: 10 0RF hydrocodone-acetaminophen 5-300 mg tablet 1 tab PO Q4-6H PRN (Reason: pain) Qty: 5 0RF acetaminophen [Tylenol Extra Strength] 500 mg tablet 1,000 mg PO QID PRN (Reason: fever or pain) Qty: 14 0RF prednisone 20 mg tablet 40 mg PO DAILY 5 Days Qty: 10 0RF oxycodone 5 mg tablet 5 mg PO BID PRN (Reason: pain) Qty: 10 0RF clindamycin HCl 300 mg capsule 300 mg PO Q6H 5 Days Qty: 20 0RF cyclobenzaprine 10 mg tablet 10 mg PO TID PRN (Reason: muscle spasm) Qty: 20 0RF clindamycin HCl 300 mg capsule 300 mg PO Q6H Qty: 20 0RF Discharge Date/Time: 07/01/25 18:09
[2025-07-01 15:36] LABS: MANUAL DIFF FLAG NO
[2025-07-01 15:41] LABS: Hematocrit 32.2 % (37.0-47.0); Hemoglobin 10.3 g/dl (12.0-16.0); Imm Gran Abs Auto 0.05 X10*3/uL (0.00-0.03); Imm Gran Pct Auto 0.4 % (0.0-0.4); Lymphocytes Absolute Auto 4.0 X10*3/uL (1.2-4.9); Mean Corpuscular HGB Conc 32.0 g/dl (31.0-35.0); Mean Corpuscular Hemoglobin 23.7 pg (27.0-33.0); Mean Corpuscular Volume 74.0 fL (80.0-98.0); NRBC Abs Auto 0.000 X10*3/uL (0.0-0.012); NRBC Pct Auto 0.0 /100WBC (0.0-0.2); Platelet Count 413 X10*3/uL (160-400); Red Blood Count 4.35 X10*6/uL (4.20-5.50); White Blood Count 12.3 X10*3/uL (4.8-10.8)
[2025-07-01 15:45] LABS: INTERNATIONAL NORM RATIO 1.0 (0.9-1.1); Prothrombin Time 11.6 SEC (10.9-12.4)
[2025-07-01 16:01] LABS: Alanine Aminotransferase 24 U/L (0-31); Albumin Level 4.2 g/dL (3.5-5.0); Alkaline Phosphatase 82 U/L (39-117); Anion Gap 11 (12-20); Aspartate Amino Transferase 17 U/L (5-31); B Type Natriuretic Peptide 17 pg/mL (<100); Blood Urea Nitrogen 14 mg/dL (9-16); Calcium 9.3 mg/dL (8.4-10.2); Carbon Dioxide 30 mmol/L (22-29); Chloride 103 mmol/L (96-108); Creatinine Clr Calc Pharmacy 92.5; Estimated Glomerular Filt Rate > 60; Potassium 3.3 mmol/L (3.3-5.1); Sodium 141 mmol/L (135-145); Total Protein 7.7 g/dL (6.5-8.0); Troponin-I High Sensitivity < 2.7 ng/L (<3.5-17.0)
--- OUTSIDE RECORDS SUMMARY | 2025-07-01 18:40 | XMS_ITS | Clinical Summary ---
Author Organization [facility] Address [address] [place] [address] Care Team Providers Care Financial Sales Advisor Name Role Phone Unavailable Primary Care Provider Unavailabl e Allergies Active Allergy Reactions Criticality Noted Date Comments Aspirin 10/02/2021 Medications Medication Sig Dispensed Refills Start Date End Date Status vitamin D3 (CHOLECALCIFEROL) 1.25 MG (29382 UT) CAPS capsule Take 50,000 Units by [...] 62 10/16/2021 9:19 AM EST Temperature 36.4 C (97.5 F) 10/16/2021 9:19 AM EST Respiratory Rate - - Oxygen Saturation 100% [...] 1998 Cervical Cancer Screening (Pap Smear) 2001 Colon Cancer Screening (Colonoscopy) 2025 COVID-19 Vaccine (2 - 2024-2 6 season) 2025 06/28/2021 Influenza Vaccine (#1) 2025 , 07/09/2019, 07/31/2018 DTap / Tdap / Td (2 - Td or Tdap) 07/31/2028 07/31/2018 Pneumococcal Vaccine Aged Out No long er eligible based on patient's age to complete this topic RSV Ped < 20 months Aged Out No longe r eligible based on patient's age to complete this topic
--- OUTSIDE RECORDS SUMMARY | 2025-07-01 18:41 | XMS_ITS | Clinical Summary ---
Author Organization [address] [facility] Address [address] [place] [address] Care Team Providers Care Mill Operator Helper Name Role Phone No, Pcp (Do Not Change Name) Primary Care Provid er Unavailable Allergies Active Allergy Reactions Criticality Noted Date Comments Aspirin Hives High 06/25/2025 Penicillins Hives High 06/25/2025 Medications amLODIPine (NORVASC) 5 mg tablet Take 1 tablet (5 mg total) by mouth daily. 5 Active glucose 4 GM chewable tablet Take 4 tablets (16 g total) by mouth as needed. Active methylPREDNISol one (MEDROL DOSEPACK) 4 mg tablet follow package directions 21 tablet 5 07/02/20 25 Active baclofen (LIORESAL) 10 mg tablet Take 1 tablet (10 mg total) by mouth 2 (two) times daily for 7 days. 14 tablet 5 07/02/20 25 Active lidocaine (LIDODERM) 5 % Place 1 patch over 12 hours onto the skin every 24 hours. Remove & Discard patch within 12 hours or as directed by 30 patch 5 Active amLODIPine (NORVASC) 5 mg tablet Take 1 tablet (5 mg total) by mouth daily. 30 tablet 5 Active Encounters Date Type Department Care Team Description 06/30/2025 8:17 PM EDT - 07/01/2025 2:00 AM EDT Emergency [facility] Emergency Department [address] [place] [id number] Pedro Drew MD Chest pain, unspecified type (Primary Dx); Pain in left lower leg Discharge Disposition: Home or Self Care 06/25/2025 6:17 PM EDT - 06/26/2025 12:10 AM EDT Hospital Encounter [facility] Emergency Department [address] [place] [address] Radha Richmond MD Chest pain, unspecified type (Primary Dx); Cervical radiculopathy Discharge Disposition: Home or Self Care 06/25/2025 2:30 PM EDT Office Visit [facility] [address] [place] [address] Ligia Paz PA-C Chest pain, unspecified type (Primary Dx) 06/25/2025 Travel from Last 3 Months Social History Tobacco Use Types Packs/Day Years Used Date Smoking Tobacco: Never Tobacco Cessation:Counseling Given: Not Answered Alcohol Use Standard Drinks/Week Comments Never 0 [...] 5.5 oz) 06/30/2025 6:34 PM EDT Height 157.5 cm (5' 2 ) 06/25/2025 2:38 PM EDT Body Mass Index 40.48 06/25/2025 2:38 PM EDT Plan of Treatment Health Maintenance Due Date Last Done Comments HIV screening 1993 Hepatitis C screening 1998 Cervical cancer screening 2001 Breast cancer screening 2020 Lipid disorder screening 2020 Colon cancer screening, Colonoscopy 2025 Influenza vaccine 05/21/2025 07/10/2021, 07/09/2019, 07/31/2018 Covid-19 vaccine series ( - season) 2025 06/28/2021 Diabetes screening 06/30/2028 06/30/2025, 06/25/2025 Tetanus adult (Td q 10,TDAP once) 07/31/2028 07/31/2018, 11/30/2009 RSV Immunization (1 - 1-dose 75+ series) 2055 Meningococcal B Vaccine Aged Out No l onger eligible based on patient's age to complete this topic Meningococcal Vaccine Aged Out No karen andreea eligible based on patient's age to complete this topic Pneumococcal Vaccine (2 - 49 years) Aged Out No longer eligible b ased on patient's age to complete this topic Procedures Procedure Name Priority Date/Time Associated Diagnosis Comments US DUPLEX LOWER EXTREMITY VENOUS LEFT Within 2 hours (STAT) 07/01/2025 1:13 AM EDT CTA CHEST ABDOMEN W AND/OR WO IV CONTRAST Within 2 hours (STAT) 07/01/2025 12:22 AM EDT TROPONIN T HIGH SENSITIVITY, 1 HOUR WITH REFLEX (BH GH LMW YH) STAT - Timed 06/30/2025 9:18 PM EDT XR CHEST PA AND LATERAL STAT 06/30/2025 7:55 PM EDT COMPREHENSIVE METABOLIC PANEL Routine 06/30/2025 7:04 PM EDT CBC AND DIFFERENTIAL STAT 06/30/2025 7:04 PM EDT MAGNESIUM Routine 06/30/2025 7:04 PM EDT PROTIME AND INR STAT 06/30/2025 7:04 PM EDT COMPREHENSIVE METABOLIC PANEL Routine 06/30/2025 7:04 PM EDT CBC WITH AUTO DIFFERENTIAL STAT 06/30/2025 7:04 PM EDT TROPONIN T HIGH SENSITIVITY, 0 HOUR BASELINE WITH REFLEX ( GH LMW YH) STAT 06/30/2025 7:04 PM EDT EKG Routine 06/30/2025 6:39 PM EDT CTA CHEST (PE) W IV CONTRAST Within [...] METABOLIC PANEL Routine 06/25/2025 7:35 PM EDT CBC AND DIFFERENTIAL STAT 06/25/2025 7:35 PM EDT D-DIMER, QUANTITATIVE Routine 06/25/2025 7:35 PM EDT COMPREHENSIVE METABOLIC PANEL Routine 06/25/2025 7:35 PM EDT CBC WITH AUTO DIFFERENTIAL STAT 06/25/2025 7:35 PM EDT TROPONIN T HIGH SENSITIVITY, 0 HOUR BASELINE WITH REFLEX ( GH LMW YH) STAT 06/25/2025 7:35 PM EDT MAGNESIUM Routine 06/25/2025 7:35 PM EDT XR CHEST PA AND LATERAL Within 1 hour (STAT) 06/25/2025 6:52 PM EDT EKG Routine 06/25/2025 3:36 PM EDT EKG Routine 06/25/2025 2:30 PM EDT Chest pain, unspecified type CARDIAC EKG RESULT SCAN 06/25/2025 12:00 AM EDT from Last 3 Months Results * US Duplex Lower Extremity Venous [...] of an unseen thrombus from the calf. [place] [facility] Classification: Routine. Report initiated by: Felton Guajardo MD Reported and signed by: Mora Jiang MD Narrative 07/01/2025 1:45 AM EDT US DUPLEX LOWER [...] propagation of an unseen thrombus from thecalf. [place] [facility] Classification: Routine. Report initiated by: Felton Guajardo MD Reported and signed by: Mora Jiang MD Dusty ELIAS [facility] US ORDERABLES Final Res ult * CTA [...] acute abnormality in the chest or abdomen. [place] [facility] Classification: Routine. Report initiated [...] acute abnormality in the chest or abdomen. [place] [facility] Classification: Routine. Report initiated by: Felton Guajardo MD Reported and signed by: Ian Caro MD Dusty ELIAS IMG CT ORDERABLES Final Res ult * Troponin T High Sensitivity, 1 Hour With Reflex ( GH LMW Y) (06/30/2025 9:18 PM EDT) Only the most recent of2 resultswithin the time period is included. High Sensitivity Troponin T <6 See Comment ng/L 06/30/2025 10:00 PM EDT [facility] Comment:High Sensitivity Tro ponin T levels should be interpreted in the context of the [facility] Care Signature pathway. 1 hour Delta from 0 Hour, HS-Troponin T 0 ng/L 06/30/2025 10:00 PM EDT [facility] Blood Venipuncture / Unknown 06/30/2025 9:18 PM EDT 06/30/2025 9:28 PM EDT Maria C Rasmussen MD LAB BLOOD ORDERABLES Final Re sult [address] [phone] * CXR (06/30/2025 7:55 PM EDT) Only the most recent of2 resultswithin the time period is included. Anatomical Region Laterality Modality Chest Computed Radiogr aphy 06/30/2025 7:56 PM EDT Impressions 06/30/2025 7:57 PM EDT No acute findings. [facility] Radiology Notify System Classification: Routine. Reported [...] No acute findings. IMPRESSION: No acute findings. [facility] Radiology Notify System Classification: Routine. Reported and signed by: Angie Maxwell MD Maria C Rasmussen MD IMG DIAGNOSTIC IMAGING ORDERA BLES Final Result * (ABNORMAL) Comprehensive metabolic panel (06/30/2025 7:04 PM EDT) Only the most recent of2 resultswithin the time period is included. Sodium 138 136 - 144 mmol/L [facility] Potassium 3.2(L) 3.3 - 5.3 mmol/L 06/30/2025 7[facility] Chloride 101 98 - 107 mmol/L 06/30/2025 7:54 PM EDT [facility] CO2 25 20 - 30 mmol/L 06/30/2025 7:54 PM T [facility] Anion Gap 12 7 - 17 06/30/2025 7[facility] Glucose 119(H) 70 - 100 mg/dL 06/30/2025 7:54 PM EDT [facility] BUN 14 6 - 20 mg/dL 06/30/2025 7:54 PM EDT [facility] Creatinine 0.79 0.40 - 1.30 mg/dL 06/30/2025 7:54 PM EDT [facility] Calcium 9.6 8.8 - 10.2 mg/dL 06/30/2025 7:54 PM [facility] BUN/Creatinine Ratio 17.7 8.0 - 23.0 06/30/2025 7:54 PM [facility] Total Protein 8.1 5.9 - 8.3 g/dL 7:54 PM [facility] Albumin 4.3 3.6 - 5.1 g/dL 06/30/2025 7:54 PM [facility] Total Bilirubin 0.3 <=1.2 mg/dL 06/30/20 25 7:54 PM [facility] Alkaline Phosphatase 94 9 - 122 U/L 06/30/2025 7:54 PM [facility] Alanine Aminotransferase (ALT) 24 10 - 35 U/L 06/30/2025 7:54 PM [facility] Comment:Calcium dobesilate c an cause artificially low ALT results at therapeutic concentrations Aspartate Aminotransferase (AST) 19 10 - 35 U/L 06/30/2025 7:54 PM [facility] Globulin 3.8 2.0 - 3.9 g/dL 06/30/2025 7:54 PM [facility] A/G Ratio 1.1 1.0 - 2.2 06/30/2025 7:54 PM [facility] AST/ALT Ratio 0.8 Reference Range Not Established 06/30/2025 7:54 PM [facility] eGFR (Creatinine) >60 >=60 mL/min/1.73m2 06/30/2025 7:54 PM [facility] Comment: [facility] utilizes CKD-EPI Creatinine 2020 to report eGFR. Values < 60 mL/min/1.73 m2 may indicate CKD if present for more than three months AND creatinine is at steady state. The eGFR provides a rough estimate of kidney function. For further guidance, please refer to the CKD: Adult Cdl A Driver Signature pathway. Creatinine Delta 0.02 See Comment 7:54 PM [facility] Comment: Delta creatinine is the difference [...] ORDERABLES Final Re sult Performing Organization Address [facility] Number [address] [phone] * Troponin T High Sensitivity, Emergency; 0 hour baseline AND 1 hour with reflex (3 hour) (57:04 PM EDT) Only the most recent of2 resultswithin the time period is included. [facility] High Sensitivity Troponin T <6 See Comment ng/L 06/30/2025 7:37 PM EDT [facility] Comment:High Sensitivity Tro ponin T levels should be interpreted in the context of the [facility] Care Signature pathway. Blood Venipuncture / Unknown 06/30/2025 7:04 PM EDT 06/30/2025 7:11 PM EDT Maria C Rasmussen MD LAB BLOOD ORDERABLES Final Re sult Performing Organization Address [facility] Phone Number [address] [phone] * (ABNORMAL) CBC auto differential (06/30/2025 7:04 PM EDT) Only the most recent of2 resultswithin the time period is included. [facility] WBC 13.5(H) 4.0 - 11.0 x1000/ L 06/30/2025 7:15 PM EDT [facility] RBC 4.43 4.00 - 6.00 M/ L 06/30/2025 7:15 PM T [facility] Hemoglobin 10.6(L) 11.7 - 15.5 g/dL 06/30/2025 7:15 PM [facility] Hematocrit 33.60(L) 35.00 - 45.00 % 06/30/2025 7:15 PM [facility] MCV 75.8(L) 80.0 - 100.0 fL 06/30/2025 7:15 PM [facility] MCH 23.9(L) 27.0 - 33.0 pg 06/30/2025 7:15 PM [facility] MCHC 31.5 31.0 - 36.0 g/dL 06/30/2025 7:15 PM [facility] RDW-CV 15.9(H) 11.0 - 15.0 % 06/30/2025 7:15 PM [facility] Platelets 471(H) 150 - 420 x1000/ L 06/30/2025 7:15 PM [facility] MPV 9.0 8.0 - 12.0 fL 06/30/2025 7:15 PM [facility] Neutrophils 70.9 39.0 - 72.0 % 06/30/2025 7:15 PM [facility] Lymphocytes 22.1 17.0 - 50.0 % 06/30/2025 7:15 PM [facility] Monocytes 5.6 4.0 - 12.0 % 06/30/2025 7:15 PM [facility] Eosinophils 0.5 0.0 - 5.0 % 06/30/2025 7:15 PM [facility] Basophil 0.3 0.0 - 1.4 % 06/30/2025 7:15 PM [facility] Immature Granulocytes 0.6 0.0 - 1.0 % 06/30/2025 7:15 PM [facility] nRBC 0.0 0.0 - 1.0 % 06/30/2025 7:15 PM [facility] Absolute Lymphocyte Count 2.98 0.60 - 3.70 x 1000/ L 06/30/2025 7:15 PM [facility] Monocyte Absolute Count 0.75 0.00 - 1.00 x 1000/ L 06/30/2025 7:15 PM [facility] Eosinophil Absolute Count 0.07 0.00 - 1.00 x 1000/ L 06/30/2025 7:15 PM EDT [facility] Basophil Absolute Count 0.04 0.00 - 1.00 x 1000/ L 06/30/2025 7:15 PM EDT [facility] Absolute Immature Granulocyte Count 0.08 0.00 - 0.30 x 1000/ L 06/30/2025 7:15 PM EDT [facility] Absolute nRBC 0.00 0.00 - 1.00 x 1000/ L 06/30/2025 7:15 PM EDT [facility] ANC (Abs Neutrophil Count) 9.55(H) 2.00 - 7.60 x 1000/ L 06/30/2025 7:15 PM EDT [facility] Blood Venipuncture / Unknown 06/30/2025 7:04 PM EDT 06/30/2025 7:11 PM EDT Maria C Rasmussen MD LAB BLOOD ORDERABLES Final Re sult Performing Organization Address [facility] Co de Phone Number [address] [phone] * PT/INR (06/30/2025 7:04 PM EDT) [facility] Prothrombin Time 10.5 9.0 - 12.0 seconds 06/30/2025 7:39 PM EDT [facility] INR 1.01 0.90 - 1.10 06/30/2025 7:39 PM EDT [facility] Blood Venipuncture / Unknown 06/30/2025 7:04 PM EDT 06/30/2025 7:11 PM EDT Narrative [facility] - 06/30/2025 7:39 PM EDT Effective 06/24/2025. New Normal Reference Intervals are in place at all [facility] Labs. us Maria C Rasmussen MD LAB BLOOD ORDERABLES Final Re sult Performing Organization Address [facility]/ZIP Co de Phone Number [address] [phone] * Mag (06/30/2025 7:04 PM EDT) Only the most recent of2 resultswithin the time period is included. Magnesium 1.9 1.7 - 2.4 mg/dL 06/30/2025 7:38 PM EDT [facility] Blood Venipuncture / Unknown 06/30/2025 7:04 PM EDT 06/30/2025 7:11 PM EDT Maria C Rasmussen MD LAB BLOOD ORDERABLES Final Re sult Performing Organization Address [facility] Co de Phone Number [address] [phone] * EKG (06/30/2025 6:39 PM EDT) Only the most recent of3 resultswithin the time period is included. Heart Rate 68 bpm [facility] ECG QRS Interval 98 ms [facility] ECG QT Interval 404 ms [facility] ECG QTC Interval 429 ms [facility] ECG P Dafter 57 deg [facility] ECG QRS Dafter 33 deg [facility] ECG T Wave Dafter 35 deg [facility] ECG P-R Interval 146 msec [facility] ECG SEVERITY Borderline ECG severity [facility] ECG Comment::Normal sinus rhythm :Incomplete right bundle branch block:left ventricular hypertrophy by voltage:Borderline ECG:Electronically Signed On 07-01-2025 13:23:32 EDT by Ross Cheung MD OTHER / Unknown 06/30/2025 6 :39 PM EDT Maria C Rasmussen MD ECG ORDERABLES Final Result Performing Organization Address City/[facility]/ZIP Co de Phone Number [facility] ECG * CTA Chest (PE) w IV Contrast (06/25/2025 9:20 PM EDT) Anatomical Region Laterality Modality Chest Computed Tomogra phy 06/25/2025 9:12 PM EDT Impressions 06/25/2025 9:52 PM EDT No evidence of pulmonary embolism or acute thoracic pathology. [place] [facility] Classification: Routine. Report initiated by: Toño Perez MD Reported and signed by: Peter Ivory MD Narrative 06/25/2025 9:52 PM EDT CTA PE (CHEST) [...] of pulmonary embolism or acute thoracic pathology. [place] [facility] Classification: Routine. Report initiated by: Toño Perez MD Reported and signed by: Peter Ivory MD Zeny ELIAS IMG CT ORDERABLES [place] l Result * POCT urine (06/25/2025 8:33 PM EDT) Preg Test, Ur, POC Negative Negative [facility] Line in Control Window? (+ Control) Yes [facility] Background Clear? (- Control) Yes [facility] Kit Lot Number [id number] [facility] Expiration Date 12-09-2026 [facility] Urine URINE SPECIMEN / Unknown 06/25/2025 8:33 PM EDT Zeny ELIAS POINT OF CARE TEST ORD ERABLES Final Result [facility] [place], [place], [facility] * Urinalysis with culture reflex ( LMW YH) (06/25/2025 8:28 PM EDT) Clarity, UA Clear Clear 06/25/2025 8:42 PM EDT [facility] Color, UA Yellow Yellow, Colorless 06/25/2025 8:42 PM EDT [facility] Specific [place], UA 1.016 1.005 - 1.030 06/25/2025 8:42 PM EDT [facility] pH, UA 6.0 5.5 - 7.5 06/25/2025 8:42 PM EDT [facility] Protein, UA Negative Negative, Trace 06/25/2025 8:42 PM EDT [facility] Glucose, UA Negative Negative 06/25/2025 8:42 PM EDT [facility] Ketones, UA Negative Negative 06/25/2025 8:42 PM EDT [facility] Blood, UA Negative Negative 06/25/2025 8:42 PM EDT [facility] Bilirubin, UA Negative Negative 06/25/2025 8:42 PM EDT [facility] Leukocytes, UA Negative Negative 06/25/2025 8:42 PM EDT [facility] Nitrite, UA Negative Negative 06/25/2025 8:42 PM EDT [facility] Urobilinogen, UA <2.0 <=2.0 mg/dL 06/25/2025 8:42 PM EDT [facility] Krueger Top Tube Received ? Yes 06/25/2025 8:42 PM EDT [facility] Urine URINE SPECIMEN OBTAINED BY CLEAN CATCH PROCEDURE / Unknown Collection / Unknown 06/25/2025 8:28 PM EDT 06/25/2025 8:33 PM EDT Zeny ELIAS URINE ORDERABLES Final Result Performing Organization Address City/[facility]/ZIP Co de Phone Number [address] [phone] * UA reflex to culture (06/25/2025 8:28 PM EDT) Reflex Urine Culture See Comment 06/26/2025 2:00 AM EDT [facility] Urine URINE SPECIMEN OBTAINED BY CLEAN CATCH PROCEDURE / Unknown Collection / Unknown 06/25/2025 8:28 PM EDT 06/25/2025 8:33 PM EDT Narrative [facility] DEPARTMENT OF LABORATORY MEDICINE - 06/26/2025 2:00 AM EDT Urine culture will be reflexed if indicated by urinalysis results. Please check microbiology results for urine culture. Zeny ELIAS URINE ORDERABLES Final Result [facility] DEPARTMENT OF LABORATORY MEDICINE [address] [place] [id number] [place] [address] [phone] * (ABNORMAL) D-dimer, quantitative (06/25/2025 7:35 PM EDT) D-Dimer 0.51(H) <=0.50 mg/L FEU 06/25/2025 8:04 PM EDT [facility] Blood Venipuncture / Unknown 06/25/2025 7:35 PM EDT 06/25/2025 7:47 PM EDT Narrative [facility] - 06/25/2025 8:04 PM EDT For a [...] 98.6% sensitivity (95% CI = 92.5-100%). [Standard ([id number]) Reference Interval: 0.19 - 0.52 mg/L FEU] us Zeny ELIAS LAB BLOOD ORDERAB[place] [address], [facility] [phone] * Cardiac EKG Result Scan (06/25/2025 12:00 AM EDT) us Provider Not In System CV CARDIAC REPORT (CVR) F inal Result from Last 3 Months Insurance [address]ICAID MANAGED [facility] [id number] MEDICAID MEDICAID MANAGED [facility] [id number] MEDICAID MEDICAID MANAGED [facility] [id number] MEDICAID Care Teams Mill Operator Helper Relationship Specialty Start Date End Date No, Pcp (Do Not Change Name) PCP - General 06/20/25
--- OUTSIDE RECORDS SUMMARY | 2025-07-01 18:41 | XMS_ITS ---
Author Name [facility] Organization Unknown Results Test Name/Text Value Interpretation Date Range Source Troponin T SerPl HS-mCnc 0.0 ng/L 07/01/2025 [facility] BUN SerPl-mCnc 14.0 mg/dL 06/30/2025 6 - 20 [facility] ALP SerPl-cCnc 94.0 U/L 06/30/2025 9 - 122 [facility] HCT HCO3 SerPl-sCnc 25.0 mmol/L 06/30/2025 20 - 30 [facility] BKR CREATININE DELTA 0.02 06/30/2025 - [facility] GFR SerPlBld Creatinine-bsd fmla CKD-EPI >60.0 mL/min/1.73m2 06/30/2025 - [facility] Calcium SerPl-mCnc 9.6 mg/dL 06/30/2025 8.8 - 10.2 [facility] AST SerPl w P-5'-P-cCnc 19.0 U/L 06/30/2025 10 - 35 [facility] Chloride SerPl-sCnc 101.0 mmol/L 06/30/2025 98 - 1 07 [facility] Glucose SerPl-mCnc 119.0 mg/dL Above high normal 06/30/2025 70 - 100 [facility] Bilirub SerPl-mCnc 0.3 mg/dL 06/30/2025 - [facility] Albumin/Glob SerPl 1.1 06/30/2025 1 - 2.2 [facility] ALT SerPl w/o P-5'-P-cCnc 24.0 U/L 06/30/2025 10 - 35 [facility] BUN/Creat SerPl 17.7 06/30/2025 8 - 23 [facility] Potassium SerPl-sCnc 3.2 mmol/L Below low normal 06/30/2025 3.3 - 5.3 [facility] Albumin SerPl BCG-mCnc 4.3 g/dL 06/30/2025 3.6 - 5.1 [facility] Sodium SerPl-sCnc 138.0 mmol/L 06/30/2025 136 - 14 4 [facility] Creat SerPl-mCnc 0.79 mg/dL 06/30/2025 0.4 - 1.3 [facility] Globulin Plas-mCnc 3.8 g/dL 06/30/2025 2 - 3.9 [facility] AST/ALT SerPl-cRto 0.8 06/30/2025 - [facility] Anion Gap SerPl Calculated.3Ions-sCn c 12.0 06/30/2025 7 - 17 [facility] Prot SerPl-mCnc 8.1 g/dL 06/30/2025 5.9 - 8.3 [facility] Prothrombin time 10.5 seconds 06/30/2025 9 - 12 [facility] INR PPP 1.01 06/30/2025 0.9 - 1.1 [facility] Magnesium SerPl-mCnc 1.9 mg/dL 06/30/2025 1.7 - 2. 4 [facility] Troponin T SerPl HS-mCnc <6.0 ng/L 06/30/2025 - [facility] nRBC Bld Auto-Rto 0.0 % 06/30/2025 0 - 1 [facility] Lymphocytes NFr Bld Auto 22.1 % 06/30/2025 17 - 50 [facility] Basophils NFr Bld Auto 0.3 % 06/30/2025 0 - 1.4 [facility] Imm Granulocytes # Bld Auto 0.08 x 1000/uL 06/30/2025 0 - 0.3 [facility] MCHC RBC Auto-EntMCnc 31.5 g/dL 06/30/2025 31 - 36 [facility] Basophils # Bld Auto 0.04 x 1000/uL 06/30/2025 0 - 1 [facility] Lymphocytes # Bld Auto 2.98 x 1000/uL 06/30/2025 0.6 - 3.7 [facility] Monocytes # Bld Auto 0.75 x 1000/uL 06/30/2025 0 - 1 [facility] RBC # Bld Auto 4.43 M/uL 06/30/2025 4 - 6 [facility] Hct VFr Bld Auto 33.6 % Below low normal 06/30/2025 35 - 45 [facility] WBC # Bld Auto 13.5 x1000/uL Above high normal 06/30/2025 4 - 11 [facility] Monocytes NFr Bld Auto 5.6 % 06/30/2025 4 - 12 [facility] Neutrophils # Bld Auto 9.55 x 1000/uL Above high normal 06/30/2025 2 - 7.6 [facility] nRBC # Bld Auto 0.0 x 1000/uL 06/30/2025 0 - 1 [facility] RDW RBC Auto 15.9 % Above high normal 06/30/2025 11 - 15 [facility] PMV Bld Auto 9.0 fL 06/30/2025 8 - 12 [facility] T RBC Auto 75.8 fL Below low normal 06/30/2025 80 - 100 [facility] MCH RBC Qn Auto 23.9 pg Below low normal 06/30/2025 27 - 3 3 [facility] Platelet # Bld Auto 471.0 x1000/uL Above high normal 025 150 - 420 [facility] Imm Granulocytes NFr Bld Auto 0.6 % 06/30/2025 0 - 1 [facility] Eosinophil # Bld Auto 0.07 x 1000/uL 06/30/2025 0 - 1 [facility] Eosinophil NFr Bld Auto 0.5 % 06/30/2025 0 - 5 [facility] Neutrophils NFr Bld Auto 70.9 % 06/30/2025 39 - 72 [facility] Hgb Bld-mCnc 10.6 g/dL Below low normal 06/30/2025 11.7 - 15 .5 [facility] Troponin T SerPl HS-mCnc 0.0 ng/L 06/26/2025 [facility] BKR REFLEX URINE CULTURE See Comment 06/26/2025 [facility] Clarity Ur Refract.auto Clear 06/26/2025 - [facility] Nitrite Ur Ql Strip.auto Negative 06/26/2025 - [facility] Color Ur Auto Yellow 06/26/2025 - [facility] WBC # Ur Strip Negative 06/26/2025 - [facility] HCT Ketones Ur Strip.auto-mCnc Negative 06/26/2025 - [facility] Prot Ur Strip.auto-mCnc Negative 06/26/2025 - [facility] Bilirub Ur Ql Strip.auto Negative 06/26/2025 - [facility] Urobilinogen Ur Strip-mCnc <2.0 mg/dL 06/26/2025 - [facility] Sp Gr Ur Refract.auto 1.016 06/26/2025 1.005 - 1.03 [facility] Glucose Ur Strip.auto-mCnc Negative 06/26/2025 - [facility] pH Ur Strip.auto 6.0 06/26/2025 5.5 - 7.5 [facility] BKR TEST RECEIVED Yes 06/26/2025 [facility] Hgb Ur Ql Strip.auto Negative 06/26/2025 - [facility] AST/ALT SerPl-cRto 1.3 06/26/2025 - [facility] ALP SerPl-cCnc 93.0 U/L 06/26/2025 9 - 122 [facility] HCT Albumin SerPl BCG-mCnc 4.5 g/dL 06/26/2025 3.6 - 5.1 [facility] BUN SerPl-mCnc 8.0 mg/dL 06/26/2025 6 - 20 [facility] HCT BKR CREATININE DELTA 06/26/2025 [facility] ALT SerPl w/o P-5'-P-cCnc 27.0 U/L 06/26/2025 10 - 35 [facility] Chloride SerPl-sCnc 103.0 mmol/L 06/26/2025 98 - 1 07 [facility] Prot SerPl-mCnc 8.2 g/dL 06/26/2025 5.9 - 8.3 [facility] BUN/Creat SerPl 10.4 06/26/2025 8 - 23 [facility] Albumin/Glob SerPl 1.2 06/26/2025 1 - 2.2 [facility] AST SerPl w P-5'-P-cCnc 35.0 U/L 06/26/2025 10 - 35 [facility] Potassium SerPl-sCnc 4.1 mmol/L 06/26/2025 3.3 - 5 .3 [facility] Sodium SerPl-sCnc 137.0 mmol/L 06/26/2025 136 - 14 4 [facility] Creat SerPl-mCnc 0.77 mg/dL 06/26/2025 0.4 - 1.3 [facility] HCO3 SerPl-sCnc 23.0 mmol/L 06/26/2025 20 - 30 [facility] Calcium SerPl-mCnc 9.5 mg/dL 06/26/2025 8.8 - 10.2 [facility] Glucose SerPl-mCnc 92.0 mg/dL 06/26/2025 70 - 100 [facility] Anion Gap SerPl Calculated.3Ions-sCn c 11.0 06/26/2025 7 - 17 [facility] GFR SerPlBld Creatinine-bsd fmla CKD-EPI >60.0 mL/min/1.73m2 06/26/2025 - [facility] Globulin Plas-mCnc 3.7 g/dL 06/26/2025 2 - 3.9 [facility] Bilirub SerPl-mCnc 0.5 mg/dL 06/26/2025 - [facility] Magnesium SerPl-mCnc 2.0 mg/dL 06/26/2025 1.7 - 2. 4 [facility] Troponin T SerPl HS-mCnc <6.0 ng/L 06/26/2025 - [facility] D Dimer PPP FEU-mCnc 0.51 mg/L FEU Above high normal 025 - [facility] RDW RBC Auto 15.8 % Above high normal 06/25/2025 11 - 15 [facility] Monocytes NFr Bld Auto 5.8 % 06/25/2025 4 - 12 [facility] Lymphocytes # Bld Auto 3.69 x 1000/uL 06/25/2025 0.6 - 3.7 [facility] Hgb Bld-mCnc 10.3 g/dL Below low normal 06/25/2025 11.7 - 15 .5 [facility] Platelet # Bld Auto 348.0 x1000/uL 06/25/2025 150 - 420 [facility] Imm Granulocytes # Bld Auto 0.03 x 1000/uL 06/25/2025 0 - 0.3 [facility] Neutrophils NFr Bld Auto 56.8 % 06/25/2025 39 - 72 [facility] MCH RBC Qn Auto 23.3 pg Below low normal 06/25/2025 27 - 3 3 [facility] Basophils NFr Bld Auto 0.3 % 06/25/2025 0 - 1.4 [facility] PMV Bld Auto 9.4 fL 06/25/2025 8 - 12 [facility] T nRBC # Bld Auto 0.0 x 1000/uL 06/25/2025 0 - 1 [facility] nRBC Bld Auto-Rto 0.0 % 06/25/2025 0 - 1 [facility] Basophils # Bld Auto 0.03 x 1000/uL 06/25/2025 0 - 1 [facility] Imm Granulocytes NFr Bld Auto 0.3 % 06/25/2025 0 - 1 [facility] Hct VFr Bld Auto 33.1 % Below low normal 06/25/2025 35 - 45 [facility] Eosinophil # Bld Auto 0.14 x 1000/uL 06/25/2025 0 - 1 [facility] Lymphocytes NFr Bld Auto 35.5 % 06/25/2025 17 - 50 [facility] MCHC RBC Auto-EntMCnc 31.1 g/dL 06/25/2025 31 - 36 [facility] Eosinophil NFr Bld Auto 1.3 % 06/25/2025 0 - 5 [facility] RBC # Bld Auto 4.42 M/uL 06/25/2025 4 - 6 [facility] HCT Neutrophils # Bld Auto 5.89 x 1000/uL 06/25/2025 2 - 7.6 [facility] Monocytes # Bld Auto 0.6 x 1000/uL 06/25/2025 0 - 1 [facility] WBC # Bld Auto 10.4 x1000/uL 06/25/2025 4 - 11 [facility] RBC Auto 74.9 fL Below low normal 06/25/2025 80 - 100 [facility] History of Medication Use Medication Directions Dispensed Refills Start Date End Date Stat amLODIPine (NORVASC) 5 mg tablet Take 1 tablet (5 mg total) by mouth daily. 05/27/2025 active Allergies Allergen Reaction Severity Comment Documented Date Source Statu s ASPIRIN HIVES 06/25/2025 [facility] active PENICILLINS HIVES 06/25/2025 [facility] active Problems Problem Status Onset Date Problem Type Date of Resolution Source Chest pain, unspecified type active EncounterDiagnosisAct [facility] Encounters Encounter Type Encounter Reason Primary Diagnosis Location Date Emergency Chest pain, unspecified Chest pain, unspecified [facility] 06/30/2025 Emergency Chest pain, unspecified Chest pain, unspecified [facility] 06/25/2025 Ambulatory Chest pain, unspecified Chest pain, unspecified [facility] 06/25/2025 Care Team Organization Name Specialty Phone Email Start Date End Da te [facility] 06/26/2025 [facility] 06/26/2025 [facility] 06/25/2025 [facility]AN[email or web address] 4 [facility] 12/26/202205/21 4 [facility] 08/28/2022 4
== END 2025-07-01 18:09 | disposition left against medical advice (07) ==
PROVIDERS: Emergency Provider Emergency Medicine; PCP Physician Assistant
DX: R07.9 Chest pain, unspecified (principal); Z53.21 Procedure and treatment not carried out due to patient leaving prior to being seen by health care provider
CPT/HCPCS: 36415; 71045; 80053; 83880; 84484; 84702; 85025; 85610; 93005; 99283

== ENCOUNTER → 2025-07-01 14:05 | Outpatient (BNV) | payer OTHER, SELFPAY | PROVIDERS: PCP Physician Assistant; Visit Provider Internal Medicine Cardiovascular Disease | DX: R07.89 Other chest pain (principal) | CPT/HCPCS: 93010 ==

== ENCOUNTER → 2025-07-01 14:45 | Outpatient (BNV) | payer OTHER, SELFPAY | PROVIDERS: PCP Physician Assistant; Visit Provider Radiology Diagnostic Radiology | DX: R07.9 Chest pain, unspecified (principal) | CPT/HCPCS: 71045 ==